=== PATIENT | male | born 1955 | race Two or more races ===

== ENCOUNTER 2023-04-14 05:06 | Emergency (ER) | payer OTHER ==
[~2023-04-14] VITALS: Ht 182.9 cm; Wt 122.7 kg
[2023-04-14 05:20] VITALS: BP 145/88; PULSE 90; RESP 16; O2SAT 95
== END 2023-04-14 06:37 | disposition left against medical advice (07) ==
LOC: ER 05:06
DX: R22.41 Localized swelling, mass and lump, right lower limb (principal); M79.604 Pain in right leg; R22.43 Localized swelling, mass and lump, lower limb, bilateral; Z53.21 Procedure and treatment not carried out due to patient leaving prior to being seen by health care provider

== ENCOUNTER 2025-05-17 16:27 | Inpatient (IN) | payer OTHER ==
[~2025-05-17] VITALS: Ht 182.9 cm; Wt 118.1 kg
[2025-05-17] MEDS ORDERED: CEFEPIME 1GM/50ML 50 ML IV ONE (16:45)
--- NOTE | 2025-05-17 16:55 | ED.PDOC ---
GI ASSESSMENT HPI Comments HPI: This is a 70 year old male MEÑOA presenting to the ED with chief complaint of abdominal pain. EMS reports that the patient had been lifting heavy rocks today and then started to experience umbilical abdominal pain at the center of a hernia he has had for the past 2 years. Patient relays that his pain has been occurring over the past 2 years he has had the hernia, but worsened the last 2 hours. EMS states patient has associated symptoms of fever, bilateral leg edema, and SOB with an O2 saturation of 86% on RA. Patient denies any N/V/D, chills, chest pain, dizziness, or headache. Past Medical History: COPD, HTN, Umbilical Hernia x2 years Past Surgical History: Appendectomy Social History: Denies smoking, ETOH, or drug use. Medications: Reviewed Allergies: NKDA HPI: Poor Historian. Patient was hypoxic at home requiring supplemental oxygen REVIEW OF SYSTEMS: CONSTITUTIONAL: Denies acute: diaphoresis, chills, HEAD: Denies acute: headache, photophobia Eyes: Denies acute: Double vision, vision loss, eye pain, eye discharge. EARS: Denies acute: tinnitus, hearing loss, ear discharge, ear pain, THROAT: Denies acute: sore throat, swelling, difficulty swallowing , pain with swallowing, change in voice. NECK: Denies acute: neck pain, neck swelling, stiff neck. HEART: Denies acute : chest pain, palpitations, LUNGS: Denies acute: SOB, wheezing, cough, hemoptysis ABDOMEN: Denies acute: Nausea, Vomiting, diarrhea, melena , hematemesis, hematochezia SKIN: Denies acute: rash, redness, lesions, itchiness. EXTREMITIES: Denies acute: calf pain, numbness, tingling, weakness, denies pain in extremity. Denies acute: Low back pain. Neuro: Denies acute: focal neurological deficit, motor or sensory focal neurological deficit, tremors, seizure like activity, confusion, dizziness, change in mental status, loss of bowel or bladder function, cauda equina like symptoms. : Denies acute: dysuria, hematuria, flank pain, increase in urinary frequency. PSYCH: Denies acute: hallucination, suicidal ideation, homicidal ideation. PHYSICAL EXAM: General: ----moderate----acute distress, awake and alert. Head: normocephalic, atraumatic. No raccoon's eyes, no reynoso sign. Neck: supple, trachea is midline, no swelling. Throat: Normal phonation. Eyes:, no erythema, no purulent discharge, no proptosis, no icterus. Heart: regular tachycardia, no significant murmur appreciated. Lungs: Mild respiratory distress, Able to speak in full sentences. No wheezing, no rhonchi, no crackles. No stridors Clear to auscultation bilaterally. Abdomen: umbilical hernia tender to palpation, non distended, soft, no guarding, no rebound, + bowel sounds. not reducible. Wheeze Neuro: Awake, Alert, oriented to name, self, situation, follows commands GCS=15. Speech is normal. Skin: no petechia, no purpura, no cyanosis, non-pale, not jaundice. Lower extremities: --2/4 b/l - Pitting edema no deformity, no focal swelling, no calf TTP. Makes eye contact. moves all four extremities. Face: no apparent facial droop. ED COURSE: DISCLAIMER: This medical document was created using an electronic medical record system with voice recognition software and computerized dictation system. Although this document has been carefully reviewed, there might still be some phonetic and typographical errors. Occasional wrong-word or "sound-alike" substitutions may have occurred due to the inherent limitations of voice recognition software. These areas are purely typographical due to imperfections of the software programs and do not reflect any compromise in the patient's medical care. Please read the chart carefully and recognize, using context, where these substitutions have occurred. Chief Complaint: Abdominal Pain Time Seen by MD: 16:51 Reviewed Notes: Medications, Allergies Allergies: Coded Allergies: NO KNOWN ALLERGIES (Unverified , 04/14/23) Home Meds Active Scripts Famotidine (Pepcid AC) 20 Mg Tab, 20 MG PO DAILY, #20 TAB Prov:CARLOS KRUGER MD 05/21/25 Prednisone (Prednisone) 20 Mg Tab, 20 MG PO BID, #10 MG Prov:CARLOS KRUGER MD 05/21/25 Albuterol Sulfate (Albuterol Sulfate Hfa) 108 Mcg/Act Aer, 108 MCG IN Q4HPRN PRN, #1 AER Prov:CARLOS KRUGER MD 05/21/25 Amoxicillin & Pot Clavulanate (Augmentin) 500 Mg Tab, 1 TAB PO BID, #14 TAB Prov:CARLOS KRUGER MD 05/21/25 Metoprolol Succinate (Toprol Xl) 50 Mg Tab, 50 MG PO DAILY, #90 TAB Prov:CARLOS KRUGER MD 05/21/25 Lactulose (Lactulose) 10 Gm/15 Ml Nancy, 30 ML PO QPM, #120 ML Prov:CARLOS KRUGER MD 05/21/25 Flecainide Acetate (TAMBOCOR TABLET) 50 Mg Tb, 50 MG PO BID, #60 TAB Prov:CARLOS KRUGER MD 05/21/25 Apixaban Base (ELIQUIS) 5 Mg Tab, 5 MG PO BID, #90 TAB Prov:CARLOS KRUGER MD 05/21/25 Reported Medications Albuterol Sulfate (Albuterol Sulfate Hfa) 108 Mcg/Act Aer, INH 05/18/25 Information Source: Patient, Emergency Med Personnel Mode of Arrival: EMS Was a procedure done? Was a procedure done?: No GI differential Dx Differential Diagnosis: Other (DDX include but not limited to diverticulitis, colitis, gastroenteritis, acute abdomen, SBO, enteritis, constipation, volvulus, appendicitis, Gallbladder disease, choledocolithiasis, ascending cholangitis, pancreatitis, intraAbdominal mass/neoplasm, hepatitis, UTI, pylonephritis, kidney stone, aneurysm, dissection, Inflammatory bowel disease, gastroparesis, ischemic bowel.Food poisoning, bacterial/parasitic/viral etiology, trauma, diabetes DKA,) X-Ray, Labs, Meds, VS Vital Signs Date Time Temp Pulse Resp B/P (MAP) Pulse Ox O2 Delivery O2 Flow Rate FiO2 05/17/25 23:37 100.8 111 18 108/68 94 3.0 100.8 05/17/25 21:55 88/58 (68) 05/17/25 19:36 102 20 94 Nasal Cannula* 2 28 05/17/25 19:36 100.8 105 20 108/68 (81) 93 100.8 05/17/25 19:05 104 24 105/48 (67) 94 05/17/25 18:57 100.8 100.8 05/17/25 18:30 108/68 05/17/25 18:30 108 23 97/42 (60) 94 05/17/25 17:36 18 Nasal Cannula* 3 32 05/17/25 17:02 104 20 98 Nasal Cannula* 3 32 05/17/25 17:02 103.0 104 20 116/52 (73) 98 103.0 05/17/25 16:37 101.4 110 18 213/92 92 101.4 05/17/25 16:33 109 Lab Test 05/17/25 20:25 05/17/25 19:18 05/17/25 18:48 05/17/25 18:29 Range/Units Troponin I High Sensitivity 15 16 </=54 ng/L Lactic Acid Level 2.0 0.4-2.0 mmol/L Urine Color Light-yellow Yellow Urine Clarity Clear Clear Urine pH 6.5 5.0-9.0 Urine Specific Rothschild 1.014 1.001-1.035 Urine Protein Negative Negative Urine Ketones Negative Negative Urine Blood Negative Negative /uL Urine Nitrite Negative Negative Urine Bilirubin Negative Negative Urine Urobilinogen Normal Negative mg/dL Urine Leukocyte Esterase Negative Negative /uL Urine RBC 1 0 - 3 /hpf Urine Microscopic WBC 0-3 /HPF Urine Squamous Epithelial Cells None seen <5 /hpf Urine Bacteria None seen None Seen /hpf Urine Glucose Trace Normal mg/dL Urine Opiates Screen Neg NEGATIVE Urine Fentanyl Screen Neg NEGATIVE Urine Barbiturates Screen Neg NEGATIVE Urine Phencyclidine Screen Neg NEGATIVE Urine Amphetamines Screen Pos NEGATIVE Urine Benzodiazepines Screen Neg NEGATIVE Urine Cocaine Screen Neg NEGATIVE Urine Cannabinoids Screen Neg NEGATIVE Test 05/17/25 17:07 Range/Units White Blood Count 10.6 4.4-10.8 10^3/uL Red Blood Count 4.44 L 4.5-5.90 10^6/uL Hemoglobin 13.8 13.5-17.5 g/dL Hematocrit 41.0 41.0-53.0 % Mean Corpuscular Volume 92.4 80.0-100.0 fL Mean Corpuscular Hemoglobin 31.1 28.0-32.0 pg Mean Corpuscular Hemoglobin Concent 33.7 32.0-36.0 g/dL Red Cell Distribution Width 14.0 11.8-14.3 % Platelet Count 190 140-450 10^3/uL Mean Platelet Volume 9.3 6.9-10.8 fL Neutrophils (%) (Auto) 91.1 H 37.0-80.0 % Lymphocytes (%) (Auto) 5.7 L 10.0-50.0 % Monocytes (%) (Auto) 1.6 0.0-12.0 % Eosinophils (%) (Auto) 1.2 0.0-7.0 % Basophils (%) (Auto) 0.4 0.0-2.0 % Neutrophils # (Auto) 9.7 H 1.6-8.6 10 ^3/uL Lymphocytes # (Auto) 0.6 0.4-5.4 10 ^3/uL Monocytes # (Auto) 0.2 0-1.3 10 ^3/uL Eosinophils # (Auto) 0.1 0-0.8 10 ^3/uL Basophils # (Auto) 0 0-0.2 10 ^3/uL Nucleated Red Blood Cells 0.0 % Prothrombin Time 10.8 9.3-11.8 sec Prothrombin Time INR 1.02 0.9-1.15 Activated Partial Thromboplast Time 25.9 24.5-34.5 SEC Sodium Level 138 136-145 mmol/L Potassium Level 4.0 3.5-5.1 mmol/L Chloride Level 104 98-107 mmol/L Carbon Dioxide Level 25 20-31 mmol/L Anion Gap 9 5-15 Blood Urea Nitrogen 11 9-23 mg/dL Creatinine 1.02 0.700-1.30 mg/dL Glomerular Filtration Rate Calc 80 >90 mL/min BUN/Creatinine Ratio 10.8 10.0-20.0 Serum Glucose 172 H 74-106 mg/dL Lactic Acid Level 2.1 *H 0.4-2.0 mmol/L Calcium Level 9.2 8.7-10.4 mg/dL Total Bilirubin 0.3 0.2-1.0 mg/dL Aspartate Amino Transferase (AST) 21 13-40 U/L Alanine Aminotransferase (ALT) 18 7-40 U/L Alkaline Phosphatase 83 46-116 U/L Troponin I High Sensitivity 10 </=54 ng/L B-Type Natriuretic Peptide 73.73 0-100 pg/mL Total Protein 7.6 5.7-8.2 g/dL Albumin 3.8 3.2-4.8 g/dL Microbiology Date/Time Source Procedure Growth Status 05/17/25 17:07 Blood Blood Culture - Final Strep Dysgalac (Grp C)/Grp G Complete 05/17/25 16:54 Blood Blood Culture - Final Strep Dysgalac (Grp C)/Grp G Complete [facility] [address] [facility] [address] Ph: [phone] DIAGNOSTIC IMAGING Diagnostic Imaging Report : [id number] Signed PATIENT: LUIS HUBBARD ACCT: [id number] UNIT: [id number] : 1955 LOC: ER ROOM / BED: / AGE / SEX: 70 / M ADM STATUS: REG ER SERVICE 35 ORDERING PHYSICIAN: LEEANN FITZPATRICK DO PROCEDURE(s): ABPL - CT AB PEL WO CON-NO ORAL OR IV REASON: UMBILICAL HERNIA PAIN ORDER NUMBER(s): [id number], ACCESSION NUMBER(s): [id number] EXAM: CT CT AB PEL WO CON-NO ORAL OR IV History: UMBILICAL HERNIA PAIN Comparison Study: CT ABD/PEL on DOS: 11/27/24 TECHNIQUE: Multidetector CT of the abdomen was performed from lung bases to pubic symphysis. Imaging was performed without IV contrast. Axial, coronal and sagittal multiplanar reformats were obtained from the axial data set by the technologist. Radiation Dose Information: CT Dose: CTDI volume is 23.48 mGy. Dose-length product is 1245.48 mGy*cm FINDINGS: Evaluation of solid organs is limited due to lack of intravenous contrast use. FINDINGS: Lung Bases: Increased interstitial markings are seen throughout both lungs and there appears to be mild honeycombing at the lung bases. Normal heart size. No pleural or pericardial effusion. Liver: The liver is normal in size. No focal lesions. Gallbladder and Biliary Tree: Unremarkable Spleen: Unremarkable Pancreas: The pancreas is grossly normal in appearance. Adrenal Glands: Unremarkable Kidneys: Kidneys are grossly normal without calculi or hydronephrosis. Bladder: Grossly unremarkable for degree of distention. Bowel: The stomach is grossly normal in appearance. Small bowel and colon are normal in caliber and distribution. The appendix is not visualized; however, no secondary findings of acute appendicitis identified. Ascites: Absent Lymphadenopathy: No mesenteric, retroperitoneal or periportal lymphadenopathy. Abdominal Wall and Mesentery: There is a large umbilical hernia containing non incarcerated fat. Vasculature: The visualized abdominal aorta is normal in size and caliber. Evaluation of abdominal and pelvic vessels is limited due to lack of intravenous contrast. Pelvic Organs: Unremarkable Musculoskeletal: No aggressive focal bony lesions, acute fractures or dislocation. Soft tissues: Unremarkable IMPRESSION: 1. Large umbilical hernia containing fat. 2. Increased interstitial markings are seen throughout both lungs and there appears to be mild honeycombing at the lung bases, clinical correlation recommended. 3. Radiation optimization: All CT scans at this facility use at least one of these dose optimization techniques: automated exposure control mA and/or kV adjustment per patient size (includes targeted exams where dose is matched to clinical indication) or iterative reconstruction. ATED BY: LUKAS DENNIS MD DICTATED DATE/TIME: 05/17/251751 SIGNED BY: LUKAS DENNIS MD SIGNED DATE/TIME: 05/17/251751 CC: [place] [address] Ph: [phone] DIAGNOSTIC IMAGING Diagnostic Imaging Report : [id number] Signed PATIENT: LUIS HUBBARD ACCT: [id number] UNIT: [id number] : 1955 LOC: ER ROOM / BED: / AGE / SEX: 70 / M ADM STATUS: REG ER SERVICE 1640 ORDERING PHYSICIAN: LEEANN FITZPATRIKC DO PROCEDURE(s): CXRP - CHEST PORTABLE REASON: SEPSIS ORDER NUMBER(s): [id number], ACCESSION NUMBER(s): [id number] CHEST RADIOGRAPH INDICATION: SEPSIS TECHNIQUE: Single frontal view of the chest was obtained COMPARISON: None FINDINGS: Lines and Tubes: None Lungs: Increased vascular prominence in the hilar regions bilaterally findings may represent developing congestive failure Pleura: No effusion. No pneumothorax. Cardiomediastinal contours: Upper limits of normal Bones: No acute osseous abnormality. IMPRESSION: 1. Marginal cardiomegaly with bilateral perihilar vascular congestion. Findings of congestive failure versus infection are both in the differential correlate clinically. ATED BY: TRI BUTLER Jr., DO DICTATED DATE/TIME: 05/17/251734 SIGNED BY: TRI BUTLER Jr., SIGNED DATE/TIME: 05/17/251734 CC: X-Ray, Labs, Meds, VS Comment [address] [address] Ph: [phone] DIAGNOSTIC IMAGING Diagnostic Imaging Report : [id number] Signed PATIENT: LUIS HUBBARD ACCT: [id number] UNIT: [id number] : 1955 LOC: ER ROOM / BED: / AGE / SEX: 70 / M ADM STATUS: REG ER SERVICE 12 ORDERING PHYSICIAN: LEEANN FITZPATRICK DO PROCEDURE(s): ABPLIV - CT AB PEL WITH IV CON ONLY REASON: umbilical hernia ORDER NUMBER(s): [id number], ACCESSION NUMBER(s): [id number] EXAM: CT CT AB PEL WITH IV CON ONLY History: umbilical hernia, pain COMPARISON: CT CT AB PEL WO CON-NO ORAL OR IV on DOS: 05/17/25, CT ABD/PEL on DOS: 11/27/24 TECHNIQUE: Multidetector spiral CT of the abdomen and pelvis was performed from lung bases to pubic symphysis. Intravenous contrast was administered during this examination. Portal venous imaging was obtained. Axial, coronal and sagittal multiplanar reformats were performed by the technologist on a separate workstation. Radiation Dose : 1. Abdomen/Pelvis: CTDIvol 23.76mGy, DLP 1449.96 mGy*cm. CONTRAST: Type of contrast: Omnipaque 300 Contrast injected: 100 ml FINDINGS: Lung Bases: No acute or significant lung base finding. Normal heart size. No pleural or pericardial effusion. Liver: Enlarged with hepatic steatosis. Gallbladder and Biliary Tree: Unremarkable Spleen: Unremarkable Pancreas: The pancreas is normal in appearance without focal lesions or abnormal enhancement. Adrenal Glands: Unremarkable Kidneys: No hydronephrosis. Bladder: Unremarkable Bowel: The stomach is grossly normal in appearance. Small bowel and colon are normal in caliber and distribution. The appendix is not visualized; however, no secondary findings of acute appendicitis identified. Ascites: Absent Lymphadenopathy: Few enlarged bilateral inguinal region lymph nodes with mild surrounding inflammatory changes on the right. These measure up to 2.2 cm short axis. Multiple enlarged lymph nodes along the right common and external iliac chains measuring up to 2.0 cm short axis. Abdominal Wall and Mesentery: Fat containing periumbilical hernia with hernia sac measuring 9.0 x 7.1 cm and hernia neck measuring 2.9 cm. No herniated bowel loops or significant inflammatory changes. Vasculature: The visualized abdominal aorta is normal in size and caliber. Abdominal and pelvic vessels demonstrate normal enhancement. Pelvic Organs: Unremarkable Musculoskeletal: No aggressive focal bony lesions, acute fractures or dislocation. IMPRESSION: Fat containing periumbilical hernia without herniated bowel loops or significant inflammatory changes. But enlarged bilateral inguinal region lymph nodes with mild surrounding inflammatory changes on the right. These are presumably reactive. Please correlate with any obvious lower extremity infection. Radiation optimization: All CT scans at this facility use at least one of these dose optimization techniques: automated exposure control mA and/or kV adju stment per patient size (includes targeted exams where dose is matched to clinical indication) or iterative reconstruction. ATED BY: CHEN CRAFT MD DICTATED DATE/TIME: 05/17/252345 SIGNED BY: CHEN CRAFT MD SIGNED DATE/TIME: 05/17/252345 CC: Time of 1ST Reevaluation: 17:51 Reevaluation 1ST: Unchanged Time of 2ND Reevaluation: 20:21 (The case was discussed with the admitting team (HPI, physical exam, labs and diagnostic tests that were available at the time of disposition, ED course, treatment plan) on the phone. They agreed to admit the patient to their service and assume care of this patient from this point forward. COLLINS Bailon. ) Patient Education/Counseling: Diagnosis, Treatment Family Education/Counseling: No Family Present Comments MDM: patient presented with the above HPI.---abdominal pain---workup was initiated. patient was found with the above mentioned diagnosis. the following medications were ordered: please refer to order lists of meds and tests obtained by myself Dr. Fitzpatrick. Patient ED course and VS have been stabilized. Patient has been reassessed in the ED and remained in a stable condition. RADIOLOGY: I have reviewed all the radiological reports ordered by myself that were available at the time of disposition. EKG: I have reviewed the initial EKG and interpreted it in the absence of cardiology formal read. Pertinent incidental findings were discussed with the patient and/or family. Patient/family voices understanding and is agreeable with plan. Patient has been observed in the ED adequate length of time to insure improvement/stability. Escalation of care considered: Consideration of escalation to observation or admission Sepsis protocol was initiated. Patient was ADMITTED to the medicine team for further evaluation and treatment of their presentation. All the reports of any imaging studies that were ordered by myself were reviewed by myself. Departure 1 Departure Time of Disposition: 19:37 Impression: Primary Impression: Sepsis Additional Impressions: Umbilical hernia Fever Hypoxemia Pulmonary abscess Pulmonary vascular congestion Noncompliance with medications Methamphetamine abuse Disposition: ADMITTED INPATIENT Admit to: Tele Condition: Guarded e-Prescriptions Famotidine (Pepcid AC) 20 Mg Tab 20 MG PO DAILY, #20 TAB Prov: CARLOS KRUGER MD 05/21/25 Prednisone (Prednisone) 20 Mg Tab 20 MG PO BID, #10 MG Prov: CARLOS KRUGER MD 05/21/25 Albuterol Sulfate (Albuterol Sulfate Hfa) 108 Mcg/Act Aer 108 MCG IN Q4HPRN PRN, #1 AER Prov: CARLOS KRUGER MD 05/21/25 Amoxicillin & Pot Clavulanate (Augmentin) 500 Mg Tab 1 TAB PO BID, #14 TAB Prov: CARLOS KRUGER MD 05/21/25 Metoprolol Succinate (Toprol Xl) 50 Mg Tab 50 MG PO DAILY, #90 TAB Prov: CARLOS KRUGER MD 05/21/25 Lactulose (Lactulose) 10 Gm/15 Ml Nancy 30 ML PO QPM, #120 ML Prov: CARLOS KRUGER MD 05/21/25 Flecainide Acetate (TAMBOCOR TABLET) 50 Mg Tb 50 MG PO BID, #60 TAB Prov: CARLOS KRUGER MD 05/21/25 Apixaban Base (ELIQUIS) 5 Mg Tab 5 MG PO BID, #90 TAB Prov: CARLOS KRUGER MD 05/21/25 Discharged With: Self Critical Care Note Critical Care Time?: Yes (45 min-critical care time only) Critical care comment: Due to a high probability of clinically significant, life threatening deterioration, the patient required my highest level of preparedness to intervene emergently and I personally spent this critical care time directly and personally managing the patient. This critical care time included obtaining a history; examining the patient; pulse oximetry; ordering and review of studies; arranging urgent treatment with development of a management plan; evaluation of patient's response to treatment; frequent reassessment; and, discussions with other providers. This critical care time was performed to assess and manage the high probability of imminent, life-threatening deterioration that could result in multi-organ failure. It was exclusive of separately billable procedures and treating other patients and teaching time. Please see my other sections and the rest of the note for further information on patient assessment and treatment. I personally scribed for LEEANN FITZPATRICK DO ([email or web address]) on 05/17/25 at 16:55. Electronically submitted by Reid Martell ([email or web address]). I personally scribed for LEEANN FITZPATRICK DO ([email or web address]) on 05/17/25 at 22:21. Electronically submitted by Sola Lino ([email or web address]). LEEANN FITZPATRICK DO May 17, 2025 16:55
[2025-05-17 17:02] VITALS: PULSE 104; RESP 20; O2SAT 98
[2025-05-17 17:26] LABS: Hematocrit 41.0 % (41.0-53.0); Hemoglobin 13.8 g/dL (13.5-17.5); Mean Corpuscular Hemoglobin 31.1 pg (28.0-32.0); Mean Corpuscular Volume 92.4 fL (80.0-100.0); Nucleated Red Blood Cells % 0.0 %
[2025-05-17] MEDS: IPRATROPIUM BROM 0.5 MG/2.5ML INH SOL NEB ONE (17:36)
[2025-05-17] MEDS: ALBUTEROL SULF 2.5 MG/0.5ML(0.5%) NEB SOLN NEB ONE (17:36)
--- NOTE | 2025-05-17 17:37 | DVH ---
CHEST RADIOGRAPH INDICATION: SEPSIS TECHNIQUE: Single frontal view of the chest was obtained COMPARISON: None FINDINGS: Lines and Tubes: None Lungs: Increased vascular prominence in the hilar regions bilaterally findings may represent developing congestive failure Pleura: No effusion. No pneumothorax. Cardiomediastinal contours: Upper limits of normal Bones: No acute osseous abnormality. IMPRESSION: 1. Marginal cardiomegaly with bilateral perihilar vascular congestion. Findings of congestive failure versus infection are both in the differential correlate clinically.
[2025-05-17 17:40] LABS: Alanine Aminotransferase 18 U/L (7-40); Albumin 3.8 g/dL (3.2-4.8); Alkaline Phosphatase 83 U/L (46-116); Anion Gap 9 (5-15); BUN/Creatinine Ratio 10.8 (10.0-20.0); Blood Urea Nitrogen 11 mg/dL (9-23); Calcium 9.2 mg/dL (8.7-10.4); Carbon Dioxide 25 mmol/L (20-31); Chloride 104 mmol/L (98-107); INR 1.02 (0.9-1.15); Partial Thromboplastin Time 25.9 SEC (24.5-34.5); Potassium 4.0 mmol/L (3.5-5.1); Prothrombin Time 10.8 sec (9.3-11.8); Sodium 138 mmol/L (136-145); Total Protein 7.6 g/dL (5.7-8.2)
[2025-05-17 17:42] LABS: Bilirubin, Total 0.3 mg/dL (0.2-1.0); Glucose 172 mg/dL (74-106)
[2025-05-17 17:44] LABS: Lactic Acid w/Reflex 2.1 mmol/L (0.4-2.0)
--- NOTE | 2025-05-17 17:54 | DVH ---
EXAM: CT CT AB PEL WO CON-NO ORAL OR IV History: UMBILICAL HERNIA PAIN Comparison Study: CT ABD/PEL on DOS: 11/27/24 TECHNIQUE: Multidetector CT of the abdomen was performed from lung bases to pubic symphysis. Imaging was performed without IV contrast. Axial, coronal and sagittal multiplanar reformats were obtained from the axial data set by the technologist. Radiation Dose Information: CT Dose: CTDI volume is 23.48 mGy. Dose-length product is 1245.48 mGy*cm FINDINGS: Evaluation of solid organs is limited due to lack of intravenous contrast use. FINDINGS: Lung Bases: Increased interstitial markings are seen throughout both lungs and there appears to be mild honeycombing at the lung bases. Normal heart size. No pleural or pericardial effusion. Liver: The liver is normal in size. No focal lesions. Gallbladder and Biliary Tree: Unremarkable Spleen: Unremarkable Pancreas: The pancreas is grossly normal in appearance. Adrenal Glands: Unremarkable Kidneys: Kidneys are grossly normal without calculi or hydronephrosis. Bladder: Grossly unremarkable for degree of distention. Bowel: The stomach is grossly normal in appearance. Small bowel and colon are normal in caliber and distribution. The appendix is not visualized; however, no secondary findings of acute appendicitis identified. Ascites: Absent Lymphadenopathy: No mesenteric, retroperitoneal or periportal lymphadenopathy. Abdominal Wall and Mesentery: There is a large umbilical hernia containing non incarcerated fat. Vasculature: The visualized abdominal aorta is normal in size and caliber. Evaluation of abdominal and pelvic vessels is limited due to lack of intravenous contrast. Pelvic Organs: Unremarkable Musculoskeletal: No aggressive focal bony lesions, acute fractures or dislocation. Soft tissues: Unremarkable IMPRESSION: 1. Large umbilical hernia containing fat. 2. Increased interstitial markings are seen throughout both lungs and there appears to be mild honeycombing at the lung bases, clinical correlation recommended. 3. Radiation optimization: All CT scans at this facility use at least one of these dose optimization techniques: automated exposure control mA and/or kV adjustment per patient size (includes targeted exams where dose is matched to clinical indication) or iterative reconstruction.
[2025-05-17] MEDS: LACTATED RINGER'S 2,250 ML IV ONE (18:00)
[2025-05-17] MEDS: methylPREDNISolone SOD SUCC 125 MG/2 ML VL IV ONE (18:01)
[2025-05-17] MEDS: ACETAMINOPHEN IV 1000 MG/100ML (10MG/ML) IV ONE (18:02)
[2025-05-17] MEDS: CEFEPIME 1GM/50ML 50 ML IV ONE (18:06)
[2025-05-17] MEDS: FUROSEMIDE 40 MG/4 ML VIAL IV ONE (18:30)
[2025-05-17 18:41] LABS: Urine Protein, UAD Negative (Negative)
[2025-05-17] MEDS: VANCOMYCIN 1GM/250ML KIT 250 ML IV ONE (19:06)
[2025-05-17 19:27] LABS: Amphetamine Screen, Urine Pos (NEGATIVE); Barbiturate Scree,Urine Neg (NEGATIVE); Benzodiazephine Screen, Urine Neg (NEGATIVE); Cannabinoid Screen, Urine Neg (NEGATIVE); Cocaine Screen, Urine Neg (NEGATIVE); Opiate Scree,Urine Neg (NEGATIVE); Phencyclidine Screen, Urine Neg (NEGATIVE)
[2025-05-17 19:36] VITALS: PULSE 102; RESP 20; O2SAT 94
[2025-05-17] MEDS: IOHEXOL 300 MG/ML 100ML BOTTLE IJ ONE (19:44)
[2025-05-17] MEDS: SODIUM CHLORIDE 0.9% 1,000 ML IV SCH (23:30)
[2025-05-17] MEDS ORDERED: VANCOMYCIN PER PHARMACY 0 MG IV SCH (23:30)
[2025-05-17] MEDS ORDERED: MORPHINE SULFATE INJ 2 MG/ml SYRG IV PRN (23:30)
[2025-05-17] MEDS ORDERED: ONDANSETRON HCL 4 MG/2 ML VIAL IV PRN (23:30)
[2025-05-17] MEDS ORDERED: DEXTROSE (50%) 50ML SYRG IV PRN (23:30)
[2025-05-17 23:37] VITALS: BP 108/68; PULSE 111; RESP 18; TEMP 100.8; O2SAT 94
[2025-05-17] MEDS: VANCOMYCIN 1GM/250ML KIT IV ONE (23:45)
--- NOTE | 2025-05-17 23:48 | DVH ---
EXAM: CT CT AB PEL WITH IV CON ONLY History: umbilical hernia, pain COMPARISON: CT CT AB PEL WO CON-NO ORAL OR IV on DOS: 05/17/25, CT ABD/PEL on DOS: 11/27/24 TECHNIQUE: Multidetector spiral CT of the abdomen and pelvis was performed from lung bases to pubic symphysis. Intravenous contrast was administered during this examination. Portal venous imaging was obtained. Axial, coronal and sagittal multiplanar reformats were performed by the technologist on a separate workstation. Radiation Dose : 1. Abdomen/Pelvis: CTDIvol 23.76mGy, DLP 1449.96 mGy*cm. CONTRAST: Type of contrast: Omnipaque 300 Contrast injected: 100 ml FINDINGS: Lung Bases: No acute or significant lung base finding. Normal heart size. No pleural or pericardial effusion. Liver: Enlarged with hepatic steatosis. Gallbladder and Biliary Tree: Unremarkable Spleen: Unremarkable Pancreas: The pancreas is normal in appearance without focal lesions or abnormal enhancement. Adrenal Glands: Unremarkable Kidneys: No hydronephrosis. Bladder: Unremarkable Bowel: The stomach is grossly normal in appearance. Small bowel and colon are normal in caliber and distribution. The appendix is not visualized; however, no secondary findings of acute appendicitis identified. Ascites: Absent Lymphadenopathy: Few enlarged bilateral inguinal region lymph nodes with mild surrounding inflammatory changes on the right. These measure up to 2.2 cm short axis. Multiple enlarged lymph nodes along the right common and external iliac chains measuring up to 2.0 cm short axis. Abdominal Wall and Mesentery: Fat containing periumbilical hernia with hernia sac measuring 9.0 x 7.1 cm and hernia neck measuring 2.9 cm. No herniated bowel loops or significant inflammatory changes. Vasculature: The visualized abdominal aorta is normal in size and caliber. Abdominal and pelvic vessels demonstrate normal enhancement. Pelvic Organs: Unremarkable Musculoskeletal: No aggressive focal bony lesions, acute fractures or dislocation. IMPRESSION: Fat containing periumbilical hernia without herniated bowel loops or significant inflammatory changes. But enlarged bilateral inguinal region lymph nodes with mild surrounding inflammatory changes on the right. These are presumably reactive. Please correlate with any obvious lower extremity infection. Radiation optimization: All CT scans at this facility use at least one of these dose optimization techniques: automated exposure control mA and/or kV adjustment per patient size (includes targeted exams where dose is matched to clinical indication) or iterative reconstruction.
[2025-05-18] VITALS (21 sets, daily range): BP systolic 104–153; BP diastolic 54–83; PULSE 80–100; RESP 15–24; TEMP 98.3–100.8; O2SAT 75–99
[2025-05-18] MEDS: InsuLIN REG 1unit/0.01ml Soln (100units/ml) SC SCH
[2025-05-18] MEDS: ACCU-CHEK COMFORT CURVE STRIP VI SCH
--- NOTE | 2025-05-18 | DVHINCON2 ---
Date of service: May 17, 2025 Referring Physician COLLINS Pablo Reason for Consultation Acute hypoxic respiratory failure History of Present Illness This is a 70 year old man with PMHx of COPD, hypertension and Umbilical Hernia who presents to the ED today with chief complaint of abdominal pain. EMS reports that the patient had been lifting heavy rocks today and then started to experience umbilical abdominal pain at the center of a hernia he has had for the past 2 years. Patient relates that his pain has been occurring over the past 2 years that he has had the hernia, but worsened in the last 2 hours. He c/o associated symptoms of fever, bilateral leg edema, and shortness of breath with an O2 saturation of 86% on RA. Patient denies any N/V/D, chills, chest pain, dizziness, or headache. Patient was admitted for further care. Pulmonary consultation is requested for evaluation and management of acute hypoxic respiratory failure. Review of Systems: 14-point review of systems negative unless otherwise noted above. Past Medical History: COPD, HTN, Umbilical Hernia x2 years Past Surgical History: Appendectomy Medications: Reviewed. Allergies: No known drug allergies. Family History: No family history of premature CAD. No family history of lung disorders. Social History: Nonsmoker. No alcohol or illicit drug use. Allergies: Coded Allergies: NO KNOWN ALLERGIES (Unverified , 04/14/23) Home Meds Reported Medications Potassium Chloride (POTASSIUM CHLORIDE CR) 10 Meq Tb, 20 MEQ PO DAILY, TAB 05/18/25 Ibuprofen Micronized (Ibuprofen) 800 Mg Tab, TAB PO 05/18/25 Albuterol Sulfate (Albuterol Sulfate Hfa) 108 Mcg/Act Aer, INH 05/18/25 Current Medications Current Medications Medications (Trade) Dose Ordered Sig/Reina Route PRN Reason Start Time Stop Time Status Last Admin Sodium Chloride 1,000 ml @ 100 mls/hr Q10H IV 05/17/25 23:30 05/18/25 09:29 Cefepime HCl 50 ml @ 12.5 mls/hr Q8HR IV 05/18/25 06:00 Albuterol (Ventolin Medneb) 2.5 mg Q4HR NEB 05/18/25 02:00 Ipratropium [place] (Atrovent Medneb) 0.5 mg Q4HR NEB 05/18/25 02:00 Vancomycin HCl 0 ml @ 0 mls/hr PER PHARMACY IV 05/17/25 23:30 UNV Morphine Sulfate 2 mg Q4HPRN PRN IV SEVERE PAIN (7-10 PAIN SCALE) 05/17/25 23:30 Ondansetron HCl (Zofran) 4 mg Q4HP PRN IV NAUSEA / VOMITING 05/17/25 23:30 Diagnostic Test (Pha) (Accu-Chek Comfort Curve T) 1 strip Q6HR 05/18/25 00:00 Insulin Human Regular (InsuLIN R) Q6HR SC 05/18/25 00:00 Dextrose 50 ml UD PRN IV Blood Sugar LESS THAN 60 05/17/25 23:30 Acetaminophen (Tylenol Solution Oral) 650 mg Q6HP PRN PO PAIN SCALE 1-3 OR TEMP>100.4 05/17/25 23:45 Vital Signs Vital Signs Date Time Temp Pulse Resp B/P (MAP) Pulse Ox O2 Delivery O2 Flow Rate FiO2 05/17/25 23:37 100.8 111 18 108/68 94 3.0 100.8 05/17/25 19:36 Nasal Cannula* 28 Physical Exam Gen.: Patient lying in bed in no apparent distress. On supplemental oxygen. Head: Normocephalic, atraumatic. Eyes: EOMI/PERRLA. Ears: Normal hearing. Normal anatomy. Neck/trachea: Trachea midline, supple. Nose: Normal external anatomy. Mouth: Moist mucous membranes. Chest: Decreased air entry bilaterally. No wheezing or rhonchi. Cardiovascular: Positive S1, positive S2. Regular rate and rhythm. Abdomen: Positive bowel sounds in all 4 quadrants. Soft, non-tender, non- distended. : Deferred. Rectal: Deferred. Skin: Warm, dry. Intact. Extremities: 2+ radial pulses bilaterally. No lower extremity edema. Neuro: Awake, alert, oriented x3. No gross motor or sensory deficits. Cranial nerves II through XII intact. Gait not assessed. Labs/Diagnostic Data Labs Test 05/17/25:25 05/17/25 19:18 05/17/25 18:29 05/17/25 17:07 Range/Units Troponin I High Sensitivity 15 </=54 ng/L Lactic Acid Level 2.0 0.4-2.0 mmol/L Urine Color Light-yellow Yellow Urine Clarity Clear Clear Urine pH 6.5 5.0-9.0 Urine Specific Hiram 1.014 1.001-1.035 Urine Protein Negative Negative Urine Ketones Negative Negative Urine Blood Negative Negative /uL Urine Nitrite Negative Negative Urine Bilirubin Negative Negative Urine Urobilinogen Normal Negative mg/dL Urine Leukocyte Esterase Negative Negative /uL Urine RBC 1 0 - 3 /hpf Urine Microscopic WBC 0-3 /HPF Urine Squamous Epithelial Cells None seen <5 /hpf Urine Bacteria None seen None Seen /hpf Urine Glucose Trace Normal mg/dL Urine Opiates Screen Neg NEGATIVE Urine Fentanyl Screen Neg NEGATIVE Urine Barbiturates Screen Neg NEGATIVE Urine Phencyclidine Screen Neg NEGATIVE Urine Amphetamines Screen Pos NEGATIVE Urine Benzodiazepines Screen Neg NEGATIVE Urine Cocaine Screen Neg NEGATIVE Urine Cannabinoids Screen Neg NEGATIVE White Blood Count 10.6 4.4-10.8 10^3/uL Red Blood Count 4.44 L 4.5-5.90 10^6/uL Hemoglobin 13.8 13.5-17.5 g/dL Hematocrit 41.0 41.0-53.0 % Mean Corpuscular Volume 92.4 80.0-100.0 fL Mean Corpuscular Hemoglobin 31.1 28.0-32.0 pg Mean Corpuscular Hemoglobin Concent 33.7 32.0-36.0 g/dL Red Cell Distribution Width 14.0 11.8-14.3 % Platelet Count 190 140-450 10^3/uL Mean Platelet Volume 9.3 6.9-10.8 fL Neutrophils (%) (Auto) 91.1 H 37.0-80.0 % Lymphocytes (%) (Auto) 5.7 L 10.0-50.0 % Monocytes (%) (Auto) 1.6 0.0-12.0 % Eosinophils (%) (Auto) 1.2 0.0-7.0 % Basophils (%) (Auto) 0.4 0.0-2.0 % Neutrophils # (Auto) 9.7 H 1.6-8.6 10 ^3/uL Lymphocytes # (Auto) 0.6 0.4-5.4 10 ^3/uL Monocytes # (Auto) 0.2 0-1.3 10 ^3/uL Eosinophils # (Auto) 0.1 0-0.8 10 ^3/uL Basophils # (Auto) 0 0-0.2 10 ^3/uL Nucleated Red Blood Cells 0.0 % Prothrombin Time 10.8 9.3-11.8 sec Prothrombin Time INR 1.02 0.9-1.15 Activated Partial Thromboplast Time 25.9 24.5-34.5 SEC Sodium Level 138 136-145 mmol/L Potassium Level 4.0 3.5-5.1 mmol/L Chloride Level 104 98-107 mmol/L Carbon Dioxide Level 25 20-31 mmol/L Anion Gap 9 5-15 Blood Urea Nitrogen 11 9-23 mg/dL Creatinine 1.02 0.700-1.30 mg/dL Glomerular Filtration Rate Calc 80 >90 mL/min BUN/Creatinine Ratio 10.8 10.0-20.0 Serum Glucose 172 H 74-106 mg/dL Calcium Level 9.2 8.7-10.4 mg/dL Total Bilirubin 0.3 0.2-1.0 mg/dL Aspartate Amino Transferase (AST) 21 13-40 U/L Alanine Aminotransferase (ALT) 18 7-40 U/L Alkaline Phosphatase 83 46-116 U/L B-Type Natriuretic Peptide 73.73 0-100 pg/mL Total Protein 7.6 5.7-8.2 g/dL Albumin 3.8 3.2-4.8 g/dL Assessment Impression: Sepsis Acute hypoxic respiratory failure Dependence on supplemental O2 Type 2 diabetes mellitus Nicotine dependence Methamphetamine abuse Obesity Plan: Supplemental oxygen Titrate to keep O2 sats above 92%. CXR demonstrates marginal cardiomegaly with bilateral perihilar vascular congestion. Findings of congestive failure versus infection. CT abdomen-pelvis reviewed, shows fat-containing periumbilical hernia without herniated bowel loops or significant inflammatory changes. Enlarged bilateral inguinal region lymph nodes with mild surrounding inflammatory changes on the right. These are presumably reactive. Continue bronchodilators. Continue antibiotics F/u cultures IV steroids ID consult Follow up Echocardiogram Follow up Cardiology recs Accu-Cheks, ISS. Diurese with Lasix as tolerated Monitor renal function. Monitor electrolytes. Supplement as necessary. Monitor ins and outs. Recommend diet and lifestyle modifications for weight reduction Obesity complicates all care Smoking cessation discussed greater than 10 minutes. Counseled against substance use. DVT prophylaxis. Prognosis: Poor given patient's multiple co-morbidities. Rest of plan per hospitalist and other consultants. Thank you, COLLINS Pablo, for allowing me to participate in this patient's care. Further recommendations will depend on the patient's clinical course. Please do not hesitate to contact me if you have any questions or concerns. This medical document was created using an electronic medical record system with [employer] computerized dictation system. Although these documentations are being carefully reviewed, there may still be some phonetic and typographical changes. The errors are purely typographical, due to imperfection on the software program, and do not reflect any compromise in the patient's medical care. Plan discussed with: Patient, Other (RN/MD) WHITNEY MCKEON May 18, 2025 00:00
[2025-05-18] MEDS ORDERED: NITROGLYCERIN 0.4 MG SL TAB SL PRN (00:30)
[2025-05-18] MEDS ORDERED: DOCUSATE SOD 100 MG CAP PO PRN (00:30)
--- NOTE | 2025-05-18 00:47 | DVHHP2 ---
CHEN VALDIVIA SHEET METAL FORMER 05/18/25 0047: History of Present Illness Reason for Visit: Abdominal pain History of Present Illness 70-year-old male with past medical history of DM type 2, chronic venous stasis, medical noncompliance, COPD, RLE cellulitis, chronic methamphetamine abuse, nicotine dependence presents with complaints of abdominal pain x1 day. Patient endorsed to ER provider he was moving rocks when suddenly felt the sharp abdominal pain. On arrival to the emergency department the patient is found to be mildly tachycardic 110, BP 116/52. and febrile temperature 101.4. EMS reported the Patient was also hypoxic requiring supplemental oxygen with an oxygen saturation of 86% on room air. During the emergency department evaluation W10.6, H&H 13.8/41.0, Na 138, K4.0, BUN 11, creatinine 1.02, GFR 80, BNP 73, troponin negative. CXR reads marginal cardiomegaly with bilateral perihilar vascular congestion. Findings of congestive failure versus infection or both in the differential. CT of the abdomen and pelvis with IV contrast impression reads fat containing periumbilical hernia without herniated bowel loops or significant inflammatory changes. Enlarged bilateral inguinal regional lymph nodes with mild surrounding inflammatory change on the right presumably reactive. At this time there are no complaints of chest pain, palpitations, nausea, vomiting, hematemesis, hematochezia, melena.. Cardiovascular: HTN Pulmonary: COPD Psych: Addictions Endocrine: Diabetes Dermatology: Cellulitis Smoke: 1 pack per day ALCOHOL: none Drugs: Other (Methamphetamines) Lives: Other Review of Systems Constitutional: Yes: Fever, Chills, Malaise; No: Sweats, Weakness, Other Eyes: No: Pain, Vision change, Conjunctivae inflammation, Eyelid inflammation, Other, Redness ENT: No: Ear pain, Ear discharge, Nose pain, Nose discharge, Nose congestion, Mouth pain, Mouth swelling, Throat pain, Throat swelling, Other Respiratory: No: Cough, Dry, Shortness of breath, SOB with excertion, Wheezing, Hemoptysis, Pleuritic Pain, Sputum, Wheezing, Other Cardiovascular: Edema; No: Chest Pain, Palpitations, Orthopnea, Paroxysmal Noc. Dyspnea, Lt Headedness, Other Gastrointestinal: Abdominal Pain; No: Nausea, Vomiting, Diarrhea, Constipation, Melena, Hematochezia, Other Genitourinary: No Dysuria, No Frequency, No Incontinence, No Hematuria, No Retention, No Other Musculoskeletal: No: other, neck pain, shoulder pain, arm pain, back pain, hand pain, leg pain, foot pain Skin: Other; No: Rash, Lesions, Jaundice, Bruising Neurological: No: Weakness, Numbness, Incoordination, Change in speech, Confusion, Seizures, Other Allergies: Coded Allergies: NO KNOWN ALLERGIES (Unverified , 04/14/23) Medications Current Medications Medications Dose Ordered Sig/Reina Route Start Time Stop Time Status Last Admin Dose Admin Sodium Chloride 1,000 ml @ 100 mls/hr Q10H IV 05/17/25 23:30 05/18/25 09:29 Cefepime HCl 50 ml @ 12.5 mls/hr Q8HR IV 05/18/25 06:00 Albuterol 2.5 mg Q4HR NEB 05/18/25 02:00 Ipratropium [place] 0.5 mg Q4HR NEB 05/18/25 02:00 Vancomycin HCl 0 ml @ 0 mls/hr PER PHARMACY IV 05/17/25 23:30 UNV Morphine Sulfate 2 mg Q4HPRN PRN IV 05/17/25 23:30 Ondansetron HCl 4 mg Q4HP PRN IV 05/17/25 23:30 Diagnostic Test (Pha) 1 strip Q6HR 05/18/25 00:00 Insulin Human Regular Q6HR SC 05/18/25 00:00 Dextrose 50 ml UD PRN IV 05/17/25 23:30 Acetaminophen 650 mg Q6HP PRN PO 05/17/25 23:45 Docusate Sodium 100 mg BIDPRN PRN PO 05/18/25 00:30 Enoxaparin Sodium 40 mg DAILY SC 05/18/25 10:00 UNV Nitroglycerin 0.4 mg Q5MINP PRN SL 05/18/25 00:30 Morphine Sulfate 2 mg Q30M PRN IV 05/18/25 00:30 UNV Exam Vital Signs Vital Signs Date Time Temp Pulse Resp B/P (MAP) Pulse Ox O2 Delivery O2 Flow Rate FiO2 05/17/25 23:37 100.8 111 18 108/68 94 3.0 100.8 05/17/25 19:36 Nasal Cannula* 28 General Appearance: Alert, Oriented X3, Cooperative, moderate distress, Other (Ill-appearing) HEENT: Atraumatic, PERRLA, EOMI Respiratory: Other (Diminished air exchange) Cardiovascular: Regular rate, Normal S1, Normal S2 Abdominal: Soft, Other (Incarcerated umbilical hernia) Extremities: Other (Mildly edematous secondary to venous stasis with stasis dermatitis) Neuro: Normal speech, Strength at 5/5 X4 ext Psych/Mental Status: Mental status NL, Mood NL Labs/Xrays Labs Test 05/17/25 20:25 05/17/25 19:18 05/17/25 18:29 05/17/25 17:07 Range/Units Troponin I High Sensitivity 15 </=54 ng/L Lactic Acid Level 2.0 0.4-2.0 mmol/L Urine Color Light-yellow Yellow Urine Clarity Clear Clear Urine pH 6.5 5.0-9.0 Urine Specific [place] 1.014 1.001-1.035 Urine Protein Negative Negative Urine Ketones Negative Negative Urine Blood Negative Negative /uL Urine Nitrite Negative Negative Urine Bilirubin Negative Negative Urine Urobilinogen Normal Negative mg/dL Urine Leukocyte Esterase Negative Negative /uL Urine RBC 1 0 - 3 /hpf Urine Microscopic WBC 0-3 /HPF Urine Squamous Epithelial Cells None seen <5 /hpf Urine Bacteria None seen None Seen /hpf Urine Glucose Trace Normal mg/dL Urine Opiates Screen Neg NEGATIVE Urine Fentanyl Screen Neg NEGATIVE Urine Barbiturates Screen Neg NEGATIVE Urine Phencyclidine Screen Neg NEGATIVE Urine Amphetamines Screen Pos NEGATIVE Urine Benzodiazepines Screen Neg NEGATIVE Urine Cocaine Screen Neg NEGATIVE Urine Cannabinoids Screen Neg NEGATIVE White Blood Count 10.6 4.4-10.8 10^3/uL Red Blood Count 4.44 L 4.5-5.90 10^6/uL Hemoglobin 13.8 13.5-17.5 g/dL Hematocrit 41.0 41.0-53.0 % Mean Corpuscular Volume 92.4 80.0-100.0 fL Mean Corpuscular Hemoglobin 31.1 28.0-32.0 pg Mean Corpuscular Hemoglobin Concent 33.7 32.0-36.0 g/dL Red Cell Distribution Width 14.0 11.8-14.3 % Platelet Count 190 140-450 10^3/uL Mean Platelet Volume 9.3 6.9-10.8 fL Neutrophils (%) (Auto) 91.1 H 37.0-80.0 % Lymphocytes (%) (Auto) 5.7 L 10.0-50.0 % Monocytes (%) (Auto) 1.6 0.0-12.0 % Eosinophils (%) (Auto) 1.2 0.0-7.0 % Basophils (%) (Auto) 0.4 0.0-2.0 % Neutrophils # (Auto) 9.7 H 1.6-8.6 10 ^3/uL Lymphocytes # (Auto) 0.6 0.4-5.4 10 ^3/uL Monocytes # (Auto) 0.2 0-1.3 10 ^3/uL Eosinophils # (Auto) 0.1 0-0.8 10 ^3/uL Basophils # (Auto) 0 0-0.2 10 ^3/uL Nucleated Red Blood Cells 0.0 % Prothrombin Time 10.8 9.3-11.8 sec Prothrombin Time INR 1.02 0.9-1.15 Activated Partial Thromboplast Time 25.9 24.5-34.5 SEC Sodium Level 138 136-145 mmol/L Potassium Level 4.0 3.5-5.1 mmol/L Chloride Level 104 98-107 mmol/L Carbon Dioxide Level 25 20-31 mmol/L Anion Gap 9 5-15 Blood Urea Nitrogen 11 9-23 mg/dL Creatinine 1.02 0.700-1.30 mg/dL Glomerular Filtration Rate Calc 80 >90 mL/min BUN/Creatinine Ratio 10.8 10.0-20.0 Serum Glucose 172 H 74-106 mg/dL Calcium Level 9.2 8.7-10.4 mg/dL Total Bilirubin 0.3 0.2-1.0 mg/dL Aspartate Amino Transferase (AST) 21 13-40 U/L Alanine Aminotransferase (ALT) 18 7-40 U/L Alkaline Phosphatase 83 46-116 U/L B-Type Natriuretic Peptide 73.73 0-100 pg/mL Total Protein 7.6 5.7-8.2 g/dL Albumin 3.8 3.2-4.8 g/dL SEPSIS Sepsis Screen Date sepsis recognized/suspect: May 17, 2025 Time Sepsis recognized/suspect: 1945 Recent Procedure: No On Antibiotic Therapy: Yes Respiratory Rate >20: No Heart Rate >90: Yes Temp<36 C (96.8 F) or >38.3 C: Yes SBP <90 or MAP <65 mmHG: No New Acute Mental Status Change: No Is the patient on CPAP, BIPAP,: No Physician Orders * Surgical Consult (05/17/25 ) Ct Ab Pel With Iv Con Only (05/17/25 19:13) *Consult (05/17/25 23:21) Sodium Chloride 0.9% (05/17/25 23:30) Cefepime 1gm/50ml (Maxipime 1gm/50ml) (05/18/25 06:00) Albuterol Medneb (Ventolin Medneb) (05/18/25 02:00) Ipratropium Medneb (Atrovent Medneb) (05/18/25 02:00) Vancomycin Per Pharmacy (05/17/25 23:30) * Infectious Jeremie- Dr. Graciela Hanna (05/17/25 23:21) Morphine Sulfate Injection (05/17/25 23:30) Ondansetron Hcl (Zofran) (05/17/25 23:30) Glucose Blood (Accu-Chek Comfort Curve T (05/18/25 00:00) Insulin R (Human) (Insulin R) (05/18/25 00:00) Dextrose 50% Syringe (05/17/25 23:30) Acetaminophen Solution Oral (Tylenol Nancy (05/17/25 23:45) Lactic Acid W/ Reflex Order (05/18/25 06:00) Lactic Acid W/ Reflex Order (05/18/25 12:00) * Cardiology Consult (05/17/25 23:43) Admit (05/18/25 00:22) Code Status (05/18/25 00:22) Vital Signs .PER UNIT PROTOCOL (05/18/25 00:22) Review Orders With Adm. (05/18/25 00:22) Encourage Activity As Tolerate (05/18/25 00:22) Docusate Sodium Capsule (Colace Capsule) (05/18/25 00:30) Notify Md Of Changes From Base (05/18/25 00:22) Advance Directive (05/18/25 00:22) Echo 2d Mode Cardiac Dop (05/18/25 00:22) Basic Metabolic Panel (05/18/25 05:00) Basic Metabolic Panel (05/19/25 05:00) Basic Metabolic Panel (05/20/25 05:00) Basic Metabolic Panel (05/21/25 05:00) Basic Metabolic Panel (05/22/25 05:00) Basic Metabolic Panel (05/23/25 05:00) Complete Blood Count (05/18/25 05:00) Complete Blood Count (05/19/25 05:00) Complete Blood Count (05/20/25 05:00) Complete Blood Count (05/21/25 05:00) Complete Blood Count (05/22/25 05:00) Complete Blood Count (05/23/25 05:00) Patient Condition (05/18/25 00:22) Allergies (05/18/25 00:22) Enoxaparin Sodium (Lovenox) (05/18/25 10:00) Sequential Compression Device (05/18/25 ) Nitroglycerin Sublingual (Ntrostat Subli (05/18/25 00:30) Morphine Sulfate Injection (05/18/25 00:30) Stat Ekg For Chest Pain (05/18/25 00:22) Notify Md Of Changes From Base (05/18/25 00:22) Bandage Maker For 24 Hours (05/18/25 00:22) Emergency Dysrhythmia Protocol (05/18/25:) Rhythm Strips Once Every Shift (05/18/25 00:22) Oxygen By Nasal Cannula (05/18/25 00:22) Npo Except For Medications (05/18/25 00:22) Vital Signs Date Time Temp Pulse Resp B/P (MAP) Pulse Ox O2 Delivery O2 Flow Rate FiO2 05/17/25 23:37 100.8 111 18 108/68 94 3.0 100.8 05/17/25 21:55 88/58 (68) 05/17/25 19:36 102 20 94 Nasal Cannula* 2 28 05/17/25 19:36 100.8 105 20 108/68 (81) 93 100.8 05/17/25 19:05 104 24 105/48 (67) 94 05/17/25 18:57 100.8 100.8 05/17/25 18:30 108/68 05/17/25 18:30 108 23 97/42 (60) 94 05/17/25 17:36 18 Nasal Cannula* 3 32 05/17/25 17:02 104 20 98 Nasal Cannula* 3 32 05/17/25 17:02 103.0 104 20 116/52 (73) 98 103.0 Laboratory Tests Test 05/17/25 17:07 05/17/25 19:18 Lactic Acid Level 2.1 mmol/L (0.4-2.0) *H 2.0 mmol/L (0.4-2.0) White Blood Count 10.6 10^3/uL (4.4-10.8) Medications Medications Dose Ordered Sig/Reina Route Start Time Stop Time Status Last Admin Dose Admin Acetaminophen 1,000 mg ONCE ONCE IV 05/17/25 17:30 05/17/25 17:31 DC 05/17/25 18:02 1,000 MG Albuterol 2.5 mg ONCE ONCE NEB 05/17/25 17:30 05/17/25 17:31 DC 05/17/25 17:36 2.5 MG Cefepime HCl 50 ml @ 50 mls/hr ONCE ONCE IV 05/17/25 18:00 05/17/25 18:59 DC 05/17/25 18:06 50 MLS/HR Furosemide 40 mg ONCE ONCE IV 05/17/25 18:30 05/17/25 18:31 DC 05/17/25 18:30 40 MG Ipratropium [place] 1 mg ONCE ONCE NEB 05/17/25 17:30 05/17/25 17:31 DC 05/17/25 17:36 1 MG Lactated Ringer's 2,250 ml @ 2,250 mls/hr ONCE ONCE IV 05/17/25 16:45 05/17/25 17:44 DC 05/17/25 18:00 2,250 MLS/HR Methylprednisolone Sodium Succinate 125 mg ONCE ONCE IV 05/17/25 17:30 05/17/25 17:31 DC 05/17/25 18:01 125 MG Vancomycin HCl 250 ml @ 250 mls/hr ONCE ONCE IV 05/17/25 16:45 05/17/25 17:44 DC 05/17/25 19:06 250 MLS/HR Assessment/Plan Assessment/Plan Sepsis Acute respiratory failure with hypoxia Umbilical hernia Type 2 DM CHF r/o Chronic methamphetamine abuse Chronic nicotine dependence Plan Admit telemetry Infectious disease consult. Blood cultures pending. Broad-spectrum IV ABX. Pulmonology consult. Bronchodilators. As needed supplemental O2 to maintain oxygen saturation greater than 93%. Incentive spirometry. General surgeon consult per the emergency department. NPO diet. Cardiology consult. Echocardiogram. Blood glucose checks with regular insulin sliding scale coverage IVF Social service consult GI ppx protonix / DVT ppx lovenox Plan discussed with: Patient My Orders Orders - CHEN VALDIVIA NP Procedure Category Date Status Time *Consult CONS 05/17/25 Transmitted 23:21 Sodium Chloride 0.9% PHA 05/17/25 In Process 23:30 Cefepime 1gm/50ml PHA 05/18/25 In Process (Maxipime 1gm/50ml) 06:00 Albuterol Medneb PHA 05/18/25 In Process (Ventolin Medneb) 02:00 Ipratropium Medneb PHA 05/18/25 In Process (Atrovent Medneb) 02:00 Vancomycin Per PHA 05/17/25 Pending Pharmacy 23:30 * Infectious [facility]- CONS 05/17/25 Transmitted Graciela Hanna 23:21 Morphine Sulfate PHA 05/17/25 In Process Injection 23:30 Ondansetron Hcl PHA 05/17/25 In Process (Zofran) 23:30 Glucose Blood PHA 05/18/25 In Process (Accu-Chek Comfort 00:00 Insulin R (Human) PHA 05/18/25 In Process (Insulin R) 00:00 Dextrose 50% Syringe PHA 05/17/25 In Process 23:30 Acetaminophen PHA 05/17/25 In Process Solution Oral 23:45 Lactic Acid W/ Reflex LAB 05/18/25 Logged Order 06:00 Lactic Acid W/ Reflex LAB 05/18/25 Logged Order 12:00 * Cardiology Consult CONS 05/17/25 Transmitted 23:43 Admit ADMIT 05/18/25 Transmitted 00:22 Code Status CODE 05/18/25 Transmitted 00:22 Vital Signs CARMEN 05/18/25 In Process 00:22 Review Orders With CARMEN 05/18/25 In Process Adm. 00:22 Encourage Activity As CARMEN 05/18/25 In Process Tolerate 00:22 Docusate Sodium PHA 05/18/25 In Process Capsule (Colace 00:30 Notify Of Changes CARMEN 05/18/25 In Process From Base 00:22 Advance Directive CARMEN 05/18/25 In Process 00:22 Echo 2d Mode Cardiac US 05/18/25 Logged DOP 00:22 Basic Metabolic Panel LAB 05/18/25 Logged 05:00 Basic Metabolic Panel LAB 05/19/25 Verified 05:00 Basic Metabolic Panel LAB 05/20/25 Verified 05:00 Basic Metabolic Panel LAB 05/21/25 Verified 05:00 Basic Metabolic Panel LAB 05/22/25 Verified 05:00 Basic Metabolic Panel LAB 05/23/25 Verified 05:00 Complete Blood Count LAB 05/18/25 Logged 05:00 Complete Blood Count LAB 05/19/25 Verified 05:00 Complete Blood Count LAB 05/20/25 Verified 05:00 Complete Blood Count LAB 05/21/25 Verified 05:00 Complete Blood Count LAB 05/22/25 Verified 05:00 Complete Blood Count LAB 05/23/25 Verified 05:00 Patient Condition ORDERS 05/18/25 Transmitted 00:22 Allergies CARMEN 05/18/25 In Process 00:22 Enoxaparin Sodium PHA 05/18/25 Logged (Lovenox) 10:00 Sequential CARMEN 05/18/25 In Process Compression Device Nitroglycerin PHA 05/18/25 In Process Sublingual (Ntrostat 00:30 Morphine Sulfate PHA 05/18/25 Logged Injection 00:30 Stat Ekg For Chest CARMEN 05/18/25 In Process Pain 00:22 Notify Of Changes [facility] 05/18/25 In Process From Base 00:22 Bandage Maker For [facility] 05/18/25 In Process 24 Hours 00:22 Emergency Dysrhythmia [facility] 05/18/25 In Process Protocol 00:22 Rhythm Strips Once [facility] 05/18/25 In Process Every Shift 00:22 Oxygen By Nasal RT 05/18/25 Transmitted Cannula 00:22 Npo Except For CARMEN 05/18/25 In Process Medications 00:22 Date of Service: May 18, 2025 Billing Provider: HARITHA ANDINO MD Common Visit Codes: NOT BILLABLE HARITHA ANDINO MD 05/18/25 1627: Review of Systems Allergies: Coded Allergies: NO KNOWN ALLERGIES (Unverified , 04/14/23) CHEN VALDIVIA NP May 18, 2025 00:47 HARITHA ANDINO MD May 18, 2025 16:27
[2025-05-18] MEDS ORDERED: MORPHINE SULFATE 4 MG/ML SYR/VIAL IV PRN (01:00)
[2025-05-18] MEDS: IPRATROPIUM BROM 0.5 MG/2.5ML INH SOL NEB SCH (01:49)
[2025-05-18] MEDS: ALBUTEROL SULF 2.5 MG/0.5ML(0.5%) NEB SOLN NEB SCH (01:49)
[2025-05-18] MEDS ORDERED: IBUP-1455 PO (03:05)
[2025-05-18] MEDS ORDERED: POTA-36 PO (03:05)
[2025-05-18] MEDS ORDERED: ALBU108A5 INH (03:05)
[2025-05-18] MEDS: CEFEPIME 1GM/50ML 50 ML IV SCH (05:38)
[2025-05-18] MEDS: ENOXAPARIN SOD 40 MG/0.4 ML SYRINGE SC SCH (10:00)
--- NOTE | 2025-05-18 10:54 | DVHINCON2 ---
RASHIDA MILLER [facility] 05/18/25 1054: Date Seen: May 18, 2025 Referring Physician COLLINS Pablo Reason for Consultation Hypotension and CHF History of Present Illness This is a 70-year-old man who presented to the emergency room via EMS with a chief complaint of abdominal pain. The patient is a very poor historian, information obtained from records which indicate the patient was lifting heavy rocks upon he developed umbilical abdominal pain describes a sharp sensation and associated with pyrexia, bilateral lower extremity edema, and shortness of breath with O2 saturations at 86% on room air. The patient underwent a 12 lead electrocardiogram revealing a sinus tachycardia rhythm at 109 bpm. Serial troponin levels are negative. BNP is 73 ng/mL. Significant medical history includes diabetes mellitus type 2, chronic right lower extremity cellulitis, chronic venous stasis, COPD with active nicotine dependence, chronic methamphetamine abuse, medical noncompliance, and obesity. Past Medical History Past medical history reviewed. No other significant than mentioned above. Past Surgical History Appendectomy Family History: Patient reports no known family medical history. Family History Unable to obtain family history at this time. Social History UDS positive for methamphetamines. Per records, active nicotine dependence. Allergies: Coded Allergies: NO KNOWN ALLERGIES (Unverified , 04/14/23) Home Meds Reported Medications Potassium Chloride (POTASSIUM CHLORIDE CR) 10 Meq Tb, 20 MEQ PO DAILY, TAB 05/18/25 Ibuprofen Micronized (Ibuprofen) 800 Mg Tab, TAB PO 05/18/25 Albuterol Sulfate (Albuterol Sulfate Hfa) 108 Mcg/Act Aer, INH 05/18/25 Home Meds Home medications reviewed. Current Medications Current Medications Medications (Trade) Dose Ordered Sig/Reina Route PRN Reason Start Time Stop Time Status Last Admin Sodium Chloride 1,000 ml @ 100 mls/hr Q10H IV 05/17/25 23:30 05/18/25 09:29 DC 05/17/25 23:30 Cefepime HCl 50 ml @ 12.5 mls/hr Q8HR IV 05/18/25 06:00 05/18/25 05:38 Albuterol (Ventolin Medneb) 2.5 mg Q4HR NEB 05/18/25 02:00 05/18/25 10:03 Ipratropium [place] (Atrovent Medneb) 0.5 mg Q4HR NEB 05/18/25 02:00 05/18/25 10:03 Vancomycin HCl 0 ml @ 0 mls/hr PER PHARMACY IV 05/17/25 23:30 Morphine Sulfate 2 mg Q4HPRN PRN IV SEVERE PAIN (7-10 PAIN SCALE) 05/17/25 23:30 Ondansetron HCl (Zofran) 4 mg Q4HP PRN IV NAUSEA / VOMITING 05/17/25 23:30 Diagnostic Test (Pha) (Accu-Chek Comfort Curve T) 1 strip Q6HR 05/18/25 00:00 05/18/25 05:40 Insulin Human Regular (InsuLIN R) Q6HR SC 05/18/25 00:00 05/18/25 00:00 Dextrose 50 ml UD PRN IV Blood Sugar LESS THAN 60 05/17/25 23:30 Acetaminophen (Tylenol Solution Oral) 650 mg Q6HP PRN PO PAIN SCALE 1-3 OR TEMP>100.4 05/17/25 23:45 Docusate Sodium (Colace Capsule) 100 mg BIDPRN PRN PO FOR CONSTIPATION 05/18/25 00:30 Enoxaparin Sodium (Lovenox) 40 mg DAILY SC 05/18/25 10:00 Nitroglycerin (Ntrostat Sublingual) 0.4 mg Q5MINP PRN SL FOR CHEST PAIN 05/18/25 00:30 Morphine Sulfate 2 mg Q30M PRN IV FOR CHEST PAIN 05/18/25 01:00 Review of Systems Constitutional: No symptom reported Ears, Nose, & Throat: No symptom reported Eyes: No symptom reported Neurological: No symptoms reported Pulmonary/Respiratory: No symptom reported Cardiovascular: No symptom reported Gastrointestinal: Abdominal pain Genitourinary: No symptom reported Musculoskeletal: No symptom reported Skin: No symptom reported Psychiatric: No symptom reported Endocrine: No symptom reported Hemotologic/Lymphatic: No symptom reported Vital Signs Vital Signs Date Time Temp Pulse Resp B/P (MAP) Pulse Ox O2 Delivery O2 Flow Rate FiO2 05/18/25 10:13 90 24 96 05/18/25 06:00 Simple Mask* 6 50 05/18/25 05:00 104/71 (82) 05/18/25 02:33 99.1 99.1 Physical Exam General Appearance: Somewhat withdrawn. Somnolent. Obese. In mild acute respiratory distress Head Exam: Normal inspection Neck Exam: Normal inspection. Non-tender. Normal alignment Pulmonary/Respiratory: Chest non-tender. Diminished bilateral breath sounds. O2 via Oxymizer at 8 LPM Cardiovascular/Chest: Regular rate and rhythm. S1, S2. NSR. No murmurs. No JVD. Peripheral Pulses: 2+ Radial (R). 2+ Radial (L). 2+ Pedal (R). 2+ Pedal (L) Abdominal Exam: Normal bowel sounds. Protruding umbilical mass Ankle Exam: Right ankle edema Lower extremities: Right lower extremity edema, nonpitting, erythema present, warm to touch Neuro/Mental Status: Somewhat withdrawn. Somnolent Thoughts/Psych: Unable to assess secondary to above Appearance: In mild acute respiratory distress Skin Exam: Erythema to BLE, R>L Labs/Diagnostic Data Labs Test 05/18/25 05:36 05/17/25 20:25 05/17/25 19:18 05/17/25 18:29 Range/Units POC Glucose 159 H 70-106 mg/dl Troponin I High Sensitivity 15 </=54 ng/L Lactic Acid Level 2.0 0.4-2.0 mmol/L Urine Color Light-yellow Yellow Urine Clarity Clear Clear Urine pH 6.5 5.0-9.0 Urine Specific [place] 1.014 1.001-1.035 Urine Protein Negative Negative Urine Ketones Negative Negative Urine Blood Negative Negative /uL Urine Nitrite Negative Negative Urine Bilirubin Negative Negative Urine Urobilinogen Normal Negative mg/dL Urine Leukocyte Esterase Negative Negative /uL Urine RBC 1 0 - 3 /hpf Urine Microscopic WBC 0-3 /HPF Urine Squamous Epithelial Cells None seen <5 /hpf Urine Bacteria None seen None Seen /hpf Urine Glucose Trace Normal mg/dL Urine Opiates Screen Neg NEGATIVE Urine Fentanyl Screen Neg NEGATIVE Urine Barbiturates Screen Neg NEGATIVE Urine Phencyclidine Screen Neg NEGATIVE Urine Amphetamines Screen Pos NEGATIVE Urine Benzodiazepines Screen Neg NEGATIVE Urine Cocaine Screen Neg NEGATIVE Urine Cannabinoids Screen Neg NEGATIVE Test 05/17/25 17:07 Range/Units White Blood Count 10.6 4.4-10.8 10^3/uL Red Blood Count 4.44 L 4.5-5.90 10^6/uL Hemoglobin 13.8 13.5-17.5 g/dL Hematocrit 41.0 41.0-53.0 % Mean Corpuscular Volume 92.4 80.0-100.0 fL Mean Corpuscular Hemoglobin 31.1 28.0-32.0 pg Mean Corpuscular Hemoglobin Concent 33.7 32.0-36.0 g/dL Red Cell Distribution Width 14.0 11.8-14.3 % Platelet Count 190 140-450 10^3/uL Mean Platelet Volume 9.3 6.9-10.8 fL Neutrophils (%) (Auto) 91.1 H 37.0-80.0 % Lymphocytes (%) (Auto) 5.7 L 10.0-50.0 % Monocytes (%) (Auto) 1.6 0.0-12.0 % Eosinophils (%) (Auto) 1.2 0.0-7.0 % Basophils (%) (Auto) 0.4 0.0-2.0 % Neutrophils # (Auto) 9.7 H 1.6-8.6 10 ^3/uL Lymphocytes # (Auto) 0.6 0.4-5.4 10 ^3/uL Monocytes # (Auto) 0.2 0-1.3 10 ^3/uL Eosinophils # (Auto) 0.1 0-0.8 10 ^3/uL Basophils # (Auto) 0 0-0.2 10 ^3/uL Nucleated Red Blood Cells 0.0 % Prothrombin Time 10.8 9.3-11.8 sec Prothrombin Time INR 1.02 0.9-1.15 Activated Partial Thromboplast Time 25.9 24.5-34.5 SEC Sodium Level 138 136-145 mmol/L Potassium Level 4.0 3.5-5.1 mmol/L Chloride Level 104 98-107 mmol/L Carbon Dioxide Level 25 20-31 mmol/L Anion Gap 9 5-15 Blood Urea Nitrogen 11 9-23 mg/dL Creatinine 1.02 0.700-1.30 mg/dL Glomerular Filtration Rate Calc 80 >90 mL/min BUN/Creatinine Ratio 10.8 10.0-20.0 Serum Glucose 172 H 74-106 mg/dL Calcium Level 9.2 8.7-10.4 mg/dL Total Bilirubin 0.3 0.2-1.0 mg/dL Aspartate Amino Transferase (AST) 21 13-40 U/L Alanine Aminotransferase (ALT) 18 7-40 U/L Alkaline Phosphatase 83 46-116 U/L B-Type Natriuretic Peptide 73.73 0-100 pg/mL Total Protein 7.6 5.7-8.2 g/dL Albumin 3.8 3.2-4.8 g/dL Microbiology Date/Time Source Procedure Growth Status 05/17/25 17:07 Blood Blood Culture - Preliminary Resulted Assessment Acute on chronic hypoxic respiratory failure COPD with nicotine dependence Right lower extremity cellulitis Rule out structural heart disease Acute on chronic methamphetamine intoxication Medical noncompliance Obesity Plan/Recommendation (Dr. Torres) We will continue further cardiac evaluation with a transthoracic echocardiogram to rule out structural heart disease. Possible acute diastolic heart failure, initiate preload reduction with Lasix therapy. Continue ABX therapy and O2 supplementation per primary care team. Consider ABG and sleep study. Agree with DVT/VTE prophylaxis. In the setting of an unremarkable echocardiogram, there is no further cardiac workup indicated at this time. Thank you for allowing us to participate in this patient's care. Please call if you have any questions or concerns. This medical document was created using an electronic medical record system with voice recognition software and computerized dictation system. Although this document has been carefully reviewed, there might still be some phonetic and typographical errors. Occasional wrong-word or ``sound-alike substitutions may have occurred due to the inherent limitations of voice recognition software. These areas are purely typographical due to imperfections of the software programs and do not reflect any compromise in the patient's medical care. Please read the chart carefully and recognize, using context, where these substitutions have occurred. Plan discussed with: Patient, Other NYHA Physical activity limitations: NA Date of Service: May 18, 2025 Billing Provider: RASHIDA MILLER [facility] Cardiology Common Codes: 88427-BUSPBIX INP/OBS CARE (High) SHANNAN TORRES MD 05/18/25 1801: Date Seen: May 18, 2025 Referring Physician Patient was seen and examined at bedside and plan was formulated with Kimberly Miller cardiology LEGAL REFEREE as above. Patient is laying relatively flat with no orthopnea or PND. Denies having chest pain chest discomfort or chest pressure. On physical exam he does not have inspiratory crackles. He has bilateral lower extremity edema however it is known that he has venous stasis as well as bilateral lower extremity cellulitis. Patient likely has GARY. He probably has certain degree of diastolic dysfu nction. He may benefit from daily diuretics p.o. for volume management. Shannan Torres MD Interventional cardiology Family History: Patient reports no known family medical history. Allergies: Coded Allergies: NO KNOWN ALLERGIES (Unverified , 04/14/23) Home Meds Reported Medications Potassium Chloride (POTASSIUM CHLORIDE CR) 10 Meq Tb, 20 MEQ PO DAILY, TAB 05/18/25 Ibuprofen Micronized (Ibuprofen) 800 Mg Tab, TAB PO 05/18/25 Albuterol Sulfate (Albuterol Sulfate Hfa) 108 Mcg/Act Aer, INH 05/18/25 RASHIDA MILLER May 18, 2025 10:54 SHANNAN TORRES MD May 18, 2025 18:01
[2025-05-18 11:08] LABS: Hematocrit 46.7 % (41.0-53.0); Hemoglobin 15.3 g/dL (13.5-17.5); Mean Corpuscular Hemoglobin 31.3 pg (28.0-32.0); Mean Corpuscular Volume 95.3 fL (80.0-100.0)
[2025-05-18 11:14] LABS: Chloride 102 mmol/L (98-107); Potassium 4.9 mmol/L (3.5-5.1); Sodium 137 mmol/L (136-145)
[2025-05-18 11:15] LABS: Anion Gap 10 (5-15); Carbon Dioxide 25 mmol/L (20-31)
[2025-05-18 11:16] LABS: Calcium 8.8 mg/dL (8.7-10.4)
[2025-05-18 11:21] LABS: BUN/Creatinine Ratio 18.4 (10.0-20.0); Blood Urea Nitrogen 18 mg/dL (9-23)
[2025-05-18 11:27] LABS: Glucose 152 mg/dL (74-106)
[2025-05-18 11:35] LABS: Triglycerides 65 mg/dL (< 150)
[2025-05-18 11:37] LABS: Cholesterol 108 mg/dL (< 200); HDL Cholesterol 54 mg/dL (40-59)
[2025-05-18 11:43] LABS: Lactic Acid w/Reflex 2.9 mmol/L (0.4-2.0)
[2025-05-18] MEDS: FUROSEMIDE 20 MG/2 ML VIAL IV ONE (12:18)
[2025-05-18 12:21] LABS: Total Cells Counted 100.0 (100)
[2025-05-18] MEDS: VANCOMYCIN 1GM/250ML KIT 250 ML IV SCH (12:36)
--- NOTE | 2025-05-18 13:51 | DVHINCON2 ---
Date of service: May 18, 2025 History of Present Illness 70-year-old male with a history of multiple medical problems including chronic methamphetamine use with COPD and diabetes admitted secondary to sharp abdominal pain. Currently patient denies any abdominal pain. Patient also has a long history of incarcerated umbilical hernia. Past Medical History Diabetes. Chronic venous stasis. COPD. Past Surgical History No recent surgeries. Family History: Patient reports no known family medical history. Family History Noncontributory Social History Positive for methamphetamine use. Also smokes one pack a day. Denies alcohol. Allergies: Coded Allergies: NO KNOWN ALLERGIES (Unverified , 04/14/23) Home Meds Reported Medications Potassium Chloride (POTASSIUM CHLORIDE CR) 10 Meq Tb, 20 MEQ PO DAILY, TAB 05/18/25 Ibuprofen Micronized (Ibuprofen) 800 Mg Tab, TAB PO 05/18/25 Albuterol Sulfate (Albuterol Sulfate Hfa) 108 Mcg/Act Aer, INH 05/18/25 Current Medications Current Medications Medications (Trade) Dose Ordered Sig/Reina Route PRN Reason Start Time Stop Time Status Last Admin Sodium Chloride 1,000 ml @ 100 mls/hr Q10H IV 05/17/25 23:30 05/18/25 09:29 DC 05/17/25 23:30 Cefepime HCl 50 ml @ 12.5 mls/hr Q8HR IV 05/18/25 06:00 05/18/25 05:38 Albuterol (Ventolin Medneb) 2.5 mg Q4HR NEB 05/18/25 02:00 05/18/25 10:03 Ipratropium [place] (Atrovent Medneb) 0.5 mg Q4HR NEB 05/18/25 02:00 05/18/25 10:03 Vancomycin HCl 0 ml @ 0 mls/hr PER PHARMACY IV 05/17/25 23:30 Morphine Sulfate 2 mg Q4HPRN PRN IV SEVERE PAIN (7-10 PAIN SCALE) 05/17/25 23:30 Ondansetron HCl (Zofran) 4 mg Q4HP PRN IV NAUSEA / VOMITING 05/17/25 23:30 Diagnostic Test (Pha) (Accu-Chek Comfort Curve T) 1 strip Q6HR 05/18/25 00:00 05/18/25 11:59 Insulin Human Regular (InsuLIN R) Q6HR SC 05/18/25 00:00 05/18/25 00:00 Dextrose 50 ml UD PRN IV Blood Sugar LESS THAN 60 05/17/25 23:30 Acetaminophen (Tylenol Solution Oral) 650 mg Q6HP PRN PO PAIN SCALE 1-3 OR TEMP>100.4 05/17/25 23:45 Docusate Sodium (Colace Capsule) 100 mg BIDPRN PRN PO FOR CONSTIPATION 05/18/25 00:30 Enoxaparin Sodium (Lovenox) 40 mg DAILY SC 05/18/25 10:00 Nitroglycerin (Ntrostat Sublingual) 0.4 mg Q5MINP PRN SL FOR CHEST PAIN 05/18/25 00:30 Morphine Sulfate 2 mg Q30M PRN IV FOR CHEST PAIN 05/18/25 01:00 Furosemide (Lasix Injection) 20 mg DAILY IV 05/19/25 10:00 Vancomycin HCl 250 ml @ 200 mls/hr Q8H IV 05/18/25 13:00 05/18/25 12:36 Vital Signs Vital Signs Date Time Temp Pulse Resp B/P (MAP) Pulse Ox O2 Delivery O2 Flow Rate FiO2 05/18/25 12:18 117/54 05/18/25 10:13 90 24 96 05/18/25 09:00 98.3 98.3 05/18/25 08:00 Simple Mask* 6 50 Physical Exam GEN: Age-appropriate male currently getting breathing treatments. In no acute distress. HEENT: Normocephalic atraumatic. Moist mucous membranes. Anicteric sclerae. CV: RRR Respiratory: Coarse breath sounds ABD: Obese abdomen with an incarcerated umbilical hernia that is soft and nontender. No signs of erythema. CT of the abdomen and pelvis: Fat containing periumbilical hernia without herniated bowel or significant inflammatory changes. Labs/Diagnostic Data Labs Test 05/18/25 11:56 05/18/25 10:35 05/17/25 20:25 05/17/25 18:29 Range/Units POC Glucose 150 H 70-106 mg/dl White Blood Count 26.5 #H 4.4-10.8 10^3/uL Red Blood Count 4.89 4.5-5.90 10^6/uL Hemoglobin 15.3 13.5-17.5 g/dL Hematocrit 46.7 # 41.0-53.0 % Mean Corpuscular Volume 95.3 80.0-100.0 fL Mean Corpuscular Hemoglobin 31.3 28.0-32.0 pg Mean Corpuscular Hemoglobin Concent 32.8 32.0-36.0 g/dL Red Cell Distribution Width 14.4 H 11.8-14.3 % Platelet Count 173 140-450 10^3/uL Mean Platelet Volume 9.0 6.9-10.8 fL Neutrophils (%) (Auto) 37.0-80.0 % Lymphocytes (%) (Auto) 10.0-50.0 % Monocytes (%) (Auto) 0.0-12.0 % Basophils (%) (Auto) 0.0-2.0 % Neutrophils # (Auto) 1.6-8.6 10 ^3/uL Lymphocytes # (Auto) 0.4-5.4 10 ^3/uL Monocytes # (Auto) 0-1.3 10 ^3/uL Differential Total Cells Counted 100.0 100 Neutrophils % (Manual) 85 H 37.0-80.0 Band Neutrophils % (Manual) 9 Lymphocytes % (Manual) 3 L 10.0-50.0 Monocytes % (Manual) 2 0-12 Eosinophils % (Manual) 1 0-7 Basophils % (Manual) 0 0.0-2.0 Metamyelocytes % (manual) 0 Myelocytes % (Manual) 0 Promyelocytes % (Manual) 0 Blast Cells % (Manual) 0 Reactive Lymphocytes 0 Platelet Estimate Adequate Sodium Level 137 136-145 mmol/L Potassium Level 4.9 3.5-5.1 mmol/L Chloride Level 102 98-107 mmol/L Carbon Dioxide Level 25 20-31 mmol/L Anion Gap 10 5-15 Blood Urea Nitrogen 18 9-23 mg/dL Creatinine 0.98 0.700-1.30 mg/dL Glomerular Filtration Rate Calc 84 >90 mL/min BUN/Creatinine Ratio 18.4 10.0-20.0 Serum Glucose 152 H 74-106 mg/dL Hemoglobin A1c 6.8 H <5.7 % A1C Lactic Acid Level 2.9 *H 0.4-2.0 mmol/L Calcium Level 8.8 8.7-10.4 mg/dL Triglycerides Level 65 < 150 mg/dL Cholesterol Level 108 < 200 mg/dL LDL Cholesterol 37 < 100 mg/dL HDL Cholesterol 54 40-59 mg/dL Thyroid Stimulating Hormone (TSH) 1.25 0.55-4.78 uIU/mL Random Vancomycin Level 7.1 5-10 ug/mL Troponin I High Sensitivity 15 </=54 ng/L Urine Color Light-yellow Yellow Urine Clarity Clear Clear Urine pH 6.5 5.0-9.0 Urine Specific [place] 1.014 1.001-1.035 Urine Protein Negative Negative Urine Ketones Negative Negative Urine Blood Negative Negative /uL Urine Nitrite Negative Negative Urine Bilirubin Negative Negative Urine Urobilinogen Normal Negative mg/dL Urine Leukocyte Esterase Negative Negative /uL Urine RBC 1 0 - 3 /hpf Urine Microscopic WBC 0-3 /HPF Urine Squamous Epithelial Cells None seen <5 /hpf Urine Bacteria None seen None Seen /hpf Urine Glucose Trace Normal mg/dL Urine Opiates Screen Neg NEGATIVE Urine Fentanyl Screen Neg NEGATIVE Urine Barbiturates Screen Neg NEGATIVE Urine Phencyclidine Screen Neg NEGATIVE Urine Amphetamines Screen Pos NEGATIVE Urine Benzodiazepines Screen Neg NEGATIVE Urine Cocaine Screen Neg NEGATIVE Urine Cannabinoids Screen Neg NEGATIVE Test 05/17/25 17:07 Range/Units Eosinophils (%) (Auto) 1.2 0.0-7.0 % Eosinophils # (Auto) 0.1 0-0.8 10 ^3/uL Basophils # (Auto) 0 0-0.2 10 ^3/uL Nucleated Red Blood Cells 0.0 % Prothrombin Time 10.8 9.3-11.8 sec Prothrombin Time INR 1.02 0.9-1.15 Activated Partial Thromboplast Time 25.9 24.5-34.5 SEC Total Bilirubin 0.3 0.2-1.0 mg/dL Aspartate Amino Transferase (AST) 21 13-40 U/L Alanine Aminotransferase (ALT) 18 7-40 U/L Alkaline Phosphatase 83 46-116 U/L B-Type Natriuretic Peptide 73.73 0-100 pg/mL Total Protein 7.6 5.7-8.2 g/dL Albumin 3.8 3.2-4.8 g/dL Microbiology Date/Time Source Procedure Growth Status 05/17/25 17:07 Blood Blood Culture - Preliminary Resulted Assessment 1. Incarcerated umbilical hernia without strangulation. Plan/Recommendation 1. No indication for acute surgical intervention for the hernia. Plan discussed with: Patient JUANA CRAWFORD MD May 18, 2025 13:51
[2025-05-18 17:51] LABS: Lactic Acid w/Reflex 3.7 mmol/L (0.4-2.0)
[2025-05-18] MEDS: SODIUM CHLORIDE 0.9% 1,000 ML IV ONE (18:32)
[2025-05-18 18:42] LABS: Base Excess -2.1 mmol/L (-2.0-3.0)
--- NOTE | 2025-05-18 18:54 | DVH ---
CHEST RADIOGRAPH INDICATION: hypoxia, respiratory distress TECHNIQUE: Single frontal view of the chest was obtained COMPARISON: XY CHEST PORTABLE on DOS: 05/17/25 FINDINGS: Lines and Tubes: None Lungs: [id number] bilateral congestion is noted. Pleura: No effusion. No pneumothorax. Cardiomediastinal contours: Heart size is mildly enlarged. Bones: No acute osseous abnormality. IMPRESSION: 1. [id number] bilateral congestion.
--- NOTE | 2025-05-18 22:35 | DVHPN2 ---
Progress Note - Dictate Date Seen: May 18, 2025 Medical Necessity Reason Pt with a Central, PICC or Fol: No Subjective Patient seen and examined at bedside. Remains on supplemental oxygen Overnight events reviewed. vital signs Vital Sign Date Time Temp Pulse Resp B/P (MAP) Pulse Ox O2 Delivery O2 Flow Rate FiO2 05/18/25 21:00 100.8 94 20 153/74 (100) 94 100.8 05/18/25 18:07 Simple Mask* 6 50 Total Intake and Output 05/17/25 05/17/25 05/18/25 15:00 23:00 07:00 Intake Total 1050 ml 0 ml Balance 1050 ml 0 ml medications Current Medications Medications Dose Ordered Sig/Reina Route Start Time Stop Time Status Last Admin Dose Admin Cefepime HCl 50 ml @ 12.5 mls/hr Q8HR IV 05/18/25 06:00 05/18/25 15:01 12.5 MLS/HR Albuterol 2.5 mg Q4HR NEB 05/18/25 02:00 05/18/25 22:11 2.5 MG Ipratropium [place] 0.5 mg Q4HR NEB 05/18/25 02:00 05/18/25 22:11 0.5 MG Vancomycin HCl 0 ml @ 0 mls/hr PER PHARMACY IV 05/17/25 23:30 Morphine Sulfate 2 mg Q4HPRN PRN IV 05/17/25 23:30 Ondansetron HCl 4 mg Q4HP PRN IV 05/17/25 23:30 Diagnostic Test (Pha) 1 strip Q6HR 05/18/25 00:00 05/18/25 18:02 1 STRIP Insulin Human Regular Q6HR SC 05/18/25 00:00 05/18/25 00:00 3 UNITS Dextrose 50 ml UD PRN IV 05/17/25 23:30 Acetaminophen 650 mg Q6HP PRN PO 05/17/25 23:45 Docusate Sodium 100 mg BIDPRN PRN PO 05/18/25 00:30 Enoxaparin Sodium 40 mg DAILY SC 05/18/25 10:00 Nitroglycerin 0.4 mg Q5MINP PRN SL 05/18/25 00:30 Morphine Sulfate 2 mg Q30M PRN IV 05/18/25 01:00 Furosemide 20 mg DAILY IV 05/19/25 10:00 Vancomycin HCl 250 ml @ 200 mls/hr Q8H IV 05/18/25 13:00 05/18/25 21:09 200 MLS/HR objective Gen.: Patient lying in bed in no apparent distress. On supplemental oxygen. Head: Normocephalic, atraumatic. Eyes: EOMI/PERRLA. Ears: Normal hearing. Normal anatomy. Neck/trachea: Trachea midline, supple. Nose: Normal external anatomy. Mouth: Moist mucous membranes. Chest: Decreased air entry bilaterally. No wheezing or rhonchi. Cardiovascular: Positive S1, positive S2. Regular rate and rhythm. Abdomen: Positive bowel sounds in all 4 quadrants. Soft, non-tender, non- distended. : Deferred. Rectal: Deferred. Skin: Warm, dry. Intact. Extremities: 2+ radial pulses bilaterally. No lower extremity edema. Neuro: Awake, alert, altered. No gross motor or sensory deficits. Cranial nerves II through XII intact. Gait not assessed. laboratory and microbiology Laboratory Tests 05/18/25 10:35 Test 05/18/25 10:35 Range/Units Serum Glucose 152 H 74-106 mg/dL Assessment/Plan Impression: Sepsis Acute hypoxic respiratory failure Dependence on supplemental O2 Type 2 diabetes mellitus Nicotine dependence Methamphetamine abuse Obesity Events: Remains on supplemental oxygen Currently on 10 LPM simple mask Taper O2 as tolerated Obtain STAT ABG and chest x-ray. Patient is altered. Continue bronchodilators Continue antibiotics Pain control Avoid oversedation Follow up Echo Follow up Cardiology recs. Continue diuresis with Lasix Monitor renal function Monitor electrolytes. Supplement as necessary. Potassium supplementation Maintain euvolemia Lovenox for DVT ppx Labs and imaging reviewed. Rest of plan as noted below. Plan: Supplemental oxygen Titrate to keep O2 sats above 92%. CXR on 05/17 demonstrates marginal cardiomegaly with bilateral perihilar vascular congestion. Findings of congestive failure versus infection. CT abdomen-pelvis on 05/17 reviewed, shows fat-containing periumbilical hernia without herniated bowel loops or significant inflammatory changes. Enlarged bilateral inguinal region lymph nodes with mild surrounding inflammatory changes on the right. These are presumably reactive. Continue bronchodilators. Continue antibiotics F/u cultures Follow up ID recs Follow up Echocardiogram Follow up Cardiology recs Accu-Cheks, ISS. Diurese with Lasix as tolerated Monitor renal function. Monitor electrolytes. Supplement as necessary. Monitor ins and outs. Recommend diet and lifestyle modifications for weight reduction Obesity complicates all care Smoking cessation discussed greater than 10 minutes. Counseled against substance use. DVT prophylaxis. Prognosis: Poor given patient's multiple co-morbidities. Condition: Critical Rest of plan per hospitalist and other consultants. A total of 35 minutes of critical care time was spent reviewing the patient record, examining the patient, making a diagnostic and therapeutic plan, discussing this plan with the medical personnel, following up on diagnostic studies and following the patient for clinical stability excluding any and all procedures. At least 50% of this time was spent in direct, [id number] contact. Thank you, COLLINS Pablo, for allowing me to participate in this patient's care. Further recommendations will depend on the patient's clinical course. Please do not hesitate to contact me if you have any questions or concerns. This medical document was created using an electronic medical record system with [employer] dictation system. Although these documentations are being carefully reviewed, there may still be some phonetic and typographical changes. The errors are purely typographical, due to imperfection on the software program, and do not reflect any compromise in the patient's medical care. Plan discussed with: Other (SHAWN Hernandes) Critical Care Time(min): 35 [facility] May 18, 2025 22:35
[2025-05-19] VITALS (25 sets, daily range): BP systolic 83–145; BP diastolic 50–94; PULSE 58–130; RESP 16–26; TEMP 97.5–101.2; O2SAT 92–99
[2025-05-19 09:58] LABS: Hematocrit 42.4 % (41.0-53.0); Hemoglobin 14.2 g/dL (13.5-17.5); Mean Corpuscular Hemoglobin 31.1 pg (28.0-32.0); Mean Corpuscular Volume 92.5 fL (80.0-100.0)
[2025-05-19 10:04] LABS: Chloride 99 mmol/L (98-107); Potassium 3.8 mmol/L (3.5-5.1)
[2025-05-19 10:05] LABS: Anion Gap 6 (5-15); Calcium 8.9 mg/dL (8.7-10.4); Carbon Dioxide 30 mmol/L (20-31)
[2025-05-19 10:08] LABS: Sodium 135 mmol/L (136-145)
[2025-05-19 10:10] LABS: BUN/Creatinine Ratio 15.2 (10.0-20.0); Blood Urea Nitrogen 14 mg/dL (9-23)
[2025-05-19 10:11] LABS: Magnesium 1.8 mg/dL (1.6-2.6)
[2025-05-19 10:16] LABS: Glucose 127 mg/dL (74-106)
--- NOTE | 2025-05-19 10:19 | ECG ---
[facility] Test Date: 2025-05-17 Test Time: 16:33:14 Pat Name: LUIS HUBBARD Department: [facility] ED Patient ID: [id number] Room: 0272T A Gender: M Cardiothoracic Icu Rn: pedro : 1955 Requested By: EMERGENCY EMERGENCY Order Number: [id number] Reading MD: Sergo Golden Measurements Intervals [place] Rate: 109 P: 81 MA: 202 QRS: -37 QRSD: 103 T: 44 QT: 335 QTc: 452 Interpretive Statements Sinus tachycardia Left axis deviation Abnormal R-wave progression, late transition Electronically Signed On 05-19-2025 15:26:37 PST by Sergo Golden Please click the below link to view image of tracing.
[2025-05-19] MEDS: FUROSEMIDE 20 MG/2 ML VIAL IV SCH (10:30)
[2025-05-19] MEDS ORDERED: HEPARIN DRIP/D5W 100UNITS/ML 250 ML IV SCH ×2 (11:45→12:15)
[2025-05-19] MEDS ORDERED: HEPARIN SODIUM (PORCINE) 5000 UNITS/ML 1ML VIAL IV ONE ×2 (11:45→12:45)
[2025-05-19] MEDS: METOPROLOL TARTRATE 1MG/1ML-5ML VIAL IV ONE ×3 (11:51→13:44)
[2025-05-19] MEDS: AMIODARONE BOLUS KIT 100 ML IV ONE ×2 (11:53→11:55)
[2025-05-19] MEDS: FUROSEMIDE 40 MG/4 ML VIAL ONE (11:56)
[2025-05-19] MEDS: FUROSEMIDE 40 MG/4 ML VIAL IV ONE (11:56)
[2025-05-19 11:57] LABS: Base Excess 1.2 mmol/L (-2.0-3.0)
[2025-05-19 12:26] LABS: Total Cells Counted 100.0 (100)
[2025-05-19] MEDS: POTASSIUM CHL 20 Meq TABLET PO ONE (12:54)
[2025-05-19] MEDS: DIGOXIN (250MCG/ML) 2 ML AMPULE IV ONE (12:55)
[2025-05-19] MEDS: MAGNESIUM SULFATE 1GM/100ML 100 ML IV ONE (12:59)
[2025-05-19] MEDS: MAGNESIUM SULFATE 1GM/100ML 100 ML IV SCH (13:47)
[2025-05-19 14:15] LABS: INR 1.19 (0.9-1.15); Partial Thromboplastin Time 28.0 SEC (24.5-34.5); Prothrombin Time 12.4 sec (9.3-11.8)
--- NOTE | 2025-05-19 14:15 | DVH ---
CHEST RADIOGRAPH INDICATION: SOB TECHNIQUE: Single frontal view of the chest was obtained COMPARISON: XY CHEST XRAY 1 VIEW on DOS: 05/18/25, XY CHEST PORTABLE on DOS: 05/17/25 FINDINGS: Lines and Tubes: None Lungs: Increased mixed alveolar and interstitial markings seen throughout both lungs. Pleura: No effusion. No pneumothorax. Cardiomediastinal contours: Heart size is enlarged. Bones: No acute osseous abnormality. IMPRESSION: 1. Increased mixed alveolar and interstitial opacities throughout both lungs. Findings likely represent congestive heart failure.
[2025-05-19] MEDS ORDERED: ENOXAPARIN SOD 100 MG/1 ML SYRINGE SC ONE (16:00)
[2025-05-19] MEDS: ENOXAPARIN SOD 120 MG/0.8 ML SYRINGE SC ONE (17:23)
--- NOTE | 2025-05-19 17:23 | DVHPN2 ---
Subjective THIS MORNING PATIENT WENT INTO AFIB WITH A RVR REQUIRING IV DIGOXIN WELL CURRENTLY ON IV AMIODARONE DRIP, PATIENT'S BLOOD CULTURE CAME BACK GRAM-POSITIVE COCCI IN CHAINS ON BROAD-SPECTRUM IV ANTIBIOTICS. PATIENT IS CURRENTLY REQUIRING 12 L OF OXYGEN BY FACEMASK, UPGRADED TO D OU. Changes from previous H/P or p: No Changes Eyes: No Pain, No Vision change, No Conjunctivae inflammation, No Eyelid inflammation, No Other, No Redness ENT: No Ear pain, No Ear discharge, No Nose pain, No Nose discharge, No Nose congestion, No Mouth pain, No Mouth swelling, No Throat pain, No Throat swelling, No Other Cardiovascular: No Chest Pain, No Palpitations, No Orthopnea, No Paroxysmal Noc. Dyspnea; Edema; No Lt Headedness, No Other Respiratory: No Cough, No Dry, No Shortness of breath, No SOB with excertion, No Wheezing, No Hemoptysis, No Pleuritic Pain, No Sputum, No Other Gastrointestinal: No Nausea, No Vomiting; Abdominal Pain; No Diarrhea, No Constipation, No Melena, No Hematochezia, No Other Genitourinary: No Dysuria, No Frequency, No Incontinence, No Hematuria, No Retention, No Other Musculoskeletal: No other, No neck pain, No shoulder pain, No arm pain, No back pain, No hand pain, No leg pain, No foot pain Skin: No Rash, No Lesions, No Jaundice, No Bruising; Other Objective Vitals Vital Signs Date Time Temp Pulse Resp B/P (MAP) Pulse Ox O2 Delivery O2 Flow Rate FiO2 05/19/25 13:57 96 Mask 10.0 05/19/25 13:57 120 18 05/19/25 13:57 99 05/19/25 13:44 112/76 05/19/25 13:00 98.8 98.8 Intake/Output Intake and Output 05/19/25 07:00 Intake Total 1150 ml Output Total 900 ml Balance 250 ml Intake Oral 0 ml IV Total 1150 ml Output Urine Total 900 ml Exam HEENT PUPILS ARE REACTIVE NECK IS SUPPLE C IS S1-S2 IRREGULARLY IRREGULAR RATE AND RHYTHM RESPIRATORY DIMINISHED BREATH SOUNDS BILATERAL LUNG BASES GI POSITIVE BOWEL SOUND EXTREMITY 1+ PITTING EDEMA WITH A BILATERAL LOWER EXTREMITY OPEN WOUND AND CELLULITIS. 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 Medications Current Medications Medications Dose Ordered Sig/Reina Route Start Time Stop Time Status Last Admin Dose Admin Cefepime HCl 50 ml @ 12.5 mls/hr Q8HR IV 05/18/25 06:00 05/19/25 15:42 12.5 MLS/HR Albuterol 2.5 mg Q4HR NEB 05/18/25 02:00 05/19/25 13:57 2.5 MG Ipratropium [place] 0.5 mg Q4HR NEB 05/18/25 02:00 05/19/25 13:57 0.5 MG Vancomycin HCl 0 ml @ 0 mls/hr PER PHARMACY IV 05/17/25 23:30 Ondansetron HCl 4 mg Q4HP PRN IV 05/17/25 23:30 Diagnostic Test (Pha) 1 strip Q6HR 05/18/25 00:00 05/19/25 11:58 1 STRIP Insulin Human Regular Q6HR SC 05/18/25 00:00 05/19/25 05:35 2 UNITS Dextrose 50 ml UD PRN IV 05/17/25 23:30 Acetaminophen 650 mg Q6HP PRN PO 05/17/25 23:45 Docusate Sodium 100 mg BIDPRN PRN PO 05/18/25 00:30 Nitroglycerin 0.4 mg Q5MINP PRN SL 05/18/25 00:30 Morphine Sulfate 2 mg Q30M PRN IV 05/18/25 01:00 Amiodarone HCl 250 ml @ 16.66 mls/ hr Q15H1M IV 05/19/25 18:00 Furosemide 40 mg BIDD IV 05/19/25 18:00 Vancomycin HCl 250 ml @ 200 mls/hr Q8H IV 05/19/25 21:00 Digoxin 250 mcg Q6H IV 05/19/25 18:00 05/20/25 00:01 Enoxaparin Sodium 120 mg Q12H SC 05/20/25 06:00 Laboratory Results Laboratory Tests 05/19/25 09:31 Chemistry Test 05/19/25 09:31 Calcium Level 8.9 mg/dL (8.7-10.4) Magnesium Level 1.8 mg/dL (1.6-2.6) Coagulation Test 05/19/25 13:14 Prothrombin Time 12.4 sec (9.3-11.8) H Prothrombin Time INR 1.19 (0.9-1.15) H Activated Partial Thromboplast Time 28.0 SEC (24.5-34.5) Urinalysis Test 05/17/25 18:29 Urine Color Light-yellow (Yellow) Urine Clarity Clear (Clear) Urine pH 6.5 (5.0-9.0) Urine Specific [place] 1.014 (1.001-1.035) Urine Protein Negative (Negative) Urine Ketones Negative (Negative) Urine Blood Negative /uL (Negative) Urine Nitrite Negative (Negative) Urine Bilirubin Negative (Negative) Urine Urobilinogen Normal mg/dL (Negative) Urine Leukocyte Esterase Negative /uL (Negative) Urine RBC 1 /hpf (0 - 3) Urine Microscopic WBC /HPF (0-3) Urine Squamous Epithelial Cells None seen /hpf (<5) Urine Bacteria None seen /hpf (None Seen) Urine Glucose Trace mg/dL (Normal) Blood Gas Results Test 05/18/25 18:37 05/19/25 11:43 Arterial Blood pH 7.420 (7.350-7.450) 7.414 (7.350-7.450) FiO2 % 40.0 90.0 Microbiology Microbiology Date/Time Source Procedure Growth Status 05/17/25 17:07 Blood Blood Culture - Preliminary Streptococcus Group F Resulted Assessment/Plan Assessment/Plan 70-YEAR-OLD MALE WITH A KNOWN HISTORY OF DIABETES MELLITUS TYPE 2, CHRONIC RIGHT LOWER EXTREMITY CELLULITIS/CHRONIC VENOUS STASIS, COPD, CHRONIC NICOTINE DEPENDENCE, CHRONIC METHAMPHETAMINE USE WHO INITIALLY PRESENTED TO THE HOSPITAL WITH A FEVER BILATERAL LOWER EXTREMITY EDEMA AND SHORTNESS OF THE BREATH WITH A SATURATION 86% ROOM AIR FOUND TO HAVE 1. ACUTE ON CHRONIC HYPOXIC RESPIRATORY FAILURE SUSPECTED PNEUMONIA 2. G POSITIVE BACTEREMIA 3. ACUTE ON CHRONIC DIASTOLIC HEART FAILURE 4. BILATERAL LOWER EXTREMITY CELLULITIS 5. CHRONIC VENOUS STASIS CHANGES OF THE BILATERAL LEGS 6. CHRONIC NICOTINE DEPENDENCE 7. CHRONIC METHAMPHETAMINE USE 8. COPD CURRENTLY NOT IN EXACERBATION 9. AFIB WITH A RVR -IV AMIODARONE DRIP, THERAPEUTIC LOVENOX -BROAD-SPECTRUM IV ANTIBIOTICS, REPEAT BLOOD CULTURES, 2D ECHO TO RULE OUT ANY INFECTIVE ENDOCARDITIS, CARDIOLOGY CONSULTATION WELL INFECTIOUS DISEASE CONSULTATION. -IV DIURETICS, UPGRADED TO D OU, Plan discussed with: Patient, Other My Orders Orders - HARITHA ANDINO MD Procedure Category Date Status Time Blood Culture REILLY 05/19/25 Logged 16:37 Date of Service: May 19, 2025 Billing Provider: HARITHA ANDINO MD Common Visit Codes: NOT BILLABLE HARITHA ANDINO MD May 19, 2025 17:23
[2025-05-19] MEDS: DIGOXIN (250MCG/ML) 2 ML AMPULE IV SCH (17:26)
[2025-05-19] MEDS: FUROSEMIDE 40 MG/4 ML VIAL IV SCH (17:28)
[2025-05-19] MEDS: ACETAMINOPHEN 650 mg PER 20.3 mL UD PO PRN (17:34)
--- NOTE | 2025-05-19 17:44 | DVHPN2 ---
Progress Note Date Seen: May 19, 2025 Resident Creating Document: SHEILA JORDAN RESIDENT Medical Necessity Reason Pt with a Central, PICC or Fol: No Subjective Review of Systems Patient was seen to be in having tachycardia with a heart rate in the 150-180, morning following which cardiology were called stat Showed atrial fibrillation with a RVR Patient given IV metoprolol and started on amiodarone with anticoagulation Increased dose of Lasix Objective vital signs Vital Sign Date Time Temp Pulse Resp B/P (MAP) Pulse Ox O2 Delivery O2 Flow Rate FiO2 05/19/25 13:57 96 Mask 10.0 05/19/25 13:57 120 18 05/19/25 13:57 99 05/19/25 13:44 112/76 05/19/25 13:00 98.8 98.8 Total Intake and Output 05/18/25 05/18/25 05/19/25 15:00 23:00 07:00 Intake Total 600 ml 550 ml Output Total 900 ml Balance 600 ml -350 ml medications Current Medications Medications Dose Ordered Sig/Reina Route Start Time Stop Time Status Last Admin Dose Admin Cefepime HCl 50 ml @ 12.5 mls/hr Q8HR IV 05/18/25 06:00 05/19/25 15:42 12.5 MLS/HR Albuterol 2.5 mg Q4HR NEB 05/18/25 02:00 05/19/25 13:57 2.5 MG Ipratropium [place] 0.5 mg Q4HR NEB 05/18/25 02:00 05/19/25 13:57 0.5 MG Vancomycin HCl 0 ml @ 0 mls/hr PER PHARMACY IV 05/17/25 23:30 Ondansetron HCl 4 mg Q4HP PRN IV 05/17/25 23:30 Diagnostic Test (Pha) 1 strip Q6HR 05/18/25 00:00 05/19/25 11:58 1 STRIP Insulin Human Regular Q6HR SC 05/18/25 00:00 05/19/25 05:35 2 UNITS Dextrose 50 ml UD PRN IV 05/17/25 23:30 Acetaminophen 650 mg Q6HP PRN PO 05/17/25 23:45 Docusate Sodium 100 mg BIDPRN PRN PO 05/18/25 00:30 Nitroglycerin 0.4 mg Q5MINP PRN SL 05/18/25 00:30 Morphine Sulfate 2 mg Q30M PRN IV 05/18/25 01:00 Amiodarone HCl 250 ml @ 16.66 mls/ hr Q15H1M IV 05/19/25 18:00 Furosemide 40 mg BIDD IV 05/19/25 18:00 Vancomycin HCl 250 ml @ 200 mls/hr Q8H IV 05/19/25 21:00 Digoxin 250 mcg Q6H IV 05/19/25 18:00 05/20/25 00:01 Enoxaparin Sodium 120 mg Q12H SC 05/20/25 06:00 Examination Skin - Patients skin is warm and dry. HEENT - normocephalic, atraumatic, moist mucous membranes, no scleral icterus, no conjunctival pallor. Neck - full ROM, no LAD, slightly increased JVP Pulmonary - B/L equal air entry with basilar rales cardiovascular - irregularly irregular heart sounds. peripheral pulses normal radial 2+, pedal 2+. Bilateral lower extremity pitting edema GI - soft, nontender abdomen with umbilical hernia. no hepatospleenomegaly. Bowel sounds normoactive Neurological - Patient is A/O X 3 . Patient is Drowsy Bilateral upper extremity strength 5/5, bilateral lower extremity strength 5/5, no facial droop, normal speech, no tremor, no sensory deficiets. laboratory and microbiology Laboratory Tests 05/19/25 09:31 Test 05/19/25 09:31 Range/Units Serum Glucose 127 H 74-106 mg/dL Microbiology Date/Time Source Procedure Growth Status 05/17/25 17:07 Blood Blood Culture - Preliminary Streptococcus Group F Resulted Problem List/Assessment/Plan Problem List/Assessment/Plan Acute on chronic hypoxic respiratory failure Acute on chronic heart failure, systolic versus diastolic Atrial fibrillation with a RVR, new onset COPD with nicotine dependence Right lower extremity cellulitis Rule out structural heart disease Acute on chronic methamphetamine intoxication Medical noncompliance Obesity Plan/Recommendation - started on amiodarone - digoxin 0.5 mg followed by 0.25 mg 2 doses for a total of 1 mg for rate control - therapeutic Lovenox - diuresis for euvolemia If the patient does not convert to sinus rhythm, we suggest DANIELLE with cardioversion later during this admission - recommend BiPAP for night Goals of care discussed with the patient, RN, primary hospitalist. Time spent: 32 minutes Plan discussed with Dr. Velasquez Plan discussed with: Patient, Other (RN) My Orders My Orders Orders - SHEILA JORDAN RESIDENT Procedure Category Date Status Time Chest Xray 1 View XY 05/19/25 Resulted 11:39 Abg W/ Co-Ox RT 05/19/25 Logged 11:39 Furosemide Injection PHA 05/19/25 In Process (Lasix Injection) 18:00 Platelet Monitoring CARMEN 05/19/25 In Process 12:13 Heparin Per CARMEN 05/19/25 In Process Standardized Proce 12:13 Discontinue All Im [facility]MEN 05/19/25 In Process Injections 12:13 Stat Ekg For Chest [facility] 05/19/25 In Process Pain 12:13 Transfer Orders XFER 05/19/25 Transmitted 13:02 Digoxin Injection PHA 05/19/25 In Process (Lanoxin Injection) 18:00 Potassium LAB 05/19/25 Logged 18:00 Magnesium LAB 05/19/25 Logged 18:00 Enoxaparin Sodium PHA 05/20/25 In Process (Lovenox) 06:00 Dietary Evaluation Review Comments: CCHO-60 Cardiac Diet Expected Outcomes/Goals: Controlled DM, gradual wt loss and healed wounds SHEILA JORDAN RESIDENT May 19, 2025 17:44
[2025-05-19 18:24] LABS: Potassium 4.2 mmol/L (3.5-5.1)
[2025-05-19 18:31] LABS: Magnesium 2.3 mg/dL (1.6-2.6)
--- NOTE | 2025-05-19 18:48 | DVHSR ---
APPROVED REPORT EXAM: Two-dimensional and M-mode echocardiogram with Doppler and color Doppler. Blood Pressure: 135/79 mmHg INDICATION Syncope RISK FACTORS Height: 60, Weight: 130 DIMENSIONS LVDd 6.5 (3.8-5.7cm) LA (2D) 5.1 (1.9-4.0cm) Aortic Root 3.7 (2.0-3.7cm) LVDs 4.7 (2.5-4.0cm) LA (MM) (1.9-4.0cm) Aortic Cusp Exc 2.0 (1.5-2.0cm) EF (%) 52.0 (55-70%) Rt. Atrium 5.2 (1.9-4.0cm) Asc. Aorta cm Mitral Valve Mitral Mitral Stenosis E wave 0.95m/s MV Mean GR. mmHg A wave 1.01m/s MV Peak GR. mmHg E/A ratio 0.9 2D MVA cm2 DECEL Time 191ms PRESS 1/2 Time 63ms IVRT ms Dop MVA 3.47cm2 Aortic Valve Aortic Valve Aortic Stenosis V1 1.03m/s AO Mean GR. 7mmHg V2 1.72m/s AO Peak GR. 12mmHg LVOT Diameter 2.4 (1.8-2.4cm) Doppler EDILBERTO 2.71cm2 Pulmonic Valve V2 1.07m/s Tricuspid Valve TR Velocity 2.64m/s RVSP 31mmHg Other Information Technically limited study due to patient laying flat on his back during exam. Conclusion Left ventricle: The cavity size is upper normal. Systolic function is normal. The estimated ejection fraction is 50-55%. Right ventricle: Systolic function is normal. Mitral valve: There is no stenosis. There is trace regurgitation. Aortic valve: The valve is tricuspid. There is no stenosis. There is no regurgitation. Tricuspid valve: There is no stenosis. There is trace regurgitation. Pericardium: There is no pericardial effusion. Inferior vena cava: The vessel is dilated. There is normal respiratory phasic variation.
[2025-05-19] MEDS: VANCOMYCIN 1.25GM/250ML 250 ML IV SCH (20:35)
--- NOTE | 2025-05-19 23:07 | DVHPN2 ---
Progress Note - Dictate Date Seen: May 19, 2025 Medical Necessity Reason Pt with a Central, PICC or Fol: No Subjective Patient seen and examined at bedside. Remains on supplemental oxygen Overnight events reviewed. vital signs Vital Sign Date Time Temp Pulse Resp B/P (MAP) Pulse Ox O2 Delivery O2 Flow Rate FiO2 05/19/25 20:29 91 19 120/75 (90) 92 05/19/25 20:00 97.5 97.5 05/19/25 20:00 Hi-Flow NC 12 N/A Total Intake and Output 05/18/25 05/18/25 05/19/25 15:00 23:00 07:00 Intake Total 600 ml 550 ml Output Total 900 ml Balance 600 ml -350 ml medications Current Medications Medications Dose Ordered Sig/Reina Route Start Time Stop Time Status Last Admin Dose Admin Cefepime HCl 50 ml @ 12.5 mls/hr Q8HR IV 05/18/25 06:00 05/19/25 22:19 12.5 MLS/HR Albuterol 2.5 mg Q4HR NEB 05/18/25 02:00 05/19/25 22:59 2.5 MG Ipratropium [place] 0.5 mg Q4HR NEB 05/18/25 02:00 05/19/25 22:59 0.5 MG Vancomycin HCl 0 ml @ 0 mls/hr PER PHARMACY IV 05/17/25 23:30 Ondansetron HCl 4 mg Q4HP PRN IV 05/17/25 23:30 Diagnostic Test (Pha) 1 strip Q6HR 05/18/25 00:00 05/19/25 17:29 1 STRIP Insulin Human Regular Q6HR SC 05/18/25 00:00 05/19/25 17:49 4 UNITS Dextrose 50 ml UD PRN IV 05/17/25 23:30 Acetaminophen 650 mg Q6HP PRN PO 05/17/25 23:45 05/19/25 17:34 650 MG Docusate Sodium 100 mg BIDPRN PRN PO 05/18/25 00:30 Nitroglycerin 0.4 mg Q5MINP PRN SL 05/18/25 00:30 Morphine Sulfate 2 mg Q30M PRN IV 05/18/25 01:00 Amiodarone HCl 250 ml @ 16.66 mls/ hr Q15H1M IV 05/19/25 18:00 05/19/25 17:25 16.66 MLS/HR Furosemide 40 mg BIDD IV 05/19/25 18:00 05/19/25 17:28 40 MG Vancomycin HCl 250 ml @ 200 mls/hr Q8H IV 05/19/25 21:00 05/19/25 20:35 200 MLS/HR Digoxin 250 mcg Q6H IV 05/19/25 18:00 05/20/25 00:01 05/19/25 17:26 250 MCG Enoxaparin Sodium 120 mg Q12H SC 05/20/25 06:00 objective Gen.: Patient lying in bed in no apparent distress. On supplemental oxygen. Head: Normocephalic, atraumatic. Eyes: EOMI/PERRLA. Ears: Normal hearing. Normal anatomy. Neck/trachea: Trachea midline, supple. Nose: Normal external anatomy. Mouth: Moist mucous membranes. Chest: Decreased air entry bilaterally. No wheezing or rhonchi. Cardiovascular: Positive S1, positive S2. Regular rate and rhythm. Abdomen: Positive bowel sounds in all 4 quadrants. Soft, non-tender, non- distended. : Deferred. Rectal: Deferred. Skin: Warm, dry. Intact. Extremities: 2+ radial pulses bilaterally. No lower extremity edema. Neuro: Awake, alert, altered. No gross motor or sensory deficits. Cranial nerves II through XII intact. Gait not assessed. laboratory and microbiology Laboratory Tests 05/19/25 17:53 05/19/25 09:31 Test 05/19/25 09:31 Range/Units Serum Glucose 127 H 74-106 mg/dL Assessment/Plan Impression: Sepsis Acute hypoxic respiratory failure Dependence on supplemental O2 Type 2 diabetes mellitus Nicotine dependence Methamphetamine abuse Obesity Events: Remains on supplemental oxygen Currently on 10 LPM --> 8 LPM simple mask Taper O2 as tolerated; improving oxygen requirements Patient is altered. ABG reviewed, compensated. CXR demonstrates increased mixed alveolar and interstitial opacities throughout both lungs. Findings likely represent congestive heart failure.. Continue bronchodilators Continue antibiotics Pain control Avoid oversedation Follow up Echo Follow up Cardiology recs. Head of bed elevation Aspiration precautions Continue diuresis with Lasix Monitor renal function Monitor electrolytes. Supplement as necessary. Potassium supplementation Maintain euvolemia Lovenox for DVT ppx Labs and imaging reviewed. Rest of plan as noted below. Plan: Supplemental oxygen Titrate to keep O2 sats above 92%. CXR on 05/17 demonstrates marginal cardiomegaly with bilateral perihilar vascular congestion. Findings of congestive failure versus infection. CT abdomen-pelvis on 05/17 reviewed, shows fat-containing periumbilical hernia without herniated bowel loops or significant inflammatory changes. Enlarged bilateral inguinal region lymph nodes with mild surrounding inflammatory changes on the right. These are presumably reactive. Continue bronchodilators. Continue antibiotics F/u cultures Follow up ID recs Follow up Echocardiogram Follow up Cardiology recs Accu-Cheks, ISS. Diurese with Lasix as tolerated Monitor renal function. Monitor electrolytes. Supplement as necessary. Monitor ins and outs. Recommend diet and lifestyle modifications for weight reduction Obesity complicates all care Smoking cessation discussed greater than 10 minutes. Counseled against substance use. DVT prophylaxis. Prognosis: Poor given patient's multiple co-morbidities. Condition: Critical Rest of plan per hospitalist and other consultants. A total of 35 minutes of critical care time was spent reviewing the patient record, examining the patient, making a diagnostic and therapeutic plan, discussing this plan with the medical personnel, following up on diagnostic studies and following the patient for clinical stability excluding any and all procedures. At least 50% of this time was spent in direct, [id number] contact. Thank you, COLLINS Pablo, for allowing me to participate in this patient's care. Further recommendations will depend on the patient's clinical course. Please do not hesitate to contact me if you have any questions or concerns. This medical document was created using an electronic medical record system with avocadostore computerized dictation system. Although these documentations are being carefully reviewed, there may still be some phonetic and typographical changes. The errors are purely typographical, due to imperfection on the software program, and do not reflect any compromise in the patient's medical care. Dietary Evaluation Review Comments: CCHO-60 Cardiac Diet Expected Outcomes/Goals: Controlled DM, gradual wt loss and healed wounds Plan discussed with: Other (SHAWN Black) WHITNEY MCKEON [facility] May 19, 2025 23:07
--- NOTE | 2025-05-19 23:57 | DVHINCON2 ---
Date of service: May 18, 2025 Family History: Patient reports no known family medical history. Allergies: Coded Allergies: NO KNOWN ALLERGIES (Unverified , 04/14/23) Home Meds Reported Medications Potassium Chloride (POTASSIUM CHLORIDE CR) 10 Meq Tb, 20 MEQ PO DAILY, TAB 05/18/25 Ibuprofen Micronized (Ibuprofen) 800 Mg Tab, TAB PO 05/18/25 Albuterol Sulfate (Albuterol Sulfate Hfa) 108 Mcg/Act Aer, INH 05/18/25 Current Medications Current Medications Medications (Trade) Dose Ordered Sig/Reina Route PRN Reason Start Time Stop Time Status Last Admin Furosemide (Lasix Injection) 20 mg DAILY IV 05/19/25 10:00 05/19/25 11:47 DC 05/19/25 10:30 Amiodarone HCl 250 ml @ 16.66 mls/ hr Q15H1M IV 05/19/25 18:00 05/19/25 17:25 Furosemide (Lasix Injection) 40 mg BIDD IV 05/19/25 18:00 05/19/25 17:28 Heparin Sodium/ Dextrose 250 ml @ 21.744 mls/ hr [id number] IV 05/19/25 11:45 05/19/25 12:17 DC Magnesium Sulfate/ Dextrose 100 ml @ 100 mls/hr Q1HR IV 05/19/25 13:00 05/19/25 14:59 DC 05/19/25 15:43 Heparin Sodium/ Dextrose 250 ml @ 10 mls/hr Q24H IV 05/19/25 12:15 05/19/25 16:19 DC Vancomycin HCl 250 ml @ 200 mls/hr Q8H IV 05/19/25 21:00 05/19/25 20:35 Digoxin (Lanoxin Injection) 250 mcg Q6H IV 05/19/25 18:00 05/20/25 00:01 05/19/25 23:28 Enoxaparin Sodium (Lovenox) 120 mg Q12H SC 05/20/25 06:00 Vital Signs Vital Signs Date Time Temp Pulse Resp B/P (MAP) Pulse Ox O2 Delivery O2 Flow Rate FiO2 05/19/25 23:28 92 05/19/25 20:29 19 120/75 (90) 92 05/19/25 20:00 97.5 97.5 05/19/25 20:00 Hi-Flow NC 12 N/A Labs/Diagnostic Data Labs Test 05/19/25 17:53 05/19/25 17:35 05/19/25 13:14 05/19/25 11:43 Range/Units Potassium Level 4.2 3.5-5.1 mmol/L Magnesium Level 2.3 1.6-2.6 mg/dL POC Glucose 210 H 70-106 mg/dl Prothrombin Time 12.4 H 9.3-11.8 sec Prothrombin Time INR 1.19 H 0.9-1.15 Activated Partial Thromboplast Time 28.0 24.5-34.5 SEC Vancomycin Level Trough 8.5 5-10 ug/mL Blood Gas Specimen Type Arterial Blood Gas Sample Site Right radial Blood Gas Patient Temperature 37.0 Arterial Blood Date Drawn Arterial Blood pH 7.414 7.350-7.450 Arterial Blood Partial Pressure CO2 41.5 35.0-48.0 mmHg Arterial Blood Partial Pressure O2 70.6 L 83.0-108.0 mmHg Arterial Blood HCO3 26.0 21.0-28.0 mmol/L Arterial Blood Oxygen Saturation 94.4 94.0-98.0 % Arterial Blood Base Excess 1.2 -2.0-3.0 mmol/L Arterial Blood Oxyhemoglobin 93.0 L 94.0-98.0 % Arterial Blood Carboxyhemoglobin 1.1 0.5-1.5 % Arterial Blood Methemoglobin 0.4 0.0-1.5 % Arterial Blood Deoxyhemoglobin 5.5 H 0.0-5.0 % [place] Test Positive Blood Gas Total Hemoglobin 15.30 13.5-17.5 g/dL Blood Gas Liter Flow 12.00 Blood Gas Modality Mask - nrb FiO2 % 90.0 Test 05/19/25 09:31 05/19/25 05:13 05/18/25 10:35 05/17/25 20:25 Range/Units White Blood Count 29.2 H 4.4-10.8 10^3/uL Red Blood Count 4.58 4.5-5.90 10^6/uL Hemoglobin 14.2 13.5-17.5 g/dL Hematocrit 42.4 41.0-53.0 % Mean Corpuscular Volume 92.5 80.0-100.0 fL Mean Corpuscular Hemoglobin 31.1 28.0-32.0 pg Mean Corpuscular Hemoglobin Concent 33.6 32.0-36.0 g/dL Red Cell Distribution Width 14.0 11.8-14.3 % Platelet Count 161 140-450 10^3/uL Mean Platelet Volume 9.6 6.9-10.8 fL Neutrophils (%) (Auto) 37.0-80.0 % Lymphocytes (%) (Auto) 10.0-50.0 % Monocytes (%) (Auto) 0.0-12.0 % Basophils (%) (Auto) 0.0-2.0 % Neutrophils # (Auto) 1.6-8.6 10 ^3/uL Lymphocytes # (Auto) 0.4-5.4 10 ^3/uL Monocytes # (Auto) 0-1.3 10 ^3/uL Differential Total Cells Counted 100.0 100 Neutrophils % (Manual) 71 37.0-80.0 Band Neutrophils % (Manual) 16 Lymphocytes % (Manual) 3 L 10.0-50.0 Monocytes % (Manual) 10 0-12 Eosinophils % (Manual) 0 0-7 Basophils % (Manual) 0 0.0-2.0 Metamyelocytes % (manual) 0 Myelocytes % (Manual) 0 Promyelocytes % (Manual) 0 Blast Cells % (Manual) 0 Reactive Lymphocytes 0 Platelet Estimate Adequate Sodium Level 135 L 136-145 mmol/L Chloride Level 99 98-107 mmol/L Carbon Dioxide Level 30 20-31 mmol/L Anion Gap 6 5-15 Blood Urea Nitrogen 14 9-23 mg/dL Creatinine 0.92 0.700-1.30 mg/dL Glomerular Filtration Rate Calc 91 >90 mL/min BUN/Creatinine Ratio 15.2 10.0-20.0 Serum Glucose 127 H 74-106 mg/dL Calcium Level 8.9 8.7-10.4 mg/dL Lactic Acid Level 2.0 0.4-2.0 mmol/L Hemoglobin A1c 6.8 H <5.7 % A1C Triglycerides Level 65 < 150 mg/dL Cholesterol Level 108 < 200 mg/dL LDL Cholesterol 37 < 100 mg/dL HDL Cholesterol 54 40-59 mg/dL Thyroid Stimulating Hormone (TSH) 1.25 0.55-4.78 uIU/mL Random Vancomycin Level 7.1 5-10 ug/mL Troponin I High Sensitivity 15 </=54 ng/L Test 05/17/25 18:29 05/17/25 17:07 Range/Units Urine Color Light-yellow Yellow Urine Clarity Clear Clear Urine pH 6.5 5.0-9.0 Urine Specific [place] 1.014 1.001-1.035 Urine Protein Negative Negative Urine Ketones Negative Negative Urine Blood Negative Negative /uL Urine Nitrite Negative Negative Urine Bilirubin Negative Negative Urine Urobilinogen Normal Negative mg/dL Urine Leukocyte Esterase Negative Negative /uL Urine RBC 1 0 - 3 /hpf Urine Microscopic WBC 0-3 /HPF Urine Squamous Epithelial Cells None seen <5 /hpf Urine Bacteria None seen None Seen /hpf Urine Glucose Trace Normal mg/dL Urine Opiates Screen Neg NEGATIVE Urine Fentanyl Screen Neg NEGATIVE Urine Barbiturates Screen Neg NEGATIVE Urine Phencyclidine Screen Neg NEGATIVE Urine Amphetamines Screen Pos NEGATIVE Urine Benzodiazepines Screen Neg NEGATIVE Urine Cocaine Screen Neg NEGATIVE Urine Cannabinoids Screen Neg NEGATIVE Eosinophils (%) (Auto) 1.2 0.0-7.0 % Eosinophils # (Auto) 0.1 0-0.8 10 ^3/uL Basophils # (Auto) 0 0-0.2 10 ^3/uL Nucleated Red Blood Cells 0.0 % Total Bilirubin 0.3 0.2-1.0 mg/dL Aspartate Amino Transferase (AST) 21 13-40 U/L Alanine Aminotransferase (ALT) 18 7-40 U/L Alkaline Phosphatase 83 46-116 U/L B-Type Natriuretic Peptide 73.73 0-100 pg/mL Total Protein 7.6 5.7-8.2 g/dL Albumin 3.8 3.2-4.8 g/dL Microbiology Date/Time Source Procedure Growth Status 05/17/25 17:07 Blood Blood Culture - Preliminary Streptococcus Group F Resulted Problems(with codes): (1) Fever (2) Hypoxemia (3) Sepsis (4) Methamphetamine abuse (5) Noncompliance with medications (6) Pulmonary vascular congestion Plan/Recommendation ASSESSMENT AND PLAN: ID Problem List: \-- Sepsis with Streptococcus dysgalactiae (group C strep) bacteremia, source unclear \-- Incarcerated umbilical hernia without strangulation \-- Acute hypoxic respiratory failure with bilateral pulmonary vascular congestion; history of COPD \-- Chronic bilateral venous stasis dermatitis with lower extremity edema and erythema; history of recurrent RLE cellulitis \-- Type 2 diabetes mellitus with hyperglycemia \-- Polysubstance abuse (including methamphetamine); nicotine abuse Assessment: Janes Watts is a 62 y.o. male with past medical history significant for type 2 diabetes mellitus, chronic bilateral venous stasis dermatitis, COPD, recurrent right lower extremity cellulitis, polysubstance abuse (including methamphetamine), and nicotine abuse, who presented with one day of acute onset abdominal pain after lifting a heavy object. Pain localized to the umbilical region with a palpable, tender, partially reducible umbilical hernia. On presentation he was febrile to 101.4F, tachycardic to 110 bpm, hypotensive to 116/52 mmHg, and hypoxic to 86% on room air in the field. Initial labs showed WBC 10.6 K/L, Hgb 13.8 g/dL, platelets 190 K/L, creatinine 1.02 mg/dL, BUN 11 mg/dL. CT abdomen/pelvis with IV contrast demonstrated a fat-containing umbilical hernia without herniated bowel loops or significant phlegmonous changes, and bilateral inguinal lymphadenopathy with mild surrounding inflammatory changes thought to be reactive. He was started empirically on IV vancomycin and cefepime. Subsequent blood cultures grew group C Streptococcus dysgalactiae in 4/4 bottles. Over the next 24 hours, his WBC increased to 26.5 K/L; Hgb 15.3 g/dL; platelets 173 K/L. L actic acid peaked at 3.7 mmol/L and improved to 1.752 mmol/L. Liver enzymes are unremarkable. Blood glucose levels are ~210 mg/dL with hemoglobin A1c 6.8%. UA is unremarkable; urine drug screen is positive for amphetamines. Chest X-ray shows mild to moderate bilateral pulmonary vascular congestion. He has been treated with IV steroids and bronchodilators for his respiratory status in the setting of pulmonary congestion and underlying COPD. At the time of this evaluation, he remains febrile (100.8F), tachycardic (111 bpm), on 3 L/min nasal cannula with SpO2 98%. Bilateral lower extremity exam shows chronic venous stasis dermatitis with edema, erythema, and some scabbing on the right lower extremity, but no ulcers, drainage, odor, or overt signs of acute purulent infection. General surgery evaluation concluded that he has an incarcerated umbilical hernia without evidence of strangulation; no indication for acute surgical intervention at this time. An echocardiogram has been performed, with results pending, to evaluate for possible endocarditis in the setting of streptococcal bacteremia. Group C Streptococcus dysgalactiae bacteremia is frequently associated with skin and soft tissue infections, sore throat, or pneumonia in patients with weakened immune systems. In this case, the precise portal of entry remains unclear; possibilities include chronic lower extremity skin disease and/or a respiratory source, but no definitive focus is identified on the provided data. His marked leukocytosis is likely multifactorial, and is suspected in part to be steroid- related. He appears clinically septic from the documented bacteremia, but is showing biochemical improvement in lactate with ongoing therapy. Plan: \-- Streptococcus dysgalactiae (group G strep) bacteremia / sepsis, source unclear -- Narrow antibiotic therapy from vancomycin and cefepime to IV cefazolin (Ancef) to target group G streptococcus as described. -- Repeat blood cultures to document clearance of bacteremia on current antibiotic therapy. -- Follow up transthoracic echocardiogram results to assess for evidence of infective endocarditis. -- Continue close clinical monitoring for evolving focal signs or symptoms that might clarify the primary source (pulmonary vs skin/soft tissue vs other). \-- Incarcerated umbilical hernia without strangulation -- Follow general surgery recommendations; no acute operative intervention at this time per surgery consult. -- Continue to monitor abdominal exam, pain, and hernia reducibility; low threshold to re-engage surgery if signs of strangulation, obstruction, or worsening tenderness develop. -- Manage pain as per primary team. \-- Acute hypoxic respiratory failure / pulmonary vascular congestion / COPD -- Continue supplemental oxygen; wean as tolerated as oxygenation improves. -- He has been started on IV steroids and bronchodilators for his respiratory condition; as oxygenation and overall status improve with diuresis and antibiotic therapy for presumed infectious process, de-escalate steroid use per treating teams recommendations. -- Continue bronchodilator and mucolytic therapy per pulmonology or primary team recommendations. -- Monitor for clinical and radiographic improvement in pulmonary congestion. \-- Chronic venous stasis dermatitis / history of recurrent lower extremity cellulitis -- Continue wound care for bilateral lower extremity venous stasis dermatitis. -- No open ulcers, drainage, or odor on exam; continue to monitor for development of new ulcers, drainage, or signs of acute cellulitis. \-- Type 2 diabetes mellitus with hyperglycemia -- Optimize glycemic control with goal blood glucose <180 mg/dL to support wound healing and infection control. -- Adjust inpatient regimen as needed per primary team. \-- Polysubstance abuse (including methamphetamine) / nicotine abuse -- Acknowledge contribution to overall immune compromise and infection risk as per transcript. -- Further counseling or treatment planning not discussed in transcript. \-- Follow-up and monitoring -- Trend WBC, platelets, hemoglobin, lactate, and metabolic panel. -- Monitor for clinical response to antibiotic de-escalation (fever curve, hemodynamics, mental status, respiratory status). -- Reassess need for ongoing broad-spectrum coverage if clinical status worsens or if repeat cultures suggest persistent bacteremia or new pathogen. Isolation Precautions: Not specified in transcript. History: The patients chart and medications were reviewed in detail and the patient was seen and examined per transcript. History obtained from: patient (per transcript; no alternative source specified). Janes Watts is a 62 y.o. male with history of type 2 diabetes mellitus, chronic bilateral venous stasis dermatitis, COPD, recurrent right lower extremity cellulitis, polysubstance abuse (including methamphetamine), and nicotine abuse. He presented with one day of acute onset sharp abdominal pain after moving a heavy object, localized to the umbilical area where a tender, partially reducible umbilical hernia was identified. On ED evaluation he was febrile (101.4F), tachycardic (HR 110 bpm), hypotensive (BP 116/52 mmHg), and hypoxic to 86% on room air. Initial labs showed WBC 10.6 K/L, Hgb 13.8 g/dL, creatinine 1.02 mg/dL, BUN 11 mg/dL. CT abdomen/pelvis with IV contrast revealed a fat-containing umbilical hernia without herniated bowel or phlegmon, and bilateral inguinal lymph nodes with mild surrounding inflammatory changes, thought likely reactive. He was started empirically on IV vancomycin and cefepime. He was subsequently noted to have blood cultures positive for group C Streptococcus dysgalactiae in 4/4 bottles. Over 24 hours his WBC jimi to 26.5 K/L, platelets decreased slightly to 173 K/L, and Hgb increased to 15.3 g/dL. Lactic acid initially elevated to 3.7 mmol/L has improved to 1.752 mmol/L. His blood glucoses are around 210 mg/dL with hemoglobin A1c 6.8%. Urinalysis is unremarkable; urine drug screen is positive for amphetamines. Liver enzymes are unremarkable per transcript. A chest X-ray shows mild to moderate bilateral pulmonary vascular congestion. He was started on IV steroids and bronchodilators for his respiratory condition in that context. At the time of this assessment he remains febrile (100.8F), tachycardic (111 bpm), and on 3 L/min nasal cannula oxygen with SpO2 98%. Exam shows chronic venous stasis dermatitis of both lower extremities with edema, erythema, and scabbing on the right lower extremity, but no drainage, malodor, or open ulcers. General surgery (Dr. Jaden Nichols) evaluated him and determined that he has an incarcerated umbilical hernia without strangulation and no current indication for emergent surgical repair. An echocardiogram has been completed; results are pending to evaluate for possible endocarditis in the setting of streptococcal bacteremia. Review of Systems: A complete review of systems was not documented in the transcript. Pertinent positives and negatives from the transcript include: -Constitutional: Febrile, diaphoretic, fatigued. -Gastrointestinal: Abdominal pain localized to umbilical region; tenderness over umbilical hernia. -Respiratory: Hypoxia noted (86% on room air pre-hospital); on supplemental oxygen. -Skin/Extremities: Chronic bilateral venous stasis dermatitis; lower extremity edema, erythema, scabbing on right lower extremity; no ulcers, drainage, or odor. Other systems: Not discussed in transcript. Past Medical History: -Type 2 diabetes mellitus -Chronic bilateral venous stasis dermatitis -COPD -Right lower extremity cellulitis, chronically recurrent -Polysubstance abuse (including methamphetamine use) -Nicotine abuse (Only conditions explicitly mentioned in the transcript are listed.) Past Surgical History: -Not provided in transcript. Home Medications (Prior to Admission): -Patient does not take any medications at home (per transcript). (No specific medication list provided beyond this statement.) Allergies: -No known drug allergies (per transcript). Family History: -Not provided in transcript. Social History: -Polysubstance abuse, including methamphetamine use (per transcript). -Nicotine abuse (per transcript). -Other social history details (alcohol use, living situation, employment, sexual history, etc.): Not provided in transcript. Objective: Vital Signs on Arrival (per transcript): -Temp: 101.4 F -BP: 116/52 mmHg -Pulse: 110 bpm -Resp: Not specified -SpO2: 86% on room air (en route/initial evaluation) Most Recent Vital Signs (per transcript at time of consult): -Temp: 100.8 F -BP: 108/68 mmHg -Pulse: 111 bpm -Resp: 18 breaths/min -SpO2: 98% on 3 L/min nasal cannula Admission Weight / BMI: -Not provided in transcript. Physical Exam: General: NAD. Diaphoretic, fatigued (per transcript). Neck: Supple. No masses. HEENT: PERRL. Normal lids and conjunctiva. Moist mucous membranes. Oropharynx without lesions, exudates or excessive erythema. Normal appearance of the external aspects of the nose and ears. Heart: Regular rhythm, normal rate. No murmur. No lower extremity edema specifically attributed to cardiac exam (note: lower extremity edema present in context of venous stasis as below). Lungs: Normal respiratory effort on 3 L/min nasal cannula. Clear to auscultation bilaterally. No wheezes. No crackles. Abdomen: Soft. Non-tender except over umbilical region. Non-distended. No masses or abdominal hernia other than a palpable, tender, partially reducible umbilical hernia as described. Msk: No digital cyanosis. Normal strength and tone in all 4 limbs. Bilateral lower extremity edema (per transcript). Skin: Warm and dry, no rashes noted elsewhere. Chronic bilateral venous stasis dermatitis with erythema; some scabbing on right lower extremity. No open ulcers, drainage, or odor on lower extremities (per transcript). Neuro: Alert. No facial droop or slurred speech. Extra-ocular movements intact. Sensation intact to soft touch in all 4 limbs (no deficits reported in transcript). Psych: Appropriate mood. Full affect. Oriented to person, place, time, and situation (per transcript). Lines: -Vascular access / other lines: Not provided in transcript. Diagnostic Studies: Available diagnostic studies were reviewed as documented in the transcript. Significant results are summarized below. Pertinent Imaging: -Chest X-ray -Findings (per transcript): -Mild to moderate bilateral pulmonary vascular congestion. -No additional radiographic details provided in transcript. -CT Abdomen and Pelvis with IV contrast -Findings (per transcript): -Fat-containing umbilical hernia without herniated bowel loops. -No significant phlegmonous changes. -Bilateral inguinal region lymph nodes with mild surrounding inflammatory changes, likely reactive. Pertinent Labs / Microbiology (per transcript): -On admission: -WBC: 10.6 K/L -Hemoglobin: 13.8 g/dL -Platelets: 190 K/L -Creatinine: 1.02 mg/dL -BUN: 11 mg/dL -Lactic acid: Initially 3.7 mmol/L, down to 1.752 mmol/L with treatment -Blood glucose: ~210 mg/dL -Hemoglobin A1c: 6.8% -Liver enzymes: Unremarkable -Follow-up labs (approximately 24 hours later): -WBC: 26.5 K/L -Hemoglobin: 15.3 g/dL -Platelets: 173 K/L -Urinalysis: Unremarkable. -Urine drug screen: Positive for amphetamines. -Blood cultures: -Growth of group C Streptococcus dysgalactiae in 4/4 bottles. Cardiac Studies: -Echocardiogram: Performed; results pending (per transcript). No additional diagnostics are provided in the transcript. Plan discussed with: Patient RODERICK CAMACHO MD May 19, 2025 23:57
[2025-05-20] VITALS (34 sets, daily range): BP systolic 107–151; BP diastolic 63–101; PULSE 78–106; RESP 15–37; TEMP 97.7–99.8; O2SAT 88–99
[2025-05-20] MEDS: ENOXAPARIN SOD 120 MG/0.8 ML SYRINGE SC SCH (05:53)
[2025-05-20 06:02] LABS: Hematocrit 42.2 % (41.0-53.0); Hemoglobin 14.5 g/dL (13.5-17.5); Mean Corpuscular Hemoglobin 31.3 pg (28.0-32.0); Mean Corpuscular Volume 91.1 fL (80.0-100.0); Nucleated Red Blood Cells % 0.1 %
[2025-05-20 06:40] LABS: Anion Gap 9 (5-15); Carbon Dioxide 28 mmol/L (20-31); Potassium 3.6 mmol/L (3.5-5.1)
[2025-05-20 06:46] LABS: BUN/Creatinine Ratio 18.7 (10.0-20.0); Blood Urea Nitrogen 14 mg/dL (9-23)
[2025-05-20 06:49] LABS: Calcium 8.6 mg/dL (8.7-10.4); Chloride 96 mmol/L (98-107); Glucose 176 mg/dL (74-106); Sodium 133 mmol/L (136-145)
[2025-05-20] MEDS ORDERED: VANCOMYCIN 1.25GM/250ML 250 ML IV SCH (14:00)
[2025-05-20] MEDS ORDERED: IPRATROPIUM BROM 0.5 MG/2.5ML INH SOL NEB PRN (15:15)
--- NOTE | 2025-05-20 15:19 | DVHPN2 ---
Progress Note - Dictate Date Seen: May 20, 2025 Medical Necessity Reason Pt with a Central, PICC or Fol: No Subjective Comfortable in bed. Says his last bowel movement was four days ago. Denies any abdominal pain nausea or vomiting. vital signs Vital Sign Date Time Temp Pulse Resp B/P (MAP) Pulse Ox O2 Delivery O2 Flow Rate FiO2 05/20/25 14:39 104 26 94 05/20/25 14:39 Nasal Cannula* 5 40 05/20/25 08:00 99.1 136/85 (102) 99.1 Total Intake and Output 05/19/25 05/19/25 05/20/25 15:00 23:00 07:00 Intake Total 250 ml 899.96 ml 549.12 ml Output Total 4200 ml 2160 ml Balance 250 ml -3300.04 ml -1610.88 ml medications Current Medications Medications Dose Ordered Sig/Reina Route Start Time Stop Time Status Last Admin Dose Admin Albuterol 2.5 mg Q4HR NEB 05/18/25 02:00 05/20/25 14:39 2.5 MG Ipratropium [place] 0.5 mg Q4HR NEB 05/18/25 02:00 05/20/25 14:39 0.5 MG Vancomycin HCl 0 ml @ 0 mls/hr PER PHARMACY IV 05/17/25 23:30 Cancel Ondansetron HCl 4 mg Q4HP PRN IV 05/17/25 23:30 Diagnostic Test (Pha) 1 strip Q6HR 05/18/25 00:00 05/20/25 12:30 1 STRIP Insulin Human Regular Q6HR SC 05/18/25 00:00 05/20/25 12:39 3 UNITS Dextrose 50 ml UD PRN IV 05/17/25 23:30 Acetaminophen 650 mg Q6HP PRN PO 05/17/25 23:45 05/19/25 23:27 650 MG Docusate Sodium 100 mg BIDPRN PRN PO 05/18/25 00:30 Nitroglycerin 0.4 mg Q5MINP PRN SL 05/18/25 00:30 Morphine Sulfate 2 mg Q30M PRN IV 05/18/25 01:00 Amiodarone HCl 250 ml @ 16.66 mls/ hr Q15H1M IV 05/19/25 18:00 05/20/25 10:25 16.66 MLS/HR Furosemide 40 mg BIDD IV 05/19/25 18:00 05/20/25 05:45 40 MG Enoxaparin Sodium 120 mg Q12H SC 05/20/25 06:00 05/20/25 05:53 120 MG Cefazolin Sodium/ Dextrose 50 ml @ 50 mls/hr Q8HR IV 05/20/25 14:00 Lactulose 30 ml BID PO 05/20/25 22:00 UNV objective Alert awake oriented x3. Asking when he can go home. HEENT neck supple no JVD. Heart irregular rate and rhythm S1-S2. Lungs fair air movement without any audible wheezing or rales. Abdomen obese soft nontender positive bowel sounds with a visible umbilical hernia not strangulated. Extremities improving chronic venous stasis as well as edema in the lower extremities. Positive pulses. laboratory and microbiology Laboratory Tests 05/20/25 05:38 Test 05/20/25 05:38 Range/Units Serum Glucose 176 H 74-106 mg/dL Assessment/Plan 1. ACUTE ON CHRONIC HYPOXIC RESPIRATORY FAILURE SUSPECTED PNEUMONIA 2. G POSITIVE BACTEREMIA 3. ACUTE ON CHRONIC DIASTOLIC HEART FAILURE 4. BILATERAL LOWER EXTREMITY CELLULITIS 5. CHRONIC VENOUS STASIS CHANGES OF THE BILATERAL LEGS 6. CHRONIC NICOTINE DEPENDENCE 7. CHRONIC METHAMPHETAMINE USE 8. COPD CURRENTLY NOT IN EXACERBATION 9. AFIB WITH A RVR -IV AMIODARONE DRIP and oral Eliquis. Patient is comfortable in bed. No bowel movement in four days. He wants to go home. Says he is not hungry therefore was not eating as much. I will start him on lactulose b.i.d. for constipation overnight. DC high dose Lovenox and start him on oral Eliquis for atrial fibrillation. Continue amiodarone drip overnight and transitioned to oral amiodarone tomorrow. Continue current antibiotics. Echocardiogram revealed normal ejection fraction without any significant acute pathology. Arrange for home safety evaluation and home health as well. Continue wound care to right lower extremity cellulitis. Continue IV diuretics for leg edema. Transitioned to oral Lasix tomorrow. Otherwise further clinical management per clinical course. We will have physical therapy evaluation to get him out of bed ambulate as well. Discussed with the patient as well as nurse at bedside regarding his care plan. Dietary Evaluation Review Comments: [id number] Cardiac Diet Expected Outcomes/Goals: Controlled DM, gradual wt loss and healed wounds Plan discussed with: Patient, Other CARLOS KRUGER MD May 20, 2025 15:19
[2025-05-20] MEDS: ceFAZolin 2 GM/D5W50ml 50 ML IV SCH (15:33)
[2025-05-20] MEDS: METOPROLOL SUCCINATE XL 50 MG TAB PO ONE (18:37)
--- NOTE | 2025-05-20 18:43 | DVHPN2 ---
Progress Note Date Seen: May 20, 2025 Resident Creating Document: SHEILA JORDAN RESIDENT Medical Necessity Reason Pt with a Central, PICC or Fol: No Subjective Review of Systems Patient was seen to be resting comfortably with 4-5 L oxygen via nasal cannula seen to be in atrial flutter Objective vital signs Vital Sign Date Time Temp Pulse Resp B/P (MAP) Pulse Ox O2 Delivery O2 Flow Rate FiO2 05/20/25 18:39 94 Nasal Cannula 5.0 05/20/25 18:39 40 05/20/25 17:00 84 21 140/89 (106) 05/20/25 16:00 99.8 99.8 Total Intake and Output 05/19/25 05/19/25 05/20/25 15:00 23:00 07:00 Intake Total 250 ml 899.96 ml 549.12 ml Output Total 4200 ml 2160 ml Balance 250 ml -3300.04 ml -1610.88 ml medications Current Medications Medications Dose Ordered Sig/Reina Route Start Time Stop Time Status Last Admin Dose Admin Vancomycin HCl 0 ml @ 0 mls/hr PER PHARMACY IV 05/17/25 23:30 Cancel Ondansetron HCl 4 mg Q4HP PRN IV 05/17/25 23:30 Diagnostic Test (Pha) 1 strip Q6HR 05/18/25 00:00 05/20/25 18:24 1 STRIP Insulin Human Regular Q6HR SC 05/18/25 00:00 05/20/25 12:39 3 UNITS Dextrose 50 ml UD PRN IV 05/17/25 23:30 Acetaminophen 650 mg Q6HP PRN PO 05/17/25 23:45 05/19/25 23:27 650 MG Docusate Sodium 100 mg BIDPRN PRN PO 05/18/25 00:30 Nitroglycerin 0.4 mg Q5MINP PRN SL 05/18/25 00:30 Morphine Sulfate 2 mg Q30M PRN IV 05/18/25 01:00 Amiodarone HCl 250 ml @ 16.66 mls/ hr Q15H1M IV 05/19/25 18:00 05/20/25 10:25 16.66 MLS/HR Furosemide 40 mg BIDD IV 05/19/25 18:00 05/20/25 05:45 40 MG Cefazolin Sodium/ Dextrose 50 ml @ 50 mls/hr Q8HR IV 05/20/25 14:00 05/20/25 15:33 50 MLS/HR Lactulose 30 ml BID PO 05/20/25 22:00 Albuterol 2.5 mg Q4HR PRN NEB 05/20/25 15:15 Ipratropium [place] 0.5 mg Q4HR PRN NEB 05/20/25 15:15 Apixaban 5 mg BID PO 05/20/25 22:00 Potassium Chloride 20 meq BID PO 05/20/25 22:00 Metoprolol Succinate 50 mg DAILY PO 05/21/25 10:00 Examination Skin - Patients skin is warm and dry. HEENT - normocephalic, atraumatic, moist mucous membranes, no scleral icterus, no conjunctival pallor. Neck - full ROM, no LAD, slightly increased JVP Pulmonary - B/L equal air entry with basilar rales cardiovascular - irregularly irregular heart sounds. peripheral pulses normal radial 2+, pedal 2+. Bilateral lower extremity pitting edema GI - soft, nontender abdomen with umbilical hernia. no hepatospleenomegaly. Bowel sounds normoactive Neurological - Patient is A/O X 3 . Patient is Drowsy Bilateral upper extremity strength 5/5, bilateral lower extremity strength 5/5, no facial droop, normal speech, no tremor, no sensory deficiets. laboratory and microbiology Laboratory Tests 05/20/25 05:38 Test 05/20/25 05:38 Range/Units Serum Glucose 176 H 74-106 mg/dL Microbiology Date/Time Source Procedure Growth Status 05/19/25 18:21 Nose MRSA Screen - Final Complete 05/19/25 17:53 Blood Blood Culture - Preliminary NO GROWTH AFTER 24 HOURS OF INCUBATION. Resulted Problem List/Assessment/Plan Problem List/Assessment/Plan Acute on chronic hypoxic respiratory failure Acute on chronic heart failure, likely diastolic Atrial fibrillation with a RVR, new onset, now atrial flutter COPD with nicotine dependence Right lower extremity cellulitis Rule out structural heart disease Acute on chronic methamphetamine intoxication Medical noncompliance Obesity Plan/Recommendation - continue on amiodarone - beta bobbi for rate control - therapeutic Lovenox - diuresis for euvolemia - recommend BiPAP for night Goals of care discussed with the patient, RN Plan discussed with Dr. Golden Plan discussed with: Patient, Other (RN) My Orders My Orders Orders - SHEILA JORDAN Procedure Category Date Status Time Electrocardigram EKG 05/20/25 Logged 16:07 Metoprolol Xl PHA 05/21/25 In Process Succinate (Toprol Xl) 10:00 Dietary Evaluation Review Comments: [facility]-60 Cardiac Diet Expected Outcomes/Goals: Controlled DM, gradual wt loss and healed wounds SHEILA JORDAN RESIDENT May 20, 2025 18:43
[2025-05-20] MEDS: POTASSIUM CHL 20 Meq TABLET PO SCH (21:28)
[2025-05-20] MEDS: APIXABAN 5 MG TAB PO SCH (21:29)
[2025-05-20] MEDS: LACTULOSE 20Gm/30ML SOLN PO SCH (21:32)
--- NOTE | 2025-05-20 22:31 | DVHPN2 ---
Progress Note - Dictate Date Seen: May 20, 2025 Medical Necessity Reason Pt with a Central, PICC or Fol: No Subjective Patient seen and examined at bedside. Remains on supplemental oxygen Overnight events reviewed. vital signs Vital Sign Date Time Temp Pulse Resp B/P (MAP) Pulse Ox O2 Delivery O2 Flow Rate FiO2 05/20/25 21:53 104 37 108/72 (84) 93 05/20/25 20:34 5.0 40 05/20/25 20:00 Nasal Cannula* 05/20/25 19:52 98.9 98.9 Total Intake and Output 05/19/25 05/19/25 05/20/25 15:00 23:00 07:00 Intake Total 250 ml 899.96 ml 578.28 ml Output Total 4200 ml 2160 ml Balance 250 ml -3300.04 ml -1581.72 ml medications Current Medications Medications Dose Ordered Sig/Reina Route Start Time Stop Time Status Last Admin Dose Admin Vancomycin HCl 0 ml @ 0 mls/hr PER PHARMACY IV 05/17/25 23:30 Cancel Ondansetron HCl 4 mg Q4HP PRN IV 05/17/25 23:30 Diagnostic Test (Pha) 1 strip Q6HR 05/18/25 00:00 05/20/25 18:24 1 STRIP Insulin Human Regular Q6HR SC 05/18/25 00:00 05/20/25 12:39 3 UNITS Dextrose 50 ml UD PRN IV 05/17/25 23:30 Acetaminophen 650 mg Q6HP PRN PO 05/17/25 23:45 05/19/25 23:27 650 MG Docusate Sodium 100 mg BIDPRN PRN PO 05/18/25 00:30 Nitroglycerin 0.4 mg Q5MINP PRN SL 05/18/25 00:30 Morphine Sulfate 2 mg Q30M PRN IV 05/18/25 01:00 Amiodarone HCl 250 ml @ 16.66 mls/ hr Q15H1M IV 05/19/25 18:00 05/20/25 10:25 16.66 MLS/HR Furosemide 40 mg BIDD IV 05/19/25 18:00 05/20/25 18:37 40 MG Cefazolin Sodium/ Dextrose 50 ml @ 50 mls/hr Q8HR IV 05/20/25 14:00 05/20/25 21:29 50 MLS/HR Lactulose 30 ml BID PO 05/20/25 22:00 Albuterol 2.5 mg Q4HR PRN NEB 05/20/25 15:15 Ipratropium [place] 0.5 mg Q4HR PRN NEB 05/20/25 15:15 Apixaban 5 mg BID PO 05/20/25 22:00 05/20/25 21:29 5 MG Potassium Chloride 20 meq BID PO 05/20/25 22:00 05/20/25 21:28 20 MEQ Metoprolol Succinate 50 mg DAILY PO 05/21/25 10:00 objective Gen.: Patient lying in bed in no apparent distress. On supplemental oxygen. Head: Normocephalic, atraumatic. Eyes: EOMI/PERRLA. Ears: Normal hearing. Normal anatomy. Neck/trachea: Trachea midline, supple. Nose: Normal external anatomy. Mouth: Moist mucous membranes. Chest: Decreased air entry bilaterally. No wheezing or rhonchi. Cardiovascular: Positive S1, positive S2. Regular rate and rhythm. Abdomen: Positive bowel sounds in all 4 quadrants. Soft, non-tender, non- distended. : Deferred. Rectal: Deferred. Skin: Warm, dry. Intact. Extremities: 2+ radial pulses bilaterally. No lower extremity edema. Neuro: Awake, alert, oriented x3. No gross motor or sensory deficits. Cranial nerves II through XII intact. Gait not assessed. laboratory and microbiology Laboratory Tests 05/20/25 05:38 Test 05/20/25 05:38 Range/Units Serum Glucose 176 H 74-106 mg/dL Assessment/Plan Impression: Sepsis Acute hypoxic respiratory failure Dependence on supplemental O2 Type 2 diabetes mellitus Nicotine dependence Methamphetamine abuse Obesity Events: Remains on supplemental oxygen Currently on 10 LPM Oxymizer--> 5 LPM NC Taper O2 as tolerated; improved oxygen requirements Chest x-ray demonstrates pulmonary vascular congestion. ABG reviewed, compensated. AFib with RVR today- amiodarone drip started Follow up Cardiology recs Continue bronchodilators Continue antibiotics ID recommendations appreciated. Pain control Avoid oversedation Follow up Echo Follow up Cardiology recs. Head of bed elevation Aspiration precautions Continue diuresis with Lasix - dose increased Monitor renal function Monitor electrolytes. Supplement as necessary. Potassium supplementation Maintain euvolemia Lovenox for DVT ppx CXR (05/19) reveals increased mixed alveolar and interstitial opacities throughout both lungs. Findings likely represent congestive heart failure. Labs and imaging reviewed. Rest of plan as noted below. Plan: Supplemental oxygen Titrate to keep O2 sats above 92%. CXR on 05/17 demonstrates marginal cardiomegaly with bilateral perihilar vascular congestion. Findings of congestive failure versus infection. CT abdomen-pelvis on 05/17 reviewed, shows fat-containing periumbilical hernia without herniated bowel loops or significant inflammatory changes. Enlarged bilateral inguinal region lymph nodes with mild surrounding inflammatory changes on the right. These are presumably reactive. Continue bronchodilators. Continue antibiotics F/u cultures Follow up ID recs Follow up Echocardiogram Follow up Cardiology recs Accu-Cheks, ISS. Diurese with Lasix as tolerated Monitor renal function. Monitor electrolytes. Supplement as necessary. Monitor ins and outs. Recommend diet and lifestyle modifications for weight reduction Obesity complicates all care Smoking cessation discussed greater than 10 minutes. Counseled against substance use. DVT prophylaxis. Prognosis: Poor given patient's multiple co-morbidities. Rest of plan per hospitalist and other consultants. Thank you, COLLINS Pablo, for allowing me to participate in this patient's care. Further recommendations will depend on the patient's clinical course. Please do not hesitate to contact me if you have any questions or concerns. This medical document was created using an electronic medical record system with [employer] dictation system. Although these documentations are being carefully reviewed, there may still be some phonetic and typographical changes. The errors are purely typographical, due to imperfection on the software program, and do not reflect any compromise in the patient's medical care. Dietary Evaluation Review Comments: [facility]-60 Cardiac Diet Expected Outcomes/Goals: Controlled DM, gradual wt loss and healed wounds Plan discussed with: Patient, Other (SHAWN Shah) WHITNEY MCKEON ACNP May 20, 2025 22:31
[2025-05-21] VITALS (21 sets, daily range): BP systolic 96–142; BP diastolic 62–97; PULSE 76–107; RESP 17–32; TEMP 98.4–99.5; O2SAT 88–97
--- NOTE | 2025-05-21 05:48 | DVH ---
CHEST RADIOGRAPH INDICATION: re-check bilat ling opacities TECHNIQUE: Single frontal view of the chest was obtained COMPARISON: XY CHEST XRAY 1 VIEW on DOS: 05/19/25, XY CHEST XRAY 1 VIEW on DOS: 05/18/25, XY CHEST PORTABLE on DOS: 05/17/25 FINDINGS: Lines and Tubes: None Lungs: Stable appearing diffuse Increased prominence of the pulmonary vasculature and interstitium. No pneumothorax. Cardiomediastinal contours: Cardiomegaly. Bones: Unremarkable IMPRESSION: 1. Stable appearing pulmonary edema. 2. Cardiomegaly.
[2025-05-21 06:24] LABS: Alanine Aminotransferase 18 U/L (7-40); Albumin 3.6 g/dL (3.2-4.8); Alkaline Phosphatase 101 U/L (46-116); Anion Gap 8 (5-15); BUN/Creatinine Ratio 22.2 (10.0-20.0); Bilirubin, Total 0.5 mg/dL (0.2-1.0); Blood Urea Nitrogen 16 mg/dL (9-23); Calcium 8.9 mg/dL (8.7-10.4); Carbon Dioxide 30 mmol/L (20-31); Chloride 92 mmol/L (98-107); Glucose 129 mg/dL (74-106); Potassium 3.9 mmol/L (3.5-5.1); Sodium 130 mmol/L (136-145); Total Protein 7.7 g/dL (5.7-8.2)
[2025-05-21 07:28] LABS: Hematocrit 45.1 % (41.0-53.0); Hemoglobin 15.4 g/dL (13.5-17.5); Mean Corpuscular Hemoglobin 31.2 pg (28.0-32.0); Mean Corpuscular Volume 90.9 fL (80.0-100.0); Nucleated Red Blood Cells % 0.0 %
[2025-05-21] MEDS: METOPROLOL SUCCINATE XL 50 MG TAB PO SCH (09:46)
[2025-05-21 10:46] LABS: Hepatitis B Surface Antigen Negative (Negative)
[2025-05-21] MEDS: fentaNYL CITRATE 100 MCG/2 ML VL IV ONE (11:00)
[2025-05-21] MEDS: MIDAZOLAM HCL 2MG/2ML 2ml VIAL (1mg/ml) IV ONE (11:00)
[2025-05-21 11:59] LABS: Hepatitis C Antibody Positive (Negative)
[2025-05-21] MEDS: ALBUTEROL SULF 2.5 MG/0.5ML(0.5%) NEB SOLN NEB PRN (12:22)
--- NOTE | 2025-05-21 12:44 | CONS ---
Pharmacy Clinical Information: Given the patients history of congestive heart failure, type 2 diabetes michele litus, and multiple cardiovascular risk factors, initiation of high-intensity statin therapy is strongly recommended for secondary prevention of atherosclerotic cardiovascular disease. MYA [facility]T [facility] RESIDENT May 21, 2025 12:44
--- NOTE | 2025-05-21 15:12 | DVHPN2 ---
Progress Note Date Seen: May 21, 2025 Resident Creating Document: SHEILA JORDAN RESIDENT Medical Necessity Reason Pt with a Central, PICC or Fol: No Subjective Review of Systems Patient seen and examined at the bedside Was seen to be in atrial flutter with a rate of 100-110 per minute Patient explained about cardioversion, he was anticoagulated and AFib/flutter less than 48 hours, he agreed and consented for the procedure Objective vital signs Vital Sign Date Time Temp Pulse Resp B/P (MAP) Pulse Ox O2 Delivery O2 Flow Rate FiO2 05/21/25 12:23 96 Nasal Cannula 4.0 05/21/25 12:23 76 22 05/21/25 12:23 36 05/21/25 09:46 113/81 05/21/25 07:53 99.5 99.5 Total Intake and Output 05/20/25 05/20/25 05/21/25 15:00 23:00 07:00 Intake Total 518.28 ml 783.28 ml 663.28 ml Output Total 380 ml 1200 ml 1200 ml Balance 138.28 ml -416.72 ml -536.72 ml medications Current Medications Medications Dose Ordered Sig/Reina Route Start Time Stop Time Status Last Admin Dose Admin Vancomycin HCl 0 ml @ 0 mls/hr PER PHARMACY IV 05/17/25 23:30 Cancel Ondansetron HCl 4 mg Q4HP PRN IV 05/17/25 23:30 Diagnostic Test (Pha) 1 strip Q6HR 05/18/25 00:00 05/21/25 12:12 1 STRIP Insulin Human Regular Q6HR SC 05/18/25 00:00 05/21/25 12:32 2 UNITS Dextrose 50 ml UD PRN IV 05/17/25 23:30 Acetaminophen 650 mg Q6HP PRN PO 05/17/25 23:45 05/19/25 23:27 650 MG Docusate Sodium 100 mg BIDPRN PRN PO 05/18/25 00:30 Nitroglycerin 0.4 mg Q5MINP PRN SL 05/18/25 00:30 Morphine Sulfate 2 mg Q30M PRN IV 05/18/25 01:00 Amiodarone HCl 250 ml @ 16.66 mls/ hr Q15H1M IV 05/19/25 18:00 05/21/25 13:54 16.66 MLS/HR Furosemide 40 mg BIDD IV 05/19/25 18:00 05/21/25 05:42 40 MG Cefazolin Sodium/ Dextrose 50 ml @ 50 mls/hr Q8HR IV 05/20/25 14:00 05/21/25 13:50 50 MLS/HR Lactulose 30 ml BID PO 05/20/25 22:00 05/21/25 09:46 30 ML Albuterol 2.5 mg Q4HR PRN NEB 05/20/25 15:15 05/21/25 12:22 2.5 MG Ipratropium [place] 0.5 mg Q4HR PRN NEB 05/20/25 15:15 Apixaban 5 mg BID PO 05/20/25 22:00 05/21/25 09:46 5 MG Potassium Chloride 20 meq BID PO 05/20/25 22:00 05/21/25 09:46 20 MEQ Metoprolol Succinate 50 mg DAILY PO 05/21/25 10:00 05/21/25 09:46 50 MG Examination Skin - Patients skin is warm and dry. HEENT - normocephalic, atraumatic, moist mucous membranes, no scleral icterus, no conjunctival pallor. Neck - full ROM, no LAD, slightly increased JVP Pulmonary - B/L equal air entry with improved basilar rales cardiovascular - irregularly irregular heart sounds. peripheral pulses normal radial 2+, pedal 2+. Bilateral lower extremity pitting edema GI - soft, nontender abdomen with umbilical hernia. no hepatospleenomegaly. Bowel sounds normoactive Neurological - Patient is A/O X 3 . Patient is Drowsy Bilateral upper extremity strength 5/5, bilateral lower extremity strength 5/5, no facial droop, normal speech, no tremor, no sensory deficiets. laboratory and microbiology Laboratory Tests 05/21/25 05:33 Test 05/21/25 05:33 Range/Units Serum Glucose 129 H 74-106 mg/dL Microbiology Date/Time Source Procedure Growth Status 05/20/25 13:35 Blood Blood Culture - Preliminary NO GROWTH AFTER 24 HOURS OF INCUBATION. Resulted 05/19/25 18:21 Nose MRSA Screen - Final Complete Problem List/Assessment/Plan Problem List/Assessment/Plan Acute on chronic hypoxic respiratory failure Acute on chronic heart failure, likely diastolic Atrial fibrillation with a RVR, new onset, now atrial flutter s/p electrical cardioversion, sinus rhythm restored COPD with nicotine dependence Right lower extremity cellulitis Methamphetamine use Medical noncompliance Obesity Plan/Recommendation - echocardiogram showed LVEF of 50-55%, normal systolic function, trace mitral regurgitation, normal aortic, tricuspid valve, RV systolic function normal - patient was started on amiodarone on 05/19, unsuccessful pharmacological cardioversion, electrical cardioversion performed today on 05/21, restored to sinus rhythm - continue rate control with metoprolol succinate 50 daily, long-term rhythm control with flecainide 50 mg twice daily - anticoagulation with the Eliquis 5 b.i.d. for 4 weeks - diuresis for euvolemia - patient will need cardiac event monitor as an outpatient and need to follow up outpatient with Cardiology. No further inpatient cardiac workup needed. Thank you for consulting Please recall if needed Goals of care discussed with the patient, RN Plan discussed with Dr. Golden Plan discussed with: Patient, Other (RN Kinsey) My Orders My Orders Orders - SHEILA JORDAN Procedure Category Date Status Time Electrocardigram EKG 05/20/25 Logged 16:07 Metoprolol Xl PHA 05/21/25 In Process Succinate (Toprol Xl) 10:00 Flecainide Tablet PHA 05/21/25 Transmitted (Tambocor Tablet) 15:15 Flecainide Tablet PHA 05/21/25 Transmitted (Tambocor Tablet) 22:00 [facility] Evaluation [facility] Expected Outcomes/Goals: Controlled DM, gradual wt loss and healed wounds SHEILA JORDAN RESIDENT May 21, 2025 15:12
[2025-05-21] MEDS ORDERED: METO-6 PO (15:40)
[2025-05-21] MEDS ORDERED: AMOX500T86 PO (15:40)
[2025-05-21] MEDS ORDERED: PRED20TA2 PO (15:40)
[2025-05-21] MEDS ORDERED: FLE50T PO (15:40)
[2025-05-21] MEDS ORDERED: APIX5TAB PO (15:40)
[2025-05-21] MEDS ORDERED: FAMO-161 PO (15:40)
[2025-05-21] MEDS ORDERED: LACT10SO3 PO (15:40)
[2025-05-21] MEDS ORDERED: ALBU108A5 IN (15:40)
--- NOTE | 2025-05-21 15:42 | DVHDS2 ---
Discharge Summary Date of Admission May 18, 2025 at 00:22 Date of Discharge: May 21, 2025 Labs/Diagnostic Data: Laboratory Results Test 05/21/25 12:11 05/21/25 05:33 05/20/25 20:05 05/20/25 13:35 POC Glucose 149 mg/dl (70-106) White Blood Count 15.6 10^3/uL (4.4-10.8) Red Blood Count 4.96 10^6/uL (4.5-5.90) Hemoglobin 15.4 g/dL (13.5-17.5) Hematocrit 45.1 % (41.0-53.0) Mean Corpuscular Volume 90.9 fL (80.0-100.0) Mean Corpuscular Hemoglobin 31.2 pg (28.0-32.0) Mean Corpuscular Hemoglobin Concent 34.3 g/dL (32.0-36.0) Red Cell Distribution Width 14.0 % (11.8-14.3) Platelet Count 181 10^3/uL (140-450) Mean Platelet Volume 9.4 fL (6.9-10.8) Neutrophils (%) (Auto) 81.5 % (37.0-80.0) Lymphocytes (%) (Auto) 7.4 % (10.0-50.0) Monocytes (%) (Auto) 10.6 % (0.0-12.0) Eosinophils (%) (Auto) 0.2 % (0.0-7.0) Basophils (%) (Auto) 0.3 % (0.0-2.0) Neutrophils # (Auto) 12.7 10 ^3/uL (1.6-8.6) Lymphocytes # (Auto) 1.2 10 ^3/uL (0.4-5.4) Monocytes # (Auto) 1.6 10 ^3/uL (0-1.3) Eosinophils # (Auto) 0 10 ^3/uL (0-0.8) Basophils # (Auto) 0 10 ^3/uL (0-0.2) Nucleated Red Blood Cells 0.0 % Sodium Level 130 mmol/L (136-145) Potassium Level 3.9 mmol/L (3.5-5.1) Chloride Level 92 mmol/L (98-107) Carbon Dioxide Level 30 mmol/L (20-31) Anion Gap 8 (5-15) Blood Urea Nitrogen 16 mg/dL (9-23) Creatinine 0.72 mg/dL (0.700-1.30) Glomerular Filtration Rate Calc 100 mL/min (>90) BUN/Creatinine Ratio 22.2 (10.0-20.0) Serum Glucose 129 mg/dL (74-106) Calcium Level 8.9 mg/dL (8.7-10.4) Total Bilirubin 0.5 mg/dL (0.2-1.0) Aspartate Amino Transferase (AST) 24 U/L (13-40) Alanine Aminotransferase (ALT) 18 U/L (7-40) Alkaline Phosphatase 101 U/L (46-116) Total Protein 7.7 g/dL (5.7-8.2) Albumin 3.6 g/dL (3.2-4.8) Vancomycin Level Trough 10.1 ug/mL (5-10) HIV (1&2) Antibody Negative (Negative) Test 05/20/25 05:38 05/19/25 17:53 05/19/25 13:14 05/19/25 11:43 Hepatitis A IgM Antibody Negative Hepatitis B Surface Antigen Negative (Negative) Hepatitis B Core IgM Antibody Negative (Negative) Hepatitis C Antibody Positive (Negative) Magnesium Level 2.3 mg/dL (1.6-2.6) Prothrombin Time 12.4 sec (9.3-11.8) Prothrombin Time INR 1.19 (0.9-1.15) Activated Partial Thromboplast Time 28.0 SEC (24.5-34.5) Blood Gas Specimen Type Arterial Blood Gas Sample Site Right radial Blood Gas Patient Temperature 37.0 Arterial Blood Date Drawn [id number] Arterial Blood pH 7.414 (7.350-7.450) Arterial Blood Partial Pressure CO2 41.5 mmHg (35.0-48.0) Arterial Blood Partial Pressure O2 70.6 mmHg (83.0-108.0) Arterial Blood HCO3 26.0 mmol/L (21.0-28.0) Arterial Blood Oxygen Saturation 94.4 % (94.0-98.0) Arterial Blood Base Excess 1.2 mmol/L (-2.0-3.0) Arterial Blood Oxyhemoglobin 93.0 % (94.0-98.0) Arterial Blood Carboxyhemoglobin 1.1 % (0.5-1.5) Arterial Blood Methemoglobin 0.4 % (0.0-1.5) Arterial Blood Deoxyhemoglobin 5.5 % (0.0-5.0) Colten Test Positive Blood Gas Total Hemoglobin 15.30 g/dL (13.5-17.5) Blood Gas Liter Flow 12.00 Blood Gas Modality Mask - nrb FiO2 % 90.0 Test 05/19/25 09:31 05/19/25 05:13 05/18/25 10:35 05/17/25 20:25 Differential Total Cells Counted 100.0 (100) Neutrophils % (Manual) 71 (37.0-80.0) Band Neutrophils % (Manual) 16 Lymphocytes % (Manual) 3 (10.0-50.0) Monocytes % (Manual) 10 (0-12) Eosinophils % (Manual) 0 (0-7) Basophils % (Manual) 0 (0.0-2.0) Metamyelocytes % (manual) 0 Myelocytes % (Manual) 0 Promyelocytes % (Manual) 0 Blast Cells % (Manual) 0 Reactive Lymphocytes 0 Platelet Estimate Adequate Lactic Acid Level 2.0 mmol/L (0.4-2.0) Hemoglobin A1c 6.8 % A1C (<5.7) Triglycerides Level 65 mg/dL (< 150) Cholesterol Level 108 mg/dL (< 200) LDL Cholesterol 37 mg/dL (< 100) HDL Cholesterol 54 mg/dL (40-59) Thyroid Stimulating Hormone (TSH) 1.25 uIU/mL (0.55-4.78) Random Vancomycin Level 7.1 ug/mL (5-10) Troponin I High Sensitivity 15 ng/L (</=54) Test 05/17/25 18:29 05/17/25 17:07 Urine Color Light-yellow (Yellow) Urine Clarity Clear (Clear) Urine pH 6.5 (5.0-9.0) Urine Specific [place] 1.014 (1.001-1.035) Urine Protein Negative (Negative) Urine Ketones Negative (Negative) Urine Blood Negative /uL (Negative) Urine Nitrite Negative (Negative) Urine Bilirubin Negative (Negative) Urine Urobilinogen Normal mg/dL (Negative) Urine Leukocyte Esterase Negative /uL (Negative) Urine RBC 1 /hpf (0 - 3) Urine Microscopic WBC /HPF (0-3) Urine Squamous Epithelial Cells None seen /hpf (<5) Urine Bacteria None seen /hpf (None Seen) Urine Glucose Trace mg/dL (Normal) Urine Opiates Screen Neg (NEGATIVE) Urine Fentanyl Screen Neg (NEGATIVE) Urine Barbiturates Screen Neg (NEGATIVE) Urine Phencyclidine Screen Neg (NEGATIVE) Urine Amphetamines Screen Pos (NEGATIVE) Urine Benzodiazepines Screen Neg (NEGATIVE) Urine Cocaine Screen Neg (NEGATIVE) Urine Cannabinoids Screen Neg (NEGATIVE) B-Type Natriuretic Peptide 73.73 pg/mL (0-100) Other Laboratory Tests 05/21/25 05:33 Brief Hx & Hospital Course: 70-year-old male with past medical history of DM type 2, chronic venous stasis, medical noncompliance, COPD, RLE cellulitis, chronic methamphetamine abuse, nicotine dependence presents with complaints of abdominal pain x1 day. Patient endorsed to ER provider he was moving rocks when suddenly felt the sharp abdominal pain. On arrival to the emergency department the patient is found to be mildly tachycardic 110, BP 116/52. and febrile temperature 101.4. EMS reported the Patient was also hypoxic requiring supplemental oxygen with an oxygen saturation of 86% on room air. During the emergency department evaluation W10.6, H&H 13.8/41.0, Na 138, K4.0, BUN 11, creatinine 1.02, GFR 80, BNP 73, troponin negative. CXR reads marginal cardiomegaly with bilateral perihilar vascular congestion. Findings of congestive failure versus infection or both in the differential. CT of the abdomen and pelvis with IV contrast impression reads fat containing periumbilical hernia without herniated bowel loops or significant inflammatory changes. Enlarged bilateral inguinal regional lymph nodes with mild surrounding inflammatory change on the right presumably reactive. At this time there are no complaints of chest pain, palpitations, nausea, vomiting, hematemesis, hematochezia, melena.. He is admitted and evaluated by general surgeon recommended nurse surgery for his umbilical hernia. Patient underwent counseling and education regarding his methamphetamine misuse and advised to seek help with the rehab programs. While in the hospital patient received IV diuresis for his leg swelling. Received IV antibiotics wound care for his chronic venous stasis with a chronic leg wounds. Patient is evaluated by Infectious Disease physician as well. Patient is also counseled regarding medication compliance and have close follow up with the primary care physician. Otherwise while in the hospital overall his symptoms have improved. Oxygenation has improved. Heart rate is controlled. Patient had a cardioversion for his atrial flutter and Cardiology recommended to continue flecainide and other cardiac medications as well as anticoagulation with the Eliquis. I have talked with the patient regarding side effects of flecainide with a cardiac arrhythmia as well as Eliquis with the bleeding. Patient has verbalized understanding of risks and agreed to take the medications given benefits outweigh the risks. Patient is advised to continue other medications as he is prescribed as well. Overall given patient is clinically stable he wants to go home. Home health is being arranged and home oxygen being arranged. I have talked with the patient regarding his hospital diagnosis, treatment he received, discharge medications including side effects, discharge instructions, discharge follow-up plan of care. He has verbalized understanding of these and agree with the care plan as outlined. Consults/Reason for consult CONSULTATION REPORT . ................................................................................ ............................................................................... Date of service: May 18, 2025 History of Present Illness 70-year-old male with a history of multiple medical problems including chronic methamphetamine use with COPD and diabetes admitted secondary to sharp abdominal pain. Currently patient denies any abdominal pain. Patient also has a long history of incarcerated umbilical hernia. Past Medical History Diabetes. Chronic venous stasis. COPD. Assessment 1. Incarcerated umbilical hernia without strangulation. Plan/Recommendation 1. No indication for acute surgical intervention for the hernia. Plan discussed with: Patient JUANA CRAWFORD MD May 18, 2025 13:51 Operations or Procedures APPROVED REPORT EXAM: Two-dimensional and M-mode echocardiogram with Doppler and color Doppler. Blood Pressure: 135/79 mmHg INDICATION Syncope RISK FACTORS Height: 60, Weight: 130 DIMENSIONS LVDd 6.5 (3.8-5.7cm) LA (2D) 5.1 (1.9-4.0cm) Aortic Root 3.7 (2.0- 3.7cm) LVDs 4.7 (2.5-4.0cm) LA (MM) (1.9-4.0cm) Aortic Cusp Exc 2.0 (1.5- 2.0cm) EF (%) 52.0 (55-70%) Rt. Atrium 5.2 (1.9-4.0cm) Asc. Aorta cm Mitral Valve Mitral Mitral Stenosis E wave 0.95m/s MV Mean GR. mmHg A wave 1.01m/s MV Peak GR. mmHg E/A ratio 0.9 2D MVA cm2 DECEL Time 191ms PRESS 1/2 Time 63ms IVRT ms Dop MVA 3.47cm2 Aortic Valve Aortic Valve Aortic Stenosis V1 1.03m/s AO Mean GR. 7mmHg V2 1.72m/s AO Peak GR. 12mmHg LVOT Diameter 2.4 (1.8-2.4cm) Doppler EDILBERTO 2.71cm2 Pulmonic Valve V2 1.07m/s Tricuspid Valve TR Velocity 2.64m/s RVSP 31mmHg Other Information Technically limited study due to patient laying flat on his back during exam. Conclusion Left ventricle: The cavity size is upper normal. Systolic function is normal. The estimated ejection fraction is 50-55%. Right ventricle: Systolic function is normal. Mitral valve: There is no stenosis. There is trace regurgitation. Aortic valve: The valve is tricuspid. There is no stenosis. There is no regurgitation. Tricuspid valve: There is no stenosis. There is trace regurgitation. Pericardium: There is no pericardial effusion. Inferior vena cava: The vessel is dilated. There is normal respiratory phasic variation. SIGNED BY: BILL TORRES MD SIGNED DATE/TIME: 05/19/25 9603 Condition at Discharge: Stable Final Diagnosis/Problems List Atrial fibrillation/flutter converted to sinus rhythm, chronic venous stasis dermatitis of lower extremity, chronic lower extremity, morbid obesity with hypoventilation syndrome, chronic hypoxic respiratory failure on home O2, hepatitis-C antibody positive Discharge Disposition: Home Discharge Instruct/Medications Diet: Consistent carbohydrate, Cardiac 2g Na,low cholest Activity: No Restrictions, As Tolerated Follow Up/Referral: Primary care physician next week and referral to slider assembler for hepatitis-C evaluation and treatment Medications: Take medications as prescribed Scheduled Amoxicillin & Pot Clavulanate (Augmentin), 1 TAB PO BID Apixaban Base (Eliquis), 5 MG PO BID Famotidine (Pepcid AC), 20 MG PO DAILY Flecainide Acetate (Tambocor Tablet), 50 MG PO BID Lactulose (Lactulose), 30 ML PO QPM Metoprolol Succinate (Toprol Xl), 50 MG PO DAILY Prednisone (Prednisone), 20 MG PO BID Scheduled PRN Albuterol Sulfate (Albuterol Sulfate Hfa), 108 MCG IN Q4HPRN PRN Miscellaneous Medications Albuterol Sulfate (Albuterol Sulfate Hfa), INH, (Reported) Discontinued Medications Ibuprofen Micronized (Ibuprofen), TAB PO, (Reported) Potassium Chloride (Potassium Chloride Cr), 20 MEQ PO DAILY, (Reported) Discharge Statement: "Patient was advised to return to the ER or call 911 if any headaches, dizziness, shortness of breath, chest pain, abdominal pain, bleeding, fevers, or worsening of medical condition. Patient was counseled about treatment plan, medications, possible side effects, patientverbalized understanding. All questions were answered to the best of my ability. This discharge took greater then 30 minutes in planning, reviewing documentation, counseling the patient, and discussing with other team members." ASSESSMENT ASSESSMENT Assessment Atrial fibrillation/flutter converted to sinus rhythm, chronic venous stasis dermatitis of lower extremity, chronic lower extremity, morbid obesity with hypoventilation syndrome, chronic hypoxic respiratory failure on home O2, hepatitis-C antibody positive CARLOS KRUGER MD May 21, 2025 15:42
[2025-05-21] MEDS: FLECAINIDE ACETATE 50 MG TAB PO ONE (15:56)
[2025-05-21] MEDS: AMIODARONE HCL 200 MG TAB PO ONE (15:56)
[2025-05-21] MEDS ORDERED: FLECAINIDE ACETATE 50 MG TAB PO SCH (22:00)
--- NOTE | 2025-05-21 23:33 | DVHPN2 ---
Progress Note - Dictate Date Seen: May 21, 2025 Medical Necessity Reason Pt with a Central, PICC or Fol: No Subjective Patient seen and examined at bedside. Remains on supplemental oxygen Overnight events reviewed. vital signs Vital Sign Date Time Temp Pulse Resp B/P (MAP) Pulse Ox O2 Delivery O2 Flow Rate FiO2 05/21/25 16:02 98.4 80 18 93 05/21/25 13:33 05/21/25 12:23 Nasal Cannula 4.0 05/21/25 12:23 36 Total Intake and Output 05/20/25 05/20/25 05/21/25 15:00 23:00 07:00 Intake Total 518.28 ml 783.28 ml 663.28 ml Output Total 380 ml 1200 ml 1200 ml Balance 138.28 ml -416.72 ml -536.72 ml medications Current Medications Medications Dose Ordered Sig/Reina Route Start Time Stop Time Status Last Admin Dose Admin Vancomycin HCl 0 ml @ 0 mls/hr PER PHARMACY IV 05/17/25 23:30 Cancel objective Gen.: Patient lying in bed in no apparent distress. On supplemental oxygen. Head: Normocephalic, atraumatic. Eyes: EOMI/PERRLA. Ears: Normal hearing. Normal anatomy. Neck/trachea: Trachea midline, supple. Nose: Normal external anatomy. Mouth: Moist mucous membranes. Chest: Decreased air entry bilaterally. No wheezing or rhonchi. Cardiovascular: Positive S1, positive S2. Regular rate and rhythm. Abdomen: Positive bowel sounds in all 4 quadrants. Soft, non-tender, non- distended. : Deferred. Rectal: Deferred. Skin: Warm, dry. Intact. Extremities: 2+ radial pulses bilaterally. No lower extremity edema. Neuro: Awake, alert, oriented x3. No gross motor or sensory deficits. Cranial nerves II through XII intact. Gait not assessed. laboratory and microbiology Laboratory Tests 05/21/25 05:33 Test 05/21/25 05:33 Range/Units Serum Glucose 129 H 74-106 mg/dL Assessment/Plan Impression: Sepsis Acute hypoxic respiratory failure Dependence on supplemental O2 Type 2 diabetes mellitus Nicotine dependence Methamphetamine abuse Obesity Events: Remains on supplemental oxygen Currently on 4 LPM NC Taper O2 as tolerated; improved oxygen requirements CXR today reveals stable-appearing pulmonary edema, cardiomegaly. Patient was seen to be in atrial flutter with a rate of 100-110 per minute Patient underwent successful cardioversion Cardiology recommendations appreciated. Continue rate control with metoprolol succinate 50 daily, long-term rhythm control with flecainide 50 mg twice daily Anticoagulation with Eliquis 5 mg PO b.i.d. for 4 weeks Continue amiodarone drip. Bronchodilators PRN. Continue antibiotics. ID recommendations appreciated. Pain control Avoid oversedation Echocardiogram reviewed; LVEF of 50-55%, normal systolic function. Trace mitral regurgitation. Normal aortic, tricuspid valve. RV systolic function normal. Cardiology recs appreciated. Head of bed elevation Aspiration precautions Continue diuresis with Lasix Monitor renal function Monitor electrolytes. Supplement as necessary. Potassium supplementation Maintain euvolemia Lovenox for DVT ppx CXR (05/19) reveals increased mixed alveolar and interstitial opacities throughout both lungs. Findings likely represent congestive heart failure. Labs and imaging reviewed. Rest of plan as noted below. Plan: Supplemental oxygen Titrate to keep O2 sats above 92%. CXR on 05/17 demonstrates marginal cardiomegaly with bilateral perihilar vascular congestion. Findings of congestive failure versus infection. CT abdomen-pelvis on 05/17 reviewed, shows fat-containing periumbilical hernia without herniated bowel loops or significant inflammatory changes. Enlarged bilateral inguinal region lymph nodes with mild surrounding inflammatory changes on the right. These are presumably reactive. Continue bronchodilators. Continue antibiotics F/u cultures Follow up ID recs Accu-Cheks, ISS. Diurese with Lasix as tolerated Monitor renal function. Monitor electrolytes. Supplement as necessary. Monitor ins and outs. Recommend diet and lifestyle modifications for weight reduction Obesity complicates all care Smoking cessation discussed greater than 10 minutes. Counseled against substance use. DVT prophylaxis. Prognosis: Poor given patient's multiple co-morbidities. Rest of plan per hospitalist and other consultants. Thank you, COLLINS Pablo, for allowing me to participate in this patient's care. Further recommendations will depend on the patient's clinical course. Please do not hesitate to contact me if you have any questions or concerns. This medical document was created using an electronic medical record system with [employer]ation system. Although these documentations are being carefully reviewed, there may still be some phonetic and typographical changes. The errors are purely typographical, due to imperfection on the software program, and do not reflect any compromise in the patient's medical care. Dietary Evaluation Review Comments: CCHO-60 Cardiac Diet Expected Outcomes/Goals: Controlled DM, gradual wt loss and healed wounds Plan discussed with: Patient, Other (SHAWN Euceda) WHITNEY MCKEON [facility] May 21, 2025 23:33
--- NOTE | 2025-05-21 23:33 | DVHPN2 ---
Consult Progress Note Objective vital signs Vital Sign Date Time Temp Pulse Resp B/P (MAP) Pulse Ox O2 Delivery O2 Flow Rate FiO2 05/21/25 16:02 98.4 80 18 93 05/21/25 13:33 05/21/25 12:23 Nasal Cannula 4.0 05/21/25 12:23 36 Total Intake and Output 05/20/25 05/20/25 05/21/25 15:00 23:00 07:00 Intake Total 518.28 ml 783.28 ml 663.28 ml Output Total 380 ml 1200 ml 1200 ml Balance 138.28 ml -416.72 ml -536.72 ml medications Current Medications Medications Dose Ordered Sig/Reina Route Start Time Stop Time Status Last Admin Dose Admin Vancomycin HCl 0 ml @ 0 mls/hr PER PHARMACY IV 05/17/25 23:30 Cancel laboratory and microbiology Laboratory Tests 05/21/25 05:33 Test 05/21/25 05:33 Range/Units Serum Glucose 129 H 74-106 mg/dL Problem List/Assessment/Plan Problem List/Assessment/Plan ASSESSMENT AND PLAN: ID Problem List: \-- Sepsis with Streptococcus dysgalactiae (group C strep) bacteremia, source unclear \-- Incarcerated umbilical hernia without strangulation \-- Acute hypoxic respiratory failure with bilateral pulmonary vascular congestion; history of COPD \-- Chronic bilateral venous stasis dermatitis with lower extremity edema and erythema; history of recurrent RLE cellulitis \-- Type 2 diabetes mellitus with hyperglycemia \-- Polysubstance abuse (including methamphetamine); nicotine abuse Assessment: Janes Watts is a 62 y.o. male with past medical history significant for type 2 diabetes mellitus, chronic bilateral venous stasis dermatitis, COPD, recurrent right lower extremity cellulitis, polysubstance abuse (including methamphetamine), and nicotine abuse, who presented with one day of acute onset abdominal pain after lifting a heavy object. Pain localized to the umbilical region with a palpable, tender, partially reducible umbilical hernia. On presentation he was febrile to 101.4F, tachycardic to 110 bpm, hypotensive to 116/52 mmHg, and hypoxic to 86% on room air in the field. Initial labs showed WBC 10.6 K/L, Hgb 13.8 g/dL, platelets 190 K/L, creatinine 1.02 mg/dL, BUN 11 mg/dL. CT abdomen/pelvis with IV contrast demonstrated a fat-containing umbilical hernia without herniated bowel loops or significant phlegmonous changes, and bilateral inguinal lymphadenopathy with mild surrounding inflammatory changes thought to be reactive. He was started empirically on IV vancomycin and cefepime. Subsequent blood cultures grew group C Streptococcus dysgalactiae in 4/4 bottles. Over the next 24 hours, his WBC increased to 26.5 K/L; Hgb 15.3 g/dL; platelets 173 K/L. Lactic acid peaked at 3.7 mmol/L and improved to 1.752 mmol/L. Liver enzymes are unremarkable. Blood glucose levels are ~210 mg/dL with hemoglobin A1c 6.8%. UA is unremarkable; urine drug screen is positive for amphetamines. Chest X-ray shows mild to moderate bilateral pulmonary vascular congestion. He has been treated with IV steroids and bronchodilators for his respiratory status in the setting of pulmonary congestion and underlying COPD. At the time of this evaluation, he remains febrile (100.8F), tachycardic (111 bpm), on 3 L/min nasal cannula with SpO2 98%. Bilateral lower extremity exam shows chronic venous stasis dermatitis with edema, erythema, and some scabbing on the right lower extremity, but no ulcers, drainage, odor, or overt signs of acute purulent infection. General surgery evaluation concluded that he has an incarcerated umbilical hernia without evidence of strangulation; no indication for acute surgical intervention at this time. An echocardiogram has been performed, with results pending, to evaluate for possible endocarditis in the setting of streptococcal bacteremia. Group C Streptococcus dysgalactiae bacteremia is frequently associated with skin and soft tissue infections, sore throat, or pneumonia in patients with weakened immune systems. In this case, the precise portal of entry remains unclear; possibilities include chronic lower extremity skin disease and/or a respiratory source, but no definitive focus is identified on the provided data. His marked leukocytosis is likely multifactorial, and is suspected in part to be steroid- related. He appears clinically septic from the documented bacteremia, but is showing biochemical improvement in lactate with ongoing therapy. 05/19: TTE wo endocarditis Plan: \-- Streptococcus dysgalactiae (group C strep) bacteremia / sepsis, source unclear -- Narrow antibiotic therapy from vancomycin and cefepime to IV cefazolin (Ancef) to target group C streptococcus as described. -- Repeat blood cultures to document clearance of bacteremia on current antibiotic therapy. if repeat blood cultures are negative can transition to oral Keflex 1g TID to complete a 14 days course -- Continue close clinical monitoring for evolving focal signs or symptoms that might clarify the primary source (pulmonary vs skin/soft tissue vs other). \-- Incarcerated umbilical hernia without strangulation -- Follow general surgery recommendations; no acute operative intervention at this time per surgery consult. -- Continue to monitor abdominal exam, pain, and hernia reducibility; low threshold to re-engage surgery if signs of strangulation, obstruction, or worsening tenderness develop. -- Manage pain as per primary team. \-- Acute hypoxic respiratory failure / pulmonary vascular congestion / COPD -- Continue supplemental oxygen; wean as tolerated as oxygenation improves. -- He has been started on IV steroids and bronchodilators for his respiratory condition; as oxygenation and overall status improve with diuresis and antibiotic therapy for presumed infectious process, de-escalate steroid use per treating teams recommendations. -- Continue bronchodilator and mucolytic therapy per pulmonology or primary team recommendations. -- Monitor for clinical and radiographic improvement in pulmonary congestion. \-- Chronic venous stasis dermatitis / history of recurrent lower extremity cellulitis -- Continue wound care for bilateral lower extremity venous stasis dermatitis. -- No open ulcers, drainage, or odor on exam; continue to monitor for development of new ulcers, drainage, or signs of acute cellulitis. \-- Type 2 diabetes mellitus with hyperglycemia -- Optimize glycemic control with goal blood glucose <180 mg/dL to support wound healing and infection control. -- Adjust inpatient regimen as needed per primary team. \-- Polysubstance abuse (including methamphetamine) / nicotine abuse -- Acknowledge contribution to overall immune compromise and infection risk as per transcript. -- Further counseling or treatment planning not discussed in transcript. \-- Follow-up and monitoring -- Trend WBC, platelets, hemoglobin, lactate, and metabolic panel. -- Monitor for clinical response to antibiotic de-escalation (fever curve, hemodynamics, mental status, respiratory status). -- Reassess need for ongoing broad-spectrum coverage if clinical status worsens or if repeat cultures suggest persistent bacteremia or new pathogen. Isolation Precautions: Not specified in transcript. History: The patients chart and medications were reviewed in detail and the patient was seen and examined per transcript. History obtained from: patient (per transcript; no alternative source specified). Janes Guilherme Mac is a 62 y.o. male with history of type 2 diabetes mellitus, chronic bilateral venous stasis dermatitis, COPD, recurrent right lower extremity cellulitis, polysubstance abuse (including methamphetamine), and nicotine abuse. He presented with one day of acute onset sharp abdominal pain after moving a heavy object, localized to the umbilical area where a tender, partially reducible umbilical hernia was identified. On ED evaluation he was febrile (101.4F), tachycardic (HR 110 bpm), hypotensive (BP 116/52 mmHg), and hypoxic to 86% on room air. Initial labs showed WBC 10.6 K/L, Hgb 13.8 g/dL, creatinine 1.02 mg/dL, BUN 11 mg/dL. CT abdomen/pelvis with IV contrast revealed a fat-containing umbilical hernia without herniated bowel or phlegmon, and bilateral inguinal lymph nodes with mild surrounding inflammatory changes, thought likely reactive. He was started empirically on IV vancomycin and cefepime. He was subsequently noted to have blood cultures positive for group C Streptococcus dysgalactiae in 4/4 bottles. Over 24 hours his WBC jimi to 26.5 K/L, platelets decreased slightly to 173 K/L, and Hgb increased to 15.3 g/dL. Lactic acid initially elevated to 3.7 mmol/L has improved to 1.752 mmol/L. His blood glucoses are around 210 mg/dL with hemoglobin A1c 6.8%. Urinalysis is unremarkable; urine drug screen is positive for amphetamines. Liver enzymes are unremarkable per transcript. A chest X-ray shows mild to moderate bilateral pulmonary vascular congestion. He was started on IV steroids and bronchodilators for his respiratory condition in that context. At the time of this assessment he remains febrile (100.8F), tachycardic (111 bpm), and on 3 L/min nasal cannula oxygen with SpO2 98%. Exam shows chronic venous stasis dermatitis of both lower extremities with edema, erythema, and scabbing on the right lower extremity, but no drainage, malodor, or open ulcers. General surgery (Dr. Jaden Nichols) evaluated him and determined that he has an incarcerated umbilical hernia without strangulation and no current indication for emergent surgical repair. An echocardiogram has been completed; results are pending to evaluate for possible endocarditis in the setting of streptococcal bacteremia. Review of Systems: A complete review of systems was not documented in the transcript. Pertinent positives and negatives from the transcript include: -Constitutional: Febrile, diaphoretic, fatigued. -Gastrointestinal: Abdominal pain localized to umbilical region; tenderness over umbilical hernia. -Respiratory: Hypoxia noted (86% on room air pre-hospital); on supplemental oxygen. -Skin/Extremities: Chronic bilateral venous stasis dermatitis; lower extremity edema, erythema, scabbing on right lower extremity; no ulcers, drainage, or odor. Other systems: Not discussed in transcript. Past Medical History: -Type 2 diabetes mellitus -Chronic bilateral venous stasis dermatitis -COPD -Right lower extremity cellulitis, chronically recurrent -Polysubstance abuse (including methamphetamine use) -Nicotine abuse (Only conditions explicitly mentioned in the transcript are listed.) Past Surgical History: -Not provided in transcript. Home Medications (Prior to Admission): -Patient does not take any medications at home (per transcript). (No specific medication list provided beyond this statement.) Allergies: -No known drug allergies (per transcript). Family History: -Not provided in transcript. Social History: -Polysubstance abuse, including methamphetamine use (per transcript). -Nicotine abuse (per transcript). -Other social history details (alcohol use, living situation, employment, sexual history, etc.): Not provided in transcript. Objective: Vital Signs on Arrival (per transcript): -Temp: 101.4 F -BP: 116/52 mmHg -Pulse: 110 bpm -Resp: Not specified -SpO2: 86% on room air (en route/initial evaluation) Most Recent Vital Signs (per transcript at time of consult): -Temp: 100.8 F -BP: 108/68 mmHg -Pulse: 111 bpm -Resp: 18 breaths/min -SpO2: 98% on 3 L/min nasal cannula Admission Weight / BMI: -Not provided in transcript. Physical Exam: General: NAD. Diaphoretic, fatigued (per transcript). Neck: Supple. No masses. HEENT: PERRL. Normal lids and conjunctiva. Moist mucous membranes. Oropharynx without lesions, exudates or excessive erythema. Normal appearance of the external aspects of the nose and ears. Heart: Regular rhythm, normal rate. No murmur. No lower extremity edema specifically attributed to cardiac exam (note: lower extremity edema present in context of venous stasis as below). Lungs: Normal respiratory effort on 3 L/min nasal cannula. Clear to auscultation bilaterally. No wheezes. No crackles. Abdomen: Soft. Non-tender except over umbilical region. Non-distended. No masses or abdominal hernia other than a palpable, tender, partially reducible umbilical hernia as described. Msk: No digital cyanosis. Normal strength and tone in all 4 limbs. Bilateral lower extremity edema (per transcript). Skin: Warm and dry, no rashes noted elsewhere. Chronic bilateral venous stasis dermatitis with erythema; some scabbing on right lower extremity. No open ulcers, drainage, or odor on lower extremities (per transcript). Neuro: Alert. No facial droop or slurred speech. Extra-ocular movements intact. Sensation intact to soft touch in all 4 limbs (no deficits reported in transcript). Psych: Appropriate mood. Full affect. Oriented to person, place, time, and situation (per transcript). [facility] Evaluation [facility] Expected Outcomes/Goals: Controlled DM, gradual wt loss and healed wounds RODERICK CAMACHO MD May 21, 2025 23:33
--- NOTE | 2025-05-22 10:57 | ECG ---
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
--- NOTE | 2025-05-24 09:56 | ECG ---
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
== END 2025-05-21 18:40 | disposition home or self-care (01) | DRG 871 ==
LOC: EDBD 16:27 → ER 16:27 → OVERFLOW 05-18 00:22 → TELE-WESTW 05-18 02:31 → DOU 05-19 18:11
PROVIDERS: ADMIT Internal Medicine; ATTEND Internal Medicine
PROC: 5A0935A Assistance with Respiratory Ventilation, Less than 24 Consecutive Hours, High Flow/Velocity Cannula (ICD-10-PCS; 2025-05-19)
PROC: 5A2204Z Restoration of Cardiac Rhythm, Single (ICD-10-PCS; principal; 2025-05-21)
DX: A40.8 Other streptococcal sepsis (principal); J85.1 Abscess of lung with pneumonia; J96.21 Acute and chronic respiratory failure with hypoxia; K42.0 Umbilical hernia with obstruction, without gangrene; E66.2 Morbid (severe) obesity with alveolar hypoventilation; I48.92 Unspecified atrial flutter; I11.0 Hypertensive heart disease with heart failure; Z99.81 Dependence on supplemental oxygen; I50.9 Heart failure, unspecified; J44.0 Chronic obstructive pulmonary disease with (acute) lower respiratory infection; L03.115 Cellulitis of right lower limb; L03.116 Cellulitis of left lower limb; Z79.01 Long term (current) use of anticoagulants; F15.129 Other stimulant abuse with intoxication, unspecified; E11.65 Type 2 diabetes mellitus with hyperglycemia; F17.210 Nicotine dependence, cigarettes, uncomplicated; I87.2 Venous insufficiency (chronic) (peripheral); I48.91 Unspecified atrial fibrillation; Z90.49 Acquired absence of other specified parts of digestive tract; Z91.148 Patient's other noncompliance with medication regimen for other reason; Z68.35 Body mass index [BMI] 35.0-35.9, adult
CPT/HCPCS: 36415; 36600; 71045; 74176; 74177; 80048; 80053; 80061; 80074; 80202; 80307; 81001; 82805; 82962; 83036; 83605; 83735; 83880; 84132; 84443; 84484; 85007; 85025; 85027; 85610; 85730; 86703; 87040; 87077; 87081; 87186; 93005; 93306; 94640; 96365; 97163; G0378; J0131; J1815; J2250